=== PATIENT | male | born 1995 | race Caucasian/White ===

== ENCOUNTER 2022-11-06 00:43 | Emergency (ER) | payer OTHER, SELFPAY ==
--- NOTE | ~2022-11-06 | CT_ITS ---
EXAMINATION: CT FACIAL BONES WITHOUT CONTRAST CLINICAL INFORMATION: Right jaw swelling. Concern for osteomyelitis. COMPARISON: None available. TECHNIQUE: Multidetector CT imaging of the facial bones was performed without the use of intravenous contrast. Coronal and sagittal reformats created on an independent workstation were reviewed. This CT examination was performed using dose optimization techniques as appropriate, variously including the following: *Automated exposure control *Adjustment of mA and/or kV according to patient size (this includes techniques or standardized protocols for targeted exams where dose is matched to indication/reason for exam; i.e. extremities or head) *Use of iterative reconstruction technique DLP: 339 mGy-cm FINDINGS: Periapical lucencies involving the right mandibular second and third molars. These do not the root through the lateral mandibular cortex, however do extend along the lateral sockets. The right third mandibular molar is impacted with associated caries of the posterior aspect right ventricular second molar. No significant periapical/odontogenic disease elsewhere. There is no cortical destruction or periosteal reaction of the mandible to suggest osteomyelitis. Marked soft tissue edema throughout the right buccal fat and along the lateral right mandibular body. No drainable collection. There are reactive but nonpathologically enlarged right submandibular and cervical chain lymph nodes. The deep spaces of the neck are symmetric. No deep space infection. No retropharyngeal fluid. Imaged thyroid gland unremarkable. Orbits and globes are normal. Imaged brain parenchyma unremarkable. No facial bone fractures. Paranasal sinuses and mastoid air cells are clear. Imaged cervical spine intact. CT/CT facial bones wo IV con IMPRESSION: * Periapical lucencies involving the right mandibular second and third molars. No evidence of osteomyelitis. * Marked soft tissue edema throughout the right buccal fat and along the lateral aspect of the right mandibular body. No drainable collection. * Reactive but nonpathologically enlarged right submandibular and cervical chain lymph nodes. * No deep space infection.
[2022-11-06 01:09] VITALS: BP 119/73; PULSE 97; RESP 18; TEMP 37.1; O2SAT 95; BMI 21.2
--- NOTE | 2022-11-06 04:25 | ED.DENTAL ---
HPI - Dental/Oral General Chief complaint: Dental/Oral Stated complaint: Infection on rgt side of face and feet? 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 Related Data Previous Rx's Medication Instructions Recorded amoxicillin 875 mg-potassium 1 tab PO BID 7 days #14 tabs 11/06/22 clavulanate 125 mg tablet Allergies Allergy/AdvReac Type Severity Reaction Status Date / Time tree nut [TREE NUT] Allergy Unknown ANAPHYLAXIS Verified 11/06/22 01:11 Review of Systems Review of Systems: Pertinent positives and negatives as stated in HPI [facility] Past Medical History Source: nursing notes reviewed Social History Social History Advance Directives: No Advance Directives Information Provided: Yes Physical Exam Vital Signs: Vital Signs: Last Vital Signs Temp 99.3 F 11/06/22 05:15 Pulse 85 11/06/22 05:15 Resp 16 11/06/22 05:15 BP 105/68 11/06/22 05:15 Pulse Ox 98 11/06/22 05:15 O2 Del Method Room Air 11/06/22 05:15 BMI result Body Mass Index 21.2 VITAL SIGNS: Reviewed. GENERAL: Well developed, well nourished, in no acute distress. HEAD: Normocephalic/atraumatic EYES: PERRLA, EOMI EARS: Ext canals without abnormality, TMs non-bulging and non-erythematous NOSE: Nares patent bilateral OROPHARYNX: Patient with extensive induration of the right cheek extending down along the right lower jaw, there is active drainage occurring with noted fluctuance along the gums/tooth interface NECK: Supple, no adenopathy LUNGS: Normal breath sounds. No adventitious sounds or accessory muscle use. SpO2<95> CARDIOVASCULAR: Regular rate and rhythm without noted murmurs ABDOMEN: Soft, non-tender, non-distended with bowel sounds. MUSCULOSKELETAL: No tenderness, deformities, or effusions noted on gross inspection. EXTREMITIES: No cyanosis, clubbing or edema. SKIN: Inspection of the skin reveals no rashes, obvious track signs from IVDA use NEUROLOGIC: Alert and oriented x 3. Strength and sensation to light touch were grossly intact x 4. Medications Administered Generic Name Dose Route Start Last Admin Trade Name Freq PRN Reason Stop Dose Admin Sodium Chloride 1,000 mls @ 999 mls/hr 11/06/22 06:30 11/06/22 06:34 Ns IV 11/06/22 07:30 999 mls/hr .Q1H1M ODESSA Administration Discontinued Medications Generic Name Dose Route Start Last Admin Trade Name Freq PRN Reason Stop Dose Admin Ceftriaxone Sodium 1 gm/ 50 mls @ 100 mls/hr 11/06/22 05:52 11/06/22 06:08 Sodium Chloride IV 11/06/22 06:21 100 mls/hr ONCE ONE Administration Medical Decision Making Medical Decision Making [facility] Narrative: 0425: I suspect infection and a.m. somewhat concerned about underlying bone involvement as pus is actively draining at this time. I reviewed all investigations and there is no evidence of abscess that is drainable, in addition, no obvious indication of osteomyelitis, patient received IV fluids and antibiotics will be discharged on remaining course of antibiotics. Differential Diagnosis Please see the discussion above Admission/Observation Consideration of admission/observation: Escalation of care including admission/observation considered I did briefly consider admission for IV antibiotics. Lab Data Please see the discussion above 11/06/22 05:47 11/06/22 05:47 Labs: Lab Results 11/06/22 11/06/22 11/06/22 Range/Units 05:15 05:47 05:47 WBC 7.9 (4.8-10.8) X10*3/uL RBC 4.61 (4.60-5.80) X10*6/uL Hgb 13.2 L (14.0-18.0) g/dl Hct 40.1 L (42.0-52.0) % MCV 87.0 (80.0-98.0) fL MCH 28.6 (27.0-33.0) pg MCHC 32.9 (31.0-36.0) g/dl RDW 14.0 (11.0-16.0) % Plt Count 250 (160-400) X10*3/uL MPV 9.1 L (9.4-12.4) fL Immature Gran % (Auto) 0.3 (0.0-0.4) % Neut % (Auto) 70.7 (45-73) % Lymph % (Auto) 19.1 L (20-40) % [place] % (Auto) 9.3 (2-11) % Eos % (Auto) 0.3 (0-4) % Baso % (Auto) 0.3 (0-2) % Lymph # (Auto) 1.5 (1.2-4.9) X10*3/uL [place] # (Auto) 0.7 (0.1-1.2) X10*3/uL Eos # (Auto) 0.0 (0.0-0.4) X10*3/uL Baso # (Auto) 0.0 (0.0-0.2) X10*3/uL Abs Immat Gran (auto) 0.02 (0.00-0.03) X10*3/uL Absolute Neuts (auto) 5.6 (2.0-8.3) x10*3/uL Absolute Nucleated RBC 0.000 (0.0-0.012) X10*3/uL Nucleated RBC % (auto) 0.0 (0.0-0.2) /100WBC Sodium 140 (135-145) mmol/L Potassium 3.9 (3.3-5.1) mmol/L Chloride 102 (96-108) mmol/L Carbon Dioxide 28 (22-29) mmol/L Anion Gap 14 (12-20) BUN 18 H (9-16) mg/dL Creatinine 0.93 (0.5-1.4) mg/dL Estim Creat Clear Calc 90.2 Estimated GFR > 60 Random Glucose 76 (60-115) mg/dL Calcium 9.0 (8.4-10.2) mg/dL Total Bilirubin 0.9 (0.0-1.0) mg/dL AST 23 (5-37) U/L ALT 14 (0-40) U/L Alkaline Phosphatase 59 (39-117) U/L Total Protein 6.4 L (6.5-8.0) g/dL Albumin 4.0 (3.5-5.0) g/dL COVID-19 (JOSELO) Negative (Negative) COVID-19 Clin Com See Note Radiology Impression Radiologist Impression: My interpretation is in agreement with radiology's impression of the imaging studies. Discharge Plan Discharge Clinical Impression: Dental caries, Toothache, Dental abscess, Fracture of tooth Patient Disposition: Home, Self-Care Instructions: Dental Abscess (ED), Toothache (ED) Additional Instructions: Return to the ER for any worsening symptoms, complete the entire course of antibiotics as prescribed, use [id number] Tylenol/ibuprofen as needed for pain control. Prescriptions: New amoxicillin-pot clavulanate 875-125 mg tablet 1 tab PO BID 7 Days Qty: 14 0RF Referrals: Rody Aguirre DO [Primary Care Provider] -
[2022-11-06 05:15] VITALS: BP 105/68; PULSE 85; RESP 16; TEMP 37.4; O2SAT 98
--- NOTE | 2022-11-06 05:26 | PC.NURSE ---
MD Urrutia aware of RN's failed IV sticks x2 and pt's oral temp of 99.3. Another RN to attempt IV access before attempting US guided.
[2022-11-06 05:39] LABS: COVID-19 Test Negative (Negative); IDNOW Serial# BCCEAD1C
[2022-11-06 05:51] LABS: Basophils Percent Auto 0.3 % (0-2); Eosinophils Percent Auto 0.3 % (0-4); Hematocrit 40.1 % (42.0-52.0); Hemoglobin 13.2 g/dl (14.0-18.0); Imm Gran Abs Auto 0.02 X10*3/uL (0.00-0.03); Imm Gran Pct Auto 0.3 % (0.0-0.4); Lymphocytes Absolute Auto 1.5 X10*3/uL (1.2-4.9); Lymphocytes Percent Auto 19.1 % (20-40); MANUAL DIFF FLAG NO; Mean Corpuscular HGB Conc 32.9 g/dl (31.0-36.0); Mean Corpuscular Hemoglobin 28.6 pg (27.0-33.0); Mean Platelet Volume 9.1 fL (9.4-12.4); Monocytes Absolute Auto 0.7 X10*3/uL (0.1-1.2); Monocytes Percent Auto 9.3 % (2-11); Neutrophils Absolute Auto 5.6 x10*3/uL (2.0-8.3); Neutrophils Percent Auto 70.7 % (45-73); Platelet Count 250 X10*3/uL (160-400); Red Blood Count 4.61 X10*6/uL (4.60-5.80); White Blood Count 7.9 X10*3/uL (4.8-10.8)
[2022-11-06] MEDS: cefTRIAXone sodium 1 GM in 0.9 % Sodium Chloride 50 ML IV (06:08)
[2022-11-06 06:13] LABS: Alanine Aminotransferase 14 U/L (0-40); Alkaline Phosphatase 59 U/L (39-117); Anion Gap 14 (12-20); Aspartate Amino Transferase 23 U/L (5-37); Bilirubin Total 0.9 mg/dL (0.0-1.0); Blood Urea Nitrogen 18 mg/dL (9-16); Carbon Dioxide 28 mmol/L (22-29); Chloride 102 mmol/L (96-108); Creatinine Clr Calc Pharmacy 90.2; Estimated Glomerular Filt Rate > 60; Glucose Random 76 mg/dL (60-115); Potassium 3.9 mmol/L (3.3-5.1); Sodium 140 mmol/L (135-145); Total Protein 6.4 g/dL (6.5-8.0)
[2022-11-06] MEDS: 0.9 % Sodium Chloride 1,000 ML 999 ML IV (06:34)
--- NOTE | 2022-11-06 06:52 | PC.NURSE ---
ivf put on a pressure bag per md jauregui request. pt continues to rest without distress and/or issues noted. Pt relocated to ED bed 12 due to staffing
[2022-11-06 06:54] VITALS: BP 108/65; PULSE 76; RESP 16; O2SAT 99
== END 2022-11-06 07:56 | disposition home or self-care (01) ==
PROVIDERS: Emergency Provider Student in an Organized Health Care Education/Training Program; PCP Student in an Organized Health Care Education/Training Program
DX: K04.7 Periapical abscess without sinus (principal); K08.539 Fractured dental restorative material, unspecified; K08.89 Other specified disorders of teeth and supporting structures; K02.9 Dental caries, unspecified; Z20.822 Contact with and (suspected) exposure to COVID-19; F19.10 Other psychoactive substance abuse, uncomplicated
CPT/HCPCS: 36415; 70486; 80053; 85025; 87635; 96361; 96365; 99284; J0696

== ENCOUNTER 2023-01-29 04:57 | Inpatient (IN) | payer OTHER, SELFPAY ==
[2023-01-29] VITALS (17 sets, daily range): BP systolic 83–115; BP diastolic 40–83; PULSE 86–111; RESP 16–29; TEMP 36.3–36.9; O2SAT 90–100; BMI 27.5; BMI 26.4
--- NOTE | 2023-01-29 06:37 | ED.GENADULT ---
HPI - General Adult General Chief complaint: General Medical Stated complaint: right side body pain, infection? Time Seen by Provider: 01/29/23 06:34 Source: patient, RN notes reviewed and old records reviewed Mode of arrival: ambulatory History of Present Illness HPI narrative: 27-year-old male with a past history of IVDA presenting to the ED complaining headache, diffuse joint pain, myalgias, subjective fever, abdominal pain, nausea, chest discomfort with deep breathing, and rash x1 week. Admits symptoms progressively worsening, reports myalgias/joint pain prohibiting from performing daily activities. Also states feels like he cannot take a deep breath. Last used heroin about 4 hours ago, also admits to cocaine use. Denies recent fall/injury, vomiting/diarrhea, vision change/loss. Headache not maximal in onset. Has been taking naproxen and Tylenol without relief Onset (ago): week(s) Related Data Home Medications Medication Instructions Recorded Confirmed mirtazapine 15 mg tablet 15 mg PO BEDTIME 01/29/23 01/29/23 Allergies Allergy/AdvReac Type Severity Reaction Status Date / Time tree nut [TREE NUT] Allergy Unknown ANAPHYLAXIS Verified 11/06/22 01:11 Review of Systems Review of Systems: Constitutional: +Subj Fever, + Chills, No Night Sweats, + Fatigue, + Malaise ENT/Mouth:No Ear Pain, No Nasal Congestion, No Sinus Pain, No Hoarseness, No sore throat, No Rhinorrhea, No Swallowing Difficulty Eyes: No Eye Pain, No Swelling, No Redness, No Foreign Body, No Discharge, No Vision Changes Cardiovascular: + Chest Pain, + SOB, No Dyspnea on Exertion, No Orthopnea, No Edema, No Palpitations Respiratory: No Cough, No Sputum, No Wheezing, No Smoke Exposure, No Dyspnea Gastrointestinal: + Nausea, No Vomiting, No Diarrhea, No Constipation, + Abdominal pain Genitourinary: No Dysuria, No Urinary Frequency, No Hematuria, No Urinary Incontinence/retention, No Flank Pain Musculoskeletal: + joint pain, + Myalgias, + Joint Swelling Skin: No Skin Lesions, + rash Neuro: + Weakness, No Numbness, No Paresthesias, No Loss of Consciousness, No Dizziness, + Headache Psych: No Anxiety/Panic, No Depression, No SI/HI/AH/VH, + Social Issues Yes all other systems are reviewed and are negative Constitutional: Constitutional: Reports as per [facility] Past Medical History Attestation statement: The following information was validated with the patient. Source: old records reviewed Social History Social History Smoked in Last 30 Days: Yes Use of substances other than those prescribed or required for medical reasons: Yes Substance Use Type: IV Drugs Substance Use Frequency: Chronic Longstanding Last Used Substance: Just Prior to Admission Advance Directives: No Advance Directives Information Provided: Yes Physical Exam ED Vital Signs: Vital Signs - 24 hr 01/29/23 04:58 01/29/23 06:32 01/29/23 08:56 Temperature 97.8 F 98.2 F Pulse Rate 111 H 93 88 Respiratory Rate 18 16 17 Blood Pressure 93/43 L 83/45 L 85/40 L Pulse Oximetry 100 95 95 Oxygen Delivery Method Room Air Room Air Room Air 01/29/23 09:30 01/29/23 11:08 01/29/23 11:30 Temperature 97.3 F Pulse Rate 92 86 Respiratory Rate 18 16 Blood Pressure 89/50 L 91/46 L Pulse Oximetry 92 97 Oxygen Delivery Method Room Air Room Air 01/29/23 12:30 01/29/23 13:18 Temperature 98.0 F Pulse Rate 93 Respiratory Rate 29 H Blood Pressure 92/83 99/42 L Pulse Oximetry 92 Oxygen Delivery Method Room Air BMI result Body Mass Index 27.5 Const Other: Appears under the influence General: cooperative, no acute distress and alert Orientation/consciousness: patient oriented x3 Limitations: no limitations HENMT Head: Yes normal to inspection and Yes atraumatic Ears: hearing grossly normal bilaterally General nose exam: Normal external nose present Face and sinus: Yes normal facial exam Throat: Yes posterior oropharynx normal Eyes General: appearance normal, both eyes and all related structures Pupils: Equal, round and reactive pupils present and Pinpoint pupils bilaterally EOM: EOMs intact bilaterally Neck Neck: Yes normal visual inspection, Yes no meningeal signs and No anterior neck swelling Resp Effort & Inspection: normal respiratory effort and no respiratory distress Auscultation: clear to auscultation bilaterally, no crackles, no rales, no rhonchi and no wheezes Cardio Rate: regular rate Heart sounds: S1 normal heart sound present and S2 normal heart sound present GI Inspection: Yes normal to inspection Palpation (GI): Soft to palpation, Tenderness to palpation present (GI) in the RLQ; with no rebound tenderness, no guarding and not rigid General: Yes no CVA tenderness Back/Spine/Pelvis Other: No midline cervical/thoracic/lumbar spinous tenderness/step-off or deformity Back: no CVA tenderness Skin Other: Please refer to images above, faint petechiae to bilateral feet/ankles. No splinter hemorrhages or [place]ay lesions Wounds: no wounds Neuro General: patient oriented x3, tone normal, moves all extremities, no meningeal signs, no focal motor deficits and CN's II-XI intact bilaterally Cranial nerves: Yes CN's II-XII intact bilaterally, Yes Equal, round and reactive pupils present and Yes Bilaterally intact EOM present Motor exam (neuro): 5/5 motor strength present throughout Extrem Other: Right elbow pain noted bursitis with slight erythema, no warmth, nontender Course Course Course Narrative: -810--no leukocytosis. 17% bands noted on differential. H&H with decrease from October > patient denies melena/brbpr or hematuria. Occult stool obtained Patient persistently hypotensive, will give total 3L IVF -MEHDI with a BUN of 53, creatinine of 1.76, lactic acidosis of 2.3. CRP elevated to 31 -D-dimer elevated to 2980 > patient already obtained CT AP with IV contrast, will obtain V/Q scan XR chest 2V IMPRESSION: Multifocal regions of disease which may be related to multifocal pneumonitis. 1000--CT abdomen pelvis w IV con IMPRESSION: 1.? Appendix not clearly visualized. However, no inflammatory changes in the right lower quadrant. 2.? Numerous patchy and nodular opacities noted throughout the partially visualized right and left lung. Possible cavitation of one of the small left basilar nodular opacities. The appearance is nonspecific. This most likely reflect an infectious or inflammatory process. The overall appearance raises the question of septic emboli neoplasm cannot be excluded but is thought to be much less likely. ? Fleischner guidelines were followed. > findings suspicious for endocarditis. Patient will need admission for further workup. Empirically covered with Vancomycin and Zosyn. 1027--patient currently in nuclear Medicine, will continue to monitor BP. If remains hypotensive w/ initiate peripheral pressors -1115--patient has now received 2.5L IVF > persistently hypotensive 89/50, will consult planning feeder, and likely initiate pressors > Dr. Arora recommended 2 bottles of IV albumin, hold off on pressors in the meantime, if remains hypotensive will be admitted to the ICU -patient's blood pressure improving, most recently 99/42. Accepted to hospitalist service -1450--patient was pending admission to hospitalist service, however, on recheck became hypotensive again 86/44. Re-consulted planning feeder, Dr. Arora, patient accepted to ICU Medications Administered Discontinued Medications Generic Name Dose Route Start Last Admin Trade Name Marciano PRN Reason Stop Dose Admin Acetaminophen 650 mg 01/29/23 12:36 01/29/23 13:18 Acetaminophen 325 Mg Tablet PO 01/29/23 12:37 650 mg ONCE ONE Administration Sodium Chloride 1,000 mls @ 999 mls/hr 01/29/23 07:00 01/29/23 08:26 Ns IV 01/29/23 08:00 Infused .Q1H1M ODESSA Infusion Piperacillin Sod/Tazobactam 50 mls @ 100 mls/hr 01/29/23 07:09 01/29/23 08:26 Sod 3.375 gm/ Sodium Chloride IV 01/29/23 07:38 Infused ONCE ONE Infusion Sodium Chloride 1,000 mls @ 999 mls/hr 01/29/23 08:00 01/29/23 09:31 Ns IV 01/29/23 09:00 Infused .Q1H1M ODESSA Infusion Vancomycin HCl 1,000 mg/ 535 mls @ 267.5 mls/hr 01/29/23 08:16 01/29/23 11:08 Vancomycin HCl 750 mg/ Sodium IV 01/29/23 10:15 Infused Chloride ONCE ONE Infusion Sodium Chloride 1,000 mls @ 999 mls/hr 01/29/23 09:00 01/29/23 10:44 Ns IV 01/29/23 10:00 Infused .Q1H1M ODESSA Infusion Albumin Human 100 mls @ 100 mls/hr 01/29/23 11:30 01/29/23 13:18 Kedbumin 25 % IV 01/29/23 13:29 Infused Q1H [facility] Infusion Iohexol 65 ml 01/29/23 08:31 01/29/23 08:32 Iohexol 350 Mg/Ml 100 Ml Infus..Btl IV 01/29/23 08:32 65 ml ONCE ONE Administration Ketorolac Tromethamine 15 mg 01/29/23 12:36 01/29/23 13:18 Ketorolac Tromethamine 15 Mg/Ml Vial IVPUSH 01/29/23 12:37 15 mg ONCE ONE Administration Medical Decision Making Medical Decision Making [facility] Narrative: 27-year-old male with a past history of IVDA presenting to the ED complaining headache, diffuse joint pain, myalgias, subjective fever, abdominal pain, nausea, chest discomfort with deep breathing, and rash x1 week. On exam initially tachycardic, hypotensive, afebrile, appears under the influence, alert/easily arousable, physical exam as above, no focal neuro deficits, abdomen soft and RLQ tenderness, diffuse myalgias, faint petechiae to bilateral lower extremities. Lungs CTA. Concern for viral syndrome vs rhabdo vs metabolic abnormality/infectious etiology vs intra-abdominal pathology including appendicitis/diverticulitis vs ? Pneumonia/DVT. Concern for endocarditis . Lower suspicion for epidural abscess/cauda equina Plan: EKG, labs, UA, drug screen, CXR, CT AP, lactic/blood cultures, empiric IV antibiotics Please refer to course for remaining clinical decision making, interpretation of labs/imaging results, and discussions with consultants and/or family members. Differential Diagnosis Differential Diagnoses: The differential diagnosis associated with the presentation includes As above Admission/Observation Consideration of admission/observation: Escalation of care including admission/observation considered Consult Healthcare Provider Management of the patient was discussed with: Machine Tool Electrician (Tube Worker, Dr. Arora) Lab Data [facility] Lab Attestation statement: I reviewed the patient's lab results. 01/29/23 07:22 01/29/23 07:22 Labs: Lab Results 01/29/23 01/29/23 01/29/23 Range/Units 07:22 07:22 07:22 WBC 9.8 (4.8-10.8) X10*3/uL RBC 3.77 L (4.60-5.80) X10*6/uL Hgb 10.4 L D (14.0-18.0) g/dl Hct 30.6 L D (42.0-52.0) % MCV 81.2 (80.0-98.0) fL MCH 27.6 (27.0-33.0) pg MCHC 34.0 (31.0-36.0) g/dl RDW 14.6 (11.0-16.0) % Plt Count 65 L D (160-400) X10*3/uL MPV 12.8 H (9.4-12.4) fL Immature Gran % (Auto) Cancelled Neut % (Auto) Cancelled Lymph % (Auto) Cancelled Hart % (Auto) Cancelled Eos % (Auto) Cancelled Baso % (Auto) Cancelled Lymph # (Auto) Cancelled Hart # (Auto) Cancelled Eos # (Auto) Cancelled Baso # (Auto) Cancelled Abs Immat Gran (auto) Cancelled Absolute Neuts (auto) Cancelled Absolute Nucleated RBC 0.000 (0.0-0.012) X10*3/uL Nucleated RBC % (auto) 0.0 (0.0-0.2) /100WBC Neutrophils % (Manual) 76 H (45-73) % Band Neutrophils % 17 H (3-5) % Lymphocytes % (Manual) 5 L (20-40) % Monocytes % (Manual) 2 (2-11) % Abs Neuts (Manual) 9.1 H (2.0-8.3) X10*3/uL Lymphocytes # (Manual) 0.5 L (1.2-4.9) X10*3/uL Monocytes # (Manual) 0.2 (0.1-1.2) X10*3/uL Toxic Vacuolation PRESENT Dohle Bodies PRESENT Platelet Estimate DECREASED (NORMAL) Plt Morphology Comment NORMAL RBC Morphology NOTED Hypochromasia 1+ (5-14) /OIF Acanthocytes (Spur) 2+ (3-5) /OIF ESR 28 H (0-15) MM/HR PT (10.0-13.1) SEC INR (0.9-1.1) APTT (26.0-36.4) SEC D-Dimer High Sensitivty NG/ML Sodium 132 L (135-145) mmol/L Potassium 4.2 (3.3-5.1) mmol/L Chloride 95 L (96-108) mmol/L Carbon Dioxide 27 (22-29) mmol/L Anion Gap 14 (12-20) BUN 53 H (9-16) mg/dL Creatinine 1.76 H (0.5-1.4) mg/dL Estim Creat Clear Calc 56.5 Estimated GFR 46 Random Glucose 119 H (60-115) mg/dL Lactic Acid (0.5-2.0) mmol/L Lactic Acid F/U @ 2Hr (0.5-2.0) mmol/L Calcium 8.6 (8.4-10.2) mg/dL Magnesium 2.5 (1.6-2.6) mg/dL Total Bilirubin 0.8 (0.0-1.0) mg/dL Direct Bilirubin 0.4 (0.0-0.5) mg/dL AST 44 H (5-37) U/L ALT 23 (0-40) U/L Alkaline Phosphatase 193 H (39-117) U/L Total Creatine Kinase 17 L (38-174) U/L Troponin I High Sens (<3.5-35.0) ng/L C-Reactive Protein 31.87 H (< or = 0.50) mg/dL B-Natriuretic Peptide (<100) pg/mL Total Protein 5.6 L (6.5-8.0) g/dL Albumin 2.3 L (3.5-5.0) g/dL Lipase 6 L (8-78) U/L Urine Color Urine Appearance Urine pH (5.0-9.0) Ur Specific Dunlap (1.005-1.025) Urine Protein (Neg-Trace) mg/dL Urine Glucose (UA) (Negative) mg/dL Urine Ketones (Negative) mg/dL Urine Blood (Negative) Urine Nitrite (Negative) Ur Leukocyte Esterase (Negative) Urine RBC (0-2) /HPF Urine WBC (0-5) /HPF Ur Squamous Epith Cells (0-2) /HPF Urine Bacteria (None Seen) Hyaline Casts (0-2) /LPF Stool Occult Blood (NEGATIVE) Salicylates (15-30) mg/dL Urine Opiates Screen (Not Detect) Urine Fentanyl Screen (Not Detect) Acetaminophen (<30) mcg/mL Ur Barbiturates Screen (Not Detect) Ur Phencyclidine Scrn (Not Detect) Ur Amphetamines Screen (Not Detect) U Benzodiazepines Scrn (Not Detect) Urine Cocaine Screen (Not Detect) U Marijuana (THC) Screen (Not Detect) COVID-19 (JOSELO) (Negative) COVID-19 Clin Com 01/29/23 01/29/23 01/29/23 Range/Units 07:22 07:22 07:22 WBC (4.8-10.8) X10*3/uL RBC (4.60-5.80) X10*6/uL Hgb (14.0-18.0) g/dl Hct (42.0-52.0) % MCV (80.0-98.0) fL MCH (27.0-33.0) pg MCHC (31.0-36.0) g/dl RDW (11.0-16.0) % Plt Count (160-400) X10*3/uL MPV (9.4-12.4) fL Immature Gran % (Auto) Neut % (Auto) Lymph % (Auto) Hart % (Auto) Eos % (Auto) Baso % (Auto) Lymph # (Auto) Hart # (Auto) Eos # (Auto) Baso # (Auto) Abs Immat Gran (auto) Absolute Neuts (auto) Absolute Nucleated RBC (0.0-0.012) X10*3/uL Nucleated RBC % (auto) (0.0-0.2) /100WBC Neutrophils % (Manual) (45-73) % Band Neutrophils % (3-5) % Lymphocytes % (Manual) (20-40) % Monocytes % (Manual) (2-11) % Abs Neuts (Manual) (2.0-8.3) X10*3/uL Lymphocytes # (Manual) (1.2-4.9) X10*3/uL Monocytes # (Manual) (0.1-1.2) X10*3/uL Toxic Vacuolation Dohle Bodies Platelet Estimate (NORMAL) Plt Morphology Comment RBC Morphology Hypochromasia /OIF Acanthocytes (Spur) /OIF ESR (0-15) MM/HR PT 14.7 H (10.0-13.1) SEC INR 1.3 H (0.9-1.1) APTT 27.5 (26.0-36.4) SEC D-Dimer High Sensitivty 2980 NG/ML Sodium (135-145) mmol/L Potassium (3.3-5.1) mmol/L Chloride (96-108) mmol/L Carbon Dioxide (22-29) mmol/L Anion Gap (12-20) BUN (9-16) mg/dL Creatinine (0.5-1.4) mg/dL Estim Creat Clear Calc Estimated GFR Random Glucose (60-115) mg/dL Lactic Acid 2.3 H* (0.5-2.0) mmol/L Lactic Acid F/U @ 2Hr (0.5-2.0) mmol/L Calcium (8.4-10.2) mg/dL Magnesium (1.6-2.6) mg/dL Total Bilirubin (0.0-1.0) mg/dL Direct Bilirubin (0.0-0.5) mg/dL AST (5-37) U/L ALT (0-40) U/L Alkaline Phosphatase (39-117) U/L Total Creatine Kinase (38-174) U/L Troponin I High Sens (<3.5-35.0) ng/L C-Reactive Protein (< or = 0.50) mg/dL B-Natriuretic Peptide (<100) pg/mL Total Protein (6.5-8.0) g/dL Albumin (3.5-5.0) g/dL Lipase (8-78) U/L Urine Color Urine Appearance Urine pH (5.0-9.0) Ur Specific Dunlap (1.005-1.025) Urine Protein (Neg-Trace) mg/dL Urine Glucose (UA) (Negative) mg/dL Urine Ketones (Negative) mg/dL Urine Blood (Negative) Urine Nitrite (Negative) Ur Leukocyte Esterase (Negative) Urine RBC (0-2) /HPF Urine WBC (0-5) /HPF Ur Squamous Epith Cells (0-2) /HPF Urine Bacteria (None Seen) Hyaline Casts (0-2) /LPF Stool Occult Blood (NEGATIVE) Salicylates < 5.0 L (15-30) mg/dL Urine Opiates Screen (Not Detect) Urine Fentanyl Screen (Not Detect) Acetaminophen < 17 (<30) mcg/mL Ur Barbiturates Screen (Not Detect) Ur Phencyclidine Scrn (Not Detect) Ur Amphetamines Screen (Not Detect) U Benzodiazepines Scrn (Not Detect) Urine Cocaine Screen (Not Detect) U Marijuana (THC) Screen (Not Detect) COVID-19 (JOSELO) (Negative) COVID-19 Clin Com 07/01/23 07/01/23 07/01/23 Range/Units 07:22 07:22 07:22 WBC (4.8-10.8) X10*3/uL RBC (4.60-5.80) X10*6/uL Hgb (14.0-18.0) g/dl Hct (42.0-52.0) % MCV (80.0-98.0) fL MCH (27.0-33.0) pg MCHC (31.0-36.0) g/dl RDW (11.0-16.0) % Plt Count (160-400) X10*3/uL MPV (9.4-12.4) fL Immature Gran % (Auto) Neut % (Auto) Lymph % (Auto) Hart % (Auto) Eos % (Auto) Baso % (Auto) Lymph # (Auto) Hart # (Auto) Eos # (Auto) Baso # (Auto) Abs Immat Gran (auto) Absolute Neuts (auto) Absolute Nucleated RBC (0.0-0.012) X10*3/uL Nucleated RBC % (auto) (0.0-0.2) /100WBC Neutrophils % (Manual) (45-73) % Band Neutrophils % (3-5) % Lymphocytes % (Manual) (20-40) % Monocytes % (Manual) (2-11) % Abs Neuts (Manual) (2.0-8.3) X10*3/uL Lymphocytes # (Manual) (1.2-4.9) X10*3/uL Monocytes # (Manual) (0.1-1.2) X10*3/uL Toxic Vacuolation Dohle Bodies Platelet Estimate (NORMAL) Plt Morphology Comment RBC Morphology Hypochromasia /OIF Acanthocytes (Spur) /OIF ESR (0-15) MM/HR PT (10.0-13.1) SEC INR (0.9-1.1) APTT (26.0-36.4) SEC D-Dimer High Sensitivty NG/ML Sodium (135-145) mmol/L Potassium (3.3-5.1) mmol/L Chloride (96-108) mmol/L Carbon Dioxide (22-29) mmol/L Anion Gap (12-20) BUN (9-16) mg/dL Creatinine (0.5-1.4) mg/dL Estim Creat Clear Calc Estimated GFR Random Glucose (60-115) mg/dL Lactic Acid (0.5-2.0) mmol/L Lactic Acid F/U @ 2Hr (0.5-2.0) mmol/L Calcium (8.4-10.2) mg/dL Magnesium (1.6-2.6) mg/dL Total Bilirubin (0.0-1.0) mg/dL Direct Bilirubin (0.0-0.5) mg/dL AST (5-37) U/L ALT (0-40) U/L Alkaline Phosphatase (39-117) U/L Total Creatine Kinase (38-174) U/L Troponin I High Sens < 2.7 (<3.5-35.0) ng/L C-Reactive Protein (< or = 0.50) mg/dL B-Natriuretic Peptide 68 (<100) pg/mL Total Protein (6.5-8.0) g/dL Albumin (3.5-5.0) g/dL Lipase (8-78) U/L Urine Color Urine Appearance Urine pH (5.0-9.0) Ur Specific Dunlap (1.005-1.025) Urine Protein (Neg-Trace) mg/dL Urine Glucose (UA) (Negative) mg/dL Urine Ketones (Negative) mg/dL Urine Blood (Negative) Urine Nitrite (Negative) Ur Leukocyte Esterase (Negative) Urine RBC (0-2) /HPF Urine WBC (0-5) /HPF Ur Squamous Epith Cells (0-2) /HPF Urine Bacteria (None Seen) Hyaline Casts (0-2) /LPF Stool Occult Blood (NEGATIVE) Salicylates (15-30) mg/dL Urine Opiates Screen (Not Detect) Urine Fentanyl Screen (Not Detect) Acetaminophen (<30) mcg/mL Ur Barbiturates Screen (Not Detect) Ur Phencyclidine Scrn (Not Detect) Ur Amphetamines Screen (Not Detect) U Benzodiazepines Scrn (Not Detect) Urine Cocaine Screen (Not Detect) U Marijuana (THC) Screen (Not Detect) COVID-19 (JOSELO) Negative (Negative) COVID-19 Clin Com See Note 01/29/23 01/29/23 01/29/23 Range/Units 08:29 08:41 08:41 WBC (4.8-10.8) X10*3/uL RBC (4.60-5.80) X10*6/uL Hgb (14.0-18.0) g/dl Hct (42.0-52.0) % MCV (80.0-98.0) fL MCH (27.0-33.0) pg MCHC (31.0-36.0) g/dl RDW (11.0-16.0) % Plt Count (160-400) X10*3/uL MPV (9.4-12.4) fL Immature Gran % (Auto) Neut % (Auto) Lymph % (Auto) Hart % (Auto) Eos % (Auto) Baso % (Auto) Lymph # (Auto) Hart # (Auto) Eos # (Auto) Baso # (Auto) Abs Immat Gran (auto) Absolute Neuts (auto) Absolute Nucleated RBC (0.0-0.012) X10*3/uL Nucleated RBC % (auto) (0.0-0.2) /100WBC Neutrophils % (Manual) (45-73) % Band Neutrophils % (3-5) % Lymphocytes % (Manual) (20-40) % Monocytes % (Manual) (2-11) % Abs Neuts (Manual) (2.0-8.3) X10*3/uL Lymphocytes # (Manual) (1.2-4.9) X10*3/uL Monocytes # (Manual) (0.1-1.2) X10*3/uL Toxic Vacuolation Dohle Bodies Platelet Estimate (NORMAL) Plt Morphology Comment RBC Morphology Hypochromasia /OIF Acanthocytes (Spur) /OIF ESR (0-15) MM/HR PT (10.0-13.1) SEC INR (0.9-1.1) APTT (26.0-36.4) SEC D-Dimer High Sensitivty NG/ML Sodium (135-145) mmol/L Potassium (3.3-5.1) mmol/L Chloride (96-108) mmol/L Carbon Dioxide (22-29) mmol/L Anion Gap (12-20) BUN (9-16) mg/dL Creatinine (0.5-1.4) mg/dL Estim Creat Clear Calc Estimated GFR Random Glucose (60-115) mg/dL Lactic Acid (0.5-2.0) mmol/L Lactic Acid F/U @ 2Hr (0.5-2.0) mmol/L Calcium (8.4-10.2) mg/dL Magnesium (1.6-2.6) mg/dL Total Bilirubin (0.0-1.0) mg/dL Direct Bilirubin (0.0-0.5) mg/dL AST (5-37) U/L ALT (0-40) U/L Alkaline Phosphatase (39-117) U/L Total Creatine Kinase (38-174) U/L Troponin I High Sens (<3.5-35.0) ng/L C-Reactive Protein (< or = 0.50) mg/dL B-Natriuretic Peptide (<100) pg/mL Total Protein (6.5-8.0) g/dL Albumin (3.5-5.0) g/dL Lipase (8-78) U/L Urine Color Yellow Urine Appearance Cloudy Urine pH 5.5 (5.0-9.0) Ur Specific Dunlap 1.015 (1.005-1.025) Urine Protein 30 (1+) H (Neg-Trace) mg/dL Urine Glucose (UA) Negative (Negative) mg/dL Urine Ketones Negative (Negative) mg/dL Urine Blood Negative (Negative) Urine Nitrite Negative (Negative) Ur Leukocyte Esterase Small (1+) H (Negative) Urine RBC 0-2 (0-2) /HPF Urine WBC 11-20 H (0-5) /HPF Ur Squamous Epith Cells 6-10 (0-2) /HPF Urine Bacteria None Seen (None Seen) Hyaline Casts 6-10 (0-2) /LPF Stool Occult Blood NEGATIVE (NEGATIVE) Salicylates (15-30) mg/dL Urine Opiates Screen POSITIVE H (Not Detect) Urine Fentanyl Screen POSITIVE H (Not Detect) Acetaminophen (<30) mcg/mL Ur Barbiturates Screen Not Detected (Not Detect) Ur Phencyclidine Scrn Not Detected (Not Detect) Ur Amphetamines Screen Not Detected (Not Detect) U Benzodiazepines Scrn Not Detected (Not Detect) Urine Cocaine Screen POSITIVE H (Not Detect) U Marijuana (THC) Screen Not Detected (Not Detect) COVID-19 (JOSELO) (Negative) COVID-19 Clin Com 01/29/23 Range/Units 09:53 WBC (4.8-10.8) X10*3/uL RBC (4.60-5.80) X10*6/uL Hgb (14.0-18.0) g/dl Hct (42.0-52.0) % MCV (80.0-98.0) fL MCH (27.0-33.0) pg MCHC (31.0-36.0) g/dl RDW (11.0-16.0) % Plt Count (160-400) X10*3/uL MPV (9.4-12.4) fL Immature Gran % (Auto) Neut % (Auto) Lymph % (Auto) Hart % (Auto) Eos % (Auto) Baso % (Auto) Lymph # (Auto) Hart # (Auto) Eos # (Auto) Baso # (Auto) Abs Immat Gran (auto) Absolute Neuts (auto) Absolute Nucleated RBC (0.0-0.012) X10*3/uL Nucleated RBC % (auto) (0.0-0.2) /100WBC Neutrophils % (Manual) (45-73) % Band Neutrophils % (3-5) % Lymphocytes % (Manual) (20-40) % Monocytes % (Manual) (2-11) % Abs Neuts (Manual) (2.0-8.3) X10*3/uL Lymphocytes # (Manual) (1.2-4.9) X10*3/uL Monocytes # (Manual) (0.1-1.2) X10*3/uL Toxic Vacuolation Dohle Bodies Platelet Estimate (NORMAL) Plt Morphology Comment RBC Morphology Hypochromasia /OIF Acanthocytes (Spur) /OIF ESR (0-15) MM/HR PT (10.0-13.1) SEC INR (0.9-1.1) APTT (26.0-36.4) SEC D-Dimer High Sensitivty NG/ML Sodium (135-145) mmol/L Potassium (3.3-5.1) mmol/L Chloride (96-108) mmol/L Carbon Dioxide (22-29) mmol/L Anion Gap (12-20) BUN (9-16) mg/dL Creatinine (0.5-1.4) mg/dL Estim Creat Clear Calc Estimated GFR Random Glucose (60-115) mg/dL Lactic Acid (0.5-2.0) mmol/L Lactic Acid F/U @ 2Hr 2.2 H* (0.5-2.0) mmol/L Calcium (8.4-10.2) mg/dL Magnesium (1.6-2.6) mg/dL Total Bilirubin (0.0-1.0) mg/dL Direct Bilirubin (0.0-0.5) mg/dL AST (5-37) U/L ALT (0-40) U/L Alkaline Phosphatase (39-117) U/L Total Creatine Kinase (38-174) U/L Troponin I High Sens (<3.5-35.0) ng/L C-Reactive Protein (< or = 0.50) mg/dL B-Natriuretic Peptide (<100) pg/mL Total Protein (6.5-8.0) g/dL Albumin (3.5-5.0) g/dL Lipase (8-78) U/L Urine Color Urine Appearance Urine pH (5.0-9.0) Ur Specific [place] (1.005-1.025) Urine Protein (Neg-Trace) mg/dL Urine Glucose (UA) (Negative) mg/dL Urine Ketones (Negative) mg/dL Urine Blood (Negative) Urine Nitrite (Negative) Ur Leukocyte Esterase (Negative) Urine RBC (0-2) /HPF Urine WBC (0-5) /HPF Ur Squamous Epith Cells (0-2) /HPF Urine Bacteria (None Seen) Hyaline Casts (0-2) /LPF Stool Occult Blood (NEGATIVE) Salicylates (15-30) mg/dL Urine Opiates Screen (Not Detect) Urine Fentanyl Screen (Not Detect) Acetaminophen (<30) mcg/mL Ur Barbiturates Screen (Not Detect) Ur Phencyclidine Scrn (Not Detect) Ur Amphetamines Screen (Not Detect) U Benzodiazepines Scrn (Not Detect) Urine Cocaine Screen (Not Detect) U Marijuana (THC) Screen (Not Detect) COVID-19 (JOSELO) (Negative) COVID-19 Clin Com Radiology Impression Discussion of test interpretation with radiology: I have reviewed the radiologist's reading. Independent Historian Clinical information obtained from an independent historian. History obtained from or confirmed by: Friend External Record Review External record reviewed: Inpatient record, Office record, Outpatient record, Prior outpatient labs, Prior outpatient radiology, Primary care record and Outside ED record Tests considered The following testing was considered but not selected: As above Prescription Management I considered prescription management with: Pain Medication and Antibiotic Social Determinants Patient?s care significantly limited by Social Determinants of Health including: Alcoholism and drug addiction in family, Problems related to primary support group and Other Social Determinant of Health Critical Care Time Critical Care Time Critical Care Time: Yes Total Critical Care Time: 60 Attestation: I have personally provided critical care time exclusive of time spent on separately billable procedures. Time includes review of lab data, radiology results, discussion with consultants, and monitoring for potential decompensation. Intervention performed as documented. Discharge Plan Discharge Clinical Impression: Acute septic pulmonary embolus, MEHDI (acute kidney injury), Acidosis, lactic Patient Disposition: Admitted As Inpatient
--- NOTE | 2023-01-29 07:00 | PC.NURSE ---
this rn made melissa vogel aware of low bp abdias to bedside. abdias and discharge specialist made aware by this rn that pt reports last use of heroin x2hrs ago. this rn spoke with melissa vogel regarding securing belongings and changing pt over. per melissa pt to be changed over. this rn contacted security for assistance with change booth attendant, rn to rn report given to oncoming nurse. oncoming nurse to bedside. pt placed on youth nutritional monitor. pt friend at bedside
[2023-01-29] MEDS: 0.9 % Sodium Chloride 1,000 ML 999 ML IV ×3 (07:20→09:31)
--- NOTE | 2023-01-29 07:26 | PC.NURSE ---
resumed care of pt, IV/labs obtained, changed over with security and belongings taken to [facility]. Pt is currently a/ox4. Reports using IV heroin prior to admission, reporting 10-15 bag a day usage, w/ decrease in going to methadone clinic d/t transportation. Pt does not desire rehab at this time, just got out of a [address] [facility] recently. Multiple areas of bruising and needle tracks noted all over body, rash noted on feet. Pt reporting its making it hard for him to ambulate. will await further orders at this time
[2023-01-29] MEDS: Piperacillin Sodium/Tazobactam 3.375 GM in 0.9 % Sodium Chloride 50 ML IV (07:38)
[2023-01-29] MEDS: iohexoL 350 MG/ML 100 ML INFUS..BTL 65 ML IV (08:32)
[2023-01-29] MEDS: vancomycin HCL 1,000 MG, vancomycin HCL 750 MG in 0.9 % Sodium Chloride 500 ML 267.5 MG IV (08:52)
--- NOTE | 2023-01-29 09:40 | PC.NURSE ---
Provider made aware of BP, trending mid 80's/40's, 3L NS ordered and running, second IV obtained. Nuc med to come take pt shortly for scan. BP set q 15 miinutes, Pt educated to not remove cuff off arm
--- NOTE | 2023-01-29 10:26 | PC.NURSE ---
Pt currently off floor at [facility]
--- NOTE | 2023-01-29 12:20 | PHA.PROG ---
Admission Date/Time: Indication: OTHER? POSSIBLE ENDOCARDITIS PER NOTE Weight in k.575 kg Adjusted body weight in K.55 Strawberry body weight in Kg: Obesity Dosing Indication % IBW: Serum Creatinine - Last 168 Hours 01/29/23 07:22 Creatinine 1.76 H Estimated CrCl and GFR - Last 168 Hours 01/29/23 07:22 Estim Creat Clear Calc 56.5 Estimated GFR 46 Vancomycin Loading Dose: 1750 MG Current Vancomycin Dosing Regimen: 1250 Q24H Vancomycin Monitoring using AUC goal of 400 - 600 range with trough as surrogate marker: AUC 459, TROUGH 13.2 Date and Time for next Vancomycin Level to be drawn: RANDOM 01/31 @0700 Pharmacist Comments on Vancomycin Plan: -IF RENAL FUNCTION IMPROVES, CHANGE TO Q12H TOMORROW Vancomycin dosing will take advantage of [employer] as a clinical decision support tool that uses Bayesian modeling to calculate individual patient's pharmacokinetic parameters and forecast the patient's drug concentration time course with the target goal AUC 24 range of 400 - 600 mg/L/hr.
--- NOTE | 2023-01-29 13:46 | PHA.MEDREC ---
Pharmacy Consult ? Medication Reconciliation Pharmacy has completed the medication reconciliation.
--- NOTE | 2023-01-29 15:13 | MHC.RECOVRN ---
This typewriter assembly and parts inspector met with patient, patient lying in bed, eyes closed. Pt reports diffuse bodyaches, N/D. Pt reports opiate use [employer], early this morning. Pt states last dose MTD at least 4 days ago, 40mg MTD. Pt interested in MTD dose for withdrawal s/s. This typewriter assembly and parts inspector confirmed last dose 40mg 01/23/23, reviewed results with Provider, Provider agreeable to 20mg MTD to start with PRN dose to be ordered for later tonite.
--- NOTE | 2023-01-29 15:21 | PM.CCHP ---
History of Present Illness Date of Service: 01/29/23 Chief Complaint: Malaise 27-year-old gentleman admitted on 01/29/2023 with initial complaints of malaise and fever. On ER evaluation hypertensive with concern for sepsis with suboptimal response to initial IV fluid resuscitation requiring colloidal support. Also is polysubstance abuse/withdrawal. Admitted to intensive care unit and started broad-spectrum antibiotics. Review of Systems Constitutional: Constitutional: Denies daytime sleepiness, Denies excessive sweating, Reports fatigue, Reports fever(s), Denies lethargy, Reports malaise, Denies night sweats, Denies snoring and Denies weight loss Eyes: Eyes: Denies blurry vision and Denies itchy eyes ENT: Denies nasal congestion, Denies post nasal drip, Denies sinus pain, Denies sinus pressure and Denies other ( Thrush) Cardiovascular: Cardiovascular: Denies chest pain, Denies pedal edema, Denies dyspnea, Denies orthopnea and Denies paroxysmal nocturnal dyspnea Respiratory: Respiratory: Denies cough, Denies hemoptysis, Denies excessive phlegm production, Denies dyspnea, Denies snoring and Denies wheezing Gastrointestinal: Gastrointestinal: Denies abdominal pain and Denies heartburn Musculoskeletal: Musculoskeletal: Reports myalgias, Reports arthralgias and Denies joint swelling Integumentary/Breasts: Skin/Breast: Reports rash Neurologic: Denies memory loss and Denies seizure-like activity Psychiatric: Psychiatric: Denies abnormal sleep pattern, Denies anxiety and Denies memory loss Endocrine: Endocrine: Denies excessive sweating, Reports fatigue and Denies heat intolerance Hematologic/Lymphatic: Hematologic/Lymphatic: Denies easy bruising Allergic/Immunologic: Allergic/Immunologic: Denies itchy eyes, Denies seasonal rhinorrhea and Denies wheezing [facility] Social History Social History Household Members: Friend(s) Housing: Apartment Do you presently have visiting nurse or other home services: No Patient Tobacco Use Status: Current everyday Tobacco user Tobacco use type: Cigarette Cigarette Packs Per Day: 1 Cigarettes Per Day: 20.0 Smoked in Last 30 Days: Yes e-Cigarette/Vaping Use: Currently Using Patient Interested in Nicotine Replacement: Yes Patient Given Instructions on How to Stop Smoking: Yes Date Education Initiated: 01/29/23 Second Hand Smoke Exposure: Yes Use of substances other than those prescribed or required for medical reasons: Yes Substance Use Type: Crack/Cocaine, IV Drugs and Opiates Substance Use Frequency: Daily Last Used Substance: Just Prior to Admission Currently Displaying Signs/Symptoms of Drug Intoxication Withdrawal: No Any prior treatment program specific to substance use: Yes Have you been hit, kicked, punched, or otherwise hurt by someone within the past year? If so, by whom?: No Do you feel safe in your current relationship?: No Current Relationship Is there a partner from a previous relationship who is making you feel unsafe now?: No Are you made to feel afraid or neglected: No Spiritual Healthcare Practices: unable to respond Advance Directives: No Advance Directives Information Provided: Yes Advance Directives on File: No Recently lost weight without trying: Unsure Nutrition Risks: Dental problems and Difficulty chewing Poor oral hygiene: Yes Meds Allergies Allergy/AdvReac Type Severity Reaction Status Date / Time tree nut [TREE NUT] Allergy Unknown ANAPHYLAXIS Verified 11/06/22 01:11 Active Medications: Current Medications Heparin Sodium (Porcine) (Heparin Sodium,Porcine 5,000 Unit/Ml Vial) 5,000 unit SUBCUT Q8H [facility] Vancomycin HCl 1,250 mg/ (Sodium Chloride) 250 mls @ 166.667 mls/hr IV Q24H [facility] Lactated Ringer's (Lr) 1,000 mls @ 999 mls/hr IV .Q1H1M [facility] Stop: 01/29/23 16:00 Albumin Human (Kedbumin 25 %) 100 mls @ 100 mls/hr IV ONCE ONE Stop: 01/29/23 16:07 Albumin Human (Kedbumin 25 %) 100 mls @ 100 mls/hr IV Q1H [facility] Stop: 01/29/23 17:29 Piperacillin Sod/Tazobactam (Sod 3.375 gm/ Sodium Chloride) 50 mls @ 100 mls/hr IV Q6H [facility] Pharmacy Consult (Consult Rx Vancomycin Dosing) 1 each MISCELLANE DAILY PRN PRN Reason: Consult order Home Medications Medication Instructions Recorded Confirmed Last Taken Type mirtazapine 15 mg tablet 15 mg PO BEDTIME 01/29/23 01/29/23 Unknown History Physical Exam Vital Signs: Vital Signs: Last Vital Signs Temp 98.0 F 01/29/23 12:30 Pulse 93 01/29/23 12:30 Resp 29 H 01/29/23 12:30 BP 99/42 L 01/29/23 13:18 Pulse Ox 92 01/29/23 12:30 O2 Del Method Room Air 01/29/23 12:30 BMI result Body Mass Index 27.5 Const: General: no acute distress and alert Nutritional Appearance: not obese Orientation/consciousness: Other orientation findings ( oriented) HEENT: Head: Yes atraumatic Eyes: General: appearance normal, both eyes and all related structures Sclerae: sclerae normal EOM: EOMs intact bilaterally Neck: Neck: Yes supple Lymphatic: no lymphadenopathy noted Resp: Effort & Inspection: normal respiratory effort and no use of accessory muscles Auscultation: clear to auscultation bilaterally Cardio: Rate: regular rate Rhythm: regular rhythm Heart sounds: no gallops, no murmurs and no rubs Skin: General skin exam: other ( warm) Extrem: General: No clubbing, No cyanosis and No edema Results Labs 01/29/23 07:22 01/29/23 07:22 Labs: Laboratory Results - last 24 hr 01/29/23 01/29/23 01/29/23 07:22 07:22 07:22 MCV 81.2 MCH 27.6 MCHC 34.0 RDW 14.6 Plt Count 65 L D MPV 12.8 H Immature Gran % (Auto) Cancelled Neut % (Auto) Cancelled Lymph % (Auto) Cancelled Amador % (Auto) Cancelled Eos % (Auto) Cancelled Baso % (Auto) Cancelled Lymph # (Auto) Cancelled Amador # (Auto) Cancelled Eos # (Auto) Cancelled Baso # (Auto) Cancelled Abs Immat Gran (auto) Cancelled Absolute Neuts (auto) Cancelled Absolute Nucleated RBC 0.000 Nucleated RBC % (auto) 0.0 Neutrophils % (Manual) 76 H Band Neutrophils % 17 H Lymphocytes % (Manual) 5 L Monocytes % (Manual) 2 Abs Neuts (Manual) 9.1 H Lymphocytes # (Manual) 0.5 L Monocytes # (Manual) 0.2 Toxic Vacuolation PRESENT Dohle Bodies PRESENT Platelet Estimate DECREASED Plt Morphology Comment NORMAL RBC Morphology NOTED Hypochromasia 1+ (5-14) Acanthocytes (Spur) 2+ (3-5) ESR 28 H PT INR APTT D-Dimer High Sensitivty Anion Gap 14 Estim Creat Clear Calc 56.5 Estimated GFR 46 Random Glucose 119 H Lactic Acid Lactic Acid F/U @ 2Hr Calcium 8.6 Magnesium 2.5 Total Bilirubin 0.8 Direct Bilirubin 0.4 AST 44 H ALT 23 Alkaline Phosphatase 193 H Total Creatine Kinase 17 L Troponin I High Sens C-Reactive Protein 31.87 H B-Natriuretic Peptide Total Protein 5.6 L Albumin 2.3 L Lipase 6 L Urine Color Urine Appearance Urine pH Ur Specific [place]ue Urine Protein Urine Glucose (UA) Urine Ketones Urine Blood Urine Nitrite Ur Leukocyte Esterase Urine RBC Urine WBC Ur Squamous Epith Cells Urine Bacteria Hyaline Casts Stool Occult Blood Salicylates Urine Opiates Screen Urine Fentanyl Screen Acetaminophen Ur Barbiturates Screen Ur Phencyclidine Scrn Ur Amphetamines Screen U Benzodiazepines Scrn Urine Cocaine Screen U Marijuana (THC) Screen COVID-19 (JOSELO) COVID-19 Clin Com 01/29/23 01/29/23 01/29/23 07:22 07:22 07:22 MCV MCH MCHC RDW Plt Count MPV Immature Gran % (Auto) Neut % (Auto) Lymph % (Auto) Amador % (Auto) Eos % (Auto) Baso % (Auto) Lymph # (Auto) Amador # (Auto) Eos # (Auto) Baso # (Auto) Abs Immat Gran (auto) Absolute Neuts (auto) Absolute Nucleated RBC Nucleated RBC % (auto) Neutrophils % (Manual) Band Neutrophils % Lymphocytes % (Manual) Monocytes % (Manual) Abs Neuts (Manual) Lymphocytes # (Manual) Monocytes # (Manual) Toxic Vacuolation Dohle Bodies Platelet Estimate Plt Morphology Comment RBC Morphology Hypochromasia Acanthocytes (Spur) ESR PT 14.7 H INR 1.3 H APTT 27.5 D-Dimer High Sensitivty 2980 Anion Gap Estim Creat Clear Calc Estimated GFR Random Glucose Lactic Acid 2.3 H* Lactic Acid F/U @ 2Hr Calcium Magnesium Total Bilirubin Direct Bilirubin AST ALT Alkaline Phosphatase Total Creatine Kinase Troponin I High Sens C-Reactive Protein B-Natriuretic Peptide Total Protein Albumin Lipase Urine Color Urine Appearance Urine pH Ur Specific [place] Urine Protein Urine Glucose (UA) Urine Ketones Urine Blood Urine Nitrite Ur Leukocyte Esterase Urine RBC Urine WBC Ur Squamous Epith Cells Urine Bacteria Hyaline Casts Stool Occult Blood Salicylates < 5.0 L Urine Opiates Screen Urine Fentanyl Screen Acetaminophen < 17 Ur Barbiturates Screen Ur Phencyclidine Scrn Ur Amphetamines Screen U Benzodiazepines Scrn Urine Cocaine Screen U Marijuana (THC) Screen COVID-19 (JOSELO) COVID-19 Clin Com 01/29/23 01/29/23 01/29/23 07:22 07:22 07:22 MCV MCH MCHC RDW Plt Count MPV Immature Gran % (Auto) Neut % (Auto) Lymph % (Auto) Amador % (Auto) Eos % (Auto) Baso % (Auto) Lymph # (Auto) Amador # (Auto) Eos # (Auto) Baso # (Auto) Abs Immat Gran (auto) Absolute Neuts (auto) Absolute Nucleated RBC Nucleated RBC % (auto) Neutrophils % (Manual) Band Neutrophils % Lymphocytes % (Manual) Monocytes % (Manual) Abs Neuts (Manual) Lymphocytes # (Manual) Monocytes # (Manual) Toxic Vacuolation Dohle Bodies Platelet Estimate Plt Morphology Comment RBC Morphology Hypochromasia Acanthocytes (Spur) ESR PT INR APTT D-Dimer High Sensitivty Anion Gap Estim Creat Clear Calc Estimated GFR Random Glucose Lactic Acid Lactic Acid F/U @ 2Hr Calcium Magnesium Total Bilirubin Direct Bilirubin AST ALT Alkaline Phosphatase Total Creatine Kinase Troponin I High Sens < 2.7 C-Reactive Protein B-Natriuretic Peptide 68 Total Protein Albumin Lipase Urine Color Urine Appearance Urine pH Ur Specific [place] Urine Protein Urine Glucose (UA) Urine Ketones Urine Blood Urine Nitrite Ur Leukocyte Esterase Urine RBC Urine WBC Ur Squamous Epith Cells Urine Bacteria Hyaline Casts Stool Occult Blood Salicylates Urine Opiates Screen Urine Fentanyl Screen Acetaminophen Ur Barbiturates Screen Ur Phencyclidine Scrn Ur Amphetamines Screen U Benzodiazepines Scrn Urine Cocaine Screen U Marijuana (THC) Screen COVID-19 (JOSELO) Negative COVID-19 Clin Com See Note 01/29/23 01/29/23 01/29/23 08:29 08:41 08:41 MCV MCH MCHC RDW Plt Count MPV Immature Gran % (Auto) Neut % (Auto) Lymph % (Auto) Amador % (Auto) Eos % (Auto) Baso % (Auto) Lymph # (Auto) Amador # (Auto) Eos # (Auto) Baso # (Auto) Abs Immat Gran (auto) Absolute Neuts (auto) Absolute Nucleated RBC Nucleated RBC % (auto) Neutrophils % (Manual) Band Neutrophils % Lymphocytes % (Manual) Monocytes % (Manual) Abs Neuts (Manual) Lymphocytes # (Manual) Monocytes # (Manual) Toxic Vacuolation Dohle Bodies Platelet Estimate Plt Morphology Comment RBC Morphology Hypochromasia Acanthocytes (Spur) ESR PT INR APTT D-Dimer High Sensitivty Anion Gap Estim Creat Clear Calc Estimated GFR Random Glucose Lactic Acid Lactic Acid F/U @ 2Hr Calcium Magnesium Total Bilirubin Direct Bilirubin AST ALT Alkaline Phosphatase Total Creatine Kinase Troponin I High Sens C-Reactive Protein B-Natriuretic Peptide Total Protein Albumin Lipase Urine Color Yellow Urine Appearance Cloudy Urine pH 5.5 Ur Specific Donahue 1.015 Urine Protein 30 (1+) H Urine Glucose (UA) Negative Urine Ketones Negative Urine Blood Negative Urine Nitrite Negative Ur Leukocyte Esterase Small (1+) H Urine RBC 0-2 Urine WBC 11-20 H Ur Squamous Epith Cells 6-10 Urine Bacteria None Seen Hyaline Casts 6-10 Stool Occult Blood NEGATIVE Salicylates Urine Opiates Screen POSITIVE H Urine Fentanyl Screen POSITIVE H Acetaminophen Ur Barbiturates Screen Not Detected Ur Phencyclidine Scrn Not Detected Ur Amphetamines Screen Not Detected U Benzodiazepines Scrn Not Detected Urine Cocaine Screen POSITIVE H U Marijuana (THC) Screen Not Detected COVID-19 (JOSELO) COVID-19 Clin Com 01/29/23 09:53 MCV MCH MCHC RDW Plt Count MPV Immature Gran % (Auto) Neut % (Auto) Lymph % (Auto) Amador % (Auto) Eos % (Auto) Baso % (Auto) Lymph # (Auto) Amador # (Auto) Eos # (Auto) Baso # (Auto) Abs Immat Gran (auto) Absolute Neuts (auto) Absolute Nucleated RBC Nucleated RBC % (auto) Neutrophils % (Manual) Band Neutrophils % Lymphocytes % (Manual) Monocytes % (Manual) Abs Neuts (Manual) Lymphocytes # (Manual) Monocytes # (Manual) Toxic Vacuolation Dohle Bodies Platelet Estimate Plt Morphology Comment RBC Morphology Hypochromasia Acanthocytes (Spur) ESR PT INR APTT D-Dimer High Sensitivty Anion Gap Estim Creat Clear Calc Estimated GFR Random Glucose Lactic Acid Lactic Acid F/U @ 2Hr 2.2 H* Calcium Magnesium Total Bilirubin Direct Bilirubin AST ALT Alkaline Phosphatase Total Creatine Kinase Troponin I High Sens C-Reactive Protein B-Natriuretic Peptide Total Protein Albumin Lipase Urine Color Urine Appearance Urine pH Ur Specific [place] Urine Protein Urine Glucose (UA) Urine Ketones Urine Blood Urine Nitrite Ur Leukocyte Esterase Urine RBC Urine WBC Ur Squamous Epith Cells Urine Bacteria Hyaline Casts Stool Occult Blood Salicylates Urine Opiates Screen Urine Fentanyl Screen Acetaminophen Ur Barbiturates Screen Ur Phencyclidine Scrn Ur Amphetamines Screen U Benzodiazepines Scrn Urine Cocaine Screen U Marijuana (THC) Screen COVID-19 (JOSELO) COVID-19 Clin Com Imaging Radiologist's Impressions: Impressions Chest X-Ray 01/29/23 07:47 IMPRESSION: Multifocal regions of disease which may be related to multifocal pneumonitis. Abdomen/Pelvis CT 01/29/23 08:33 IMPRESSION: 1. Appendix not clearly visualized. However, no inflammatory changes in the right lower quadrant. 2. Numerous patchy and nodular opacities noted throughout the partially visualized right and left lung. Possible cavitation of one of the small left basilar nodular opacities. The appearance is nonspecific. This most likely reflect an infectious or inflammatory process. The overall appearance raises the question of septic emboli neoplasm cannot be excluded but is thought to be much less likely. Fleischner guidelines were followed. Pulmonary Perfusion Imaging 01/29/23 11:00 IMPRESSION: Matched perfusion and chest x-ray findings. Findings are indeterminate. However there are peripheral filling defects in both superior segment lower lobe. Findings are suspicious for PE. Assessment and Plan (1) Staphylococcus aureus bacteremia: Status: Acute (2) Sepsis: Status: Acute (3) Polysubstance abuse: Status: Acute (4) MEHDI (acute kidney injury): Status: Acute Plan Assessment: 27-year-old gentleman admitted with sepsis likely secondary to bacteremia with possible endocarditis further complicated by polysubstance abuse and acute renal failure. Plan: Neuro: Polysubstance abuse and withdrawal. Cardiac: Possible endocarditis. 2D echo is ordered. Pulmonary: possible septic emboli. Will obtain CT chest angiogram when renal function improves. Renal: Acute renal failure secondary to sepsis. Non oliguric. Continue to monitor renal indices and urine output. Endo: No acute issues. GI: No acute issues. ID: Sepsis, Gram-positive bacteremia, possible endocarditis. Cultures are pending. Continue broad-spectrum antibiotics. Heme/Onc: No acute issues. Psych: No acute issues. Miscellaneous: No acute issues. Prophylaxis: Heparin Diet: nothing by mouth Critical care time spent: 60 minutes Time Spent With Patient Time: Total time managing care of this patient today ____ minutes.
--- NOTE | 2023-01-29 15:29 | PM.IMHP ---
History of Present Illness Date of Service: 01/29/23 Attending physician on admission: Kimberly Ortiz Chief Complaint: body aches, fevers, sob 27 year old male with history of IVDA, polysubstance abuse, depression, and hx hepatitis C treated 4 years ago per patient presets to the ED for evaluation of 8 days of worsening body pain and subjective fevers. He states pain started with swelling in the right ankle and ascended. Now also present throughout the right side. Causes difficulty with weight bearing/ambulation. He is also reporting pleuritic left sided chest pain with shortness of breath that started about 3 days ago. His last IV heroin use was about 12 hours ago. States he follows with [facility] and is supposed to be on 40mg methadone daily, previously 80mg. On arrival, pt afebrile, developed hypotension. Has received 3L IVF and albumin x2. Patient remained hypotensive to 86/44. [facility] Social History Smoked in Last 30 Days: Yes Use of substances other than those prescribed or required for medical reasons: Yes Substance Use Type: IV Drugs Substance Use Frequency: Chronic Longstanding Last Used Substance: Just Prior to Admission Advance Directives: No Advance Directives Information Provided: Yes Meds Allergies Allergy/AdvReac Type Severity Reaction Status Date / Time tree nut [TREE NUT] Allergy Unknown ANAPHYLAXIS Verified 11/06/22 01:11 Active Medications: Current Medications Heparin Sodium (Porcine) (Heparin Sodium,Porcine 5,000 Unit/Ml Vial) 5,000 unit SUBCUT Q8H [facility] Vancomycin HCl 1,250 mg/ (Sodium Chloride) 250 mls @ 166.667 mls/hr IV Q24H [facility] Lactated Ringer's (Lr) 1,000 mls @ 999 mls/hr IV .Q1H1M [facility] Stop: 01/29/23 16:00 Albumin Human (Kedbumin 25 %) 100 mls @ 100 mls/hr IV ONCE ONE Stop: 01/29/23 16:07 Albumin Human (Kedbumin 25 %) 100 mls @ 100 mls/hr IV Q1H [facility] Stop: 01/29/23 17:29 Piperacillin Sod/Tazobactam (Sod 3.375 gm/ Sodium Chloride) 50 mls @ 100 mls/hr IV Q6H [facility] Pharmacy Consult (Consult Rx Vancomycin Dosing) 1 each MISCELLANE DAILY PRN PRN Reason: Consult order Home Medications Medication Instructions Recorded Confirmed Last Taken Type mirtazapine 15 mg tablet 15 mg PO BEDTIME 01/29/23 01/29/23 Unknown History Physical Exam Vital Signs and Narrative: Vital Signs: Last Vital Signs Temp 98.0 F 01/29/23 12:30 Pulse 93 01/29/23 12:30 Resp 29 H 01/29/23 12:30 BP 99/42 L 01/29/23 13:18 Pulse Ox 92 01/29/23 12:30 O2 Del Method Room Air 01/29/23 12:30 BMI result Body Mass Index 27.5 Results Labs 01/29/23 07:22 01/29/23 07:22 Labs: Laboratory Results - last 24 hr 01/29/23 01/29/23 01/29/23 07:22 07:22 07:22 MCV 81.2 MCH 27.6 MCHC 34.0 RDW 14.6 Plt Count 65 L D MPV 12.8 H Immature Gran % (Auto) Cancelled Neut % (Auto) Cancelled Lymph % (Auto) Cancelled [place] % (Auto) Cancelled Eos % (Auto) Cancelled Baso % (Auto) Cancelled Lymph # (Auto) Cancelled [place] # (Auto) Cancelled Eos # (Auto) Cancelled Baso # (Auto) Cancelled Abs Immat Gran (auto) Cancelled Absolute Neuts (auto) Cancelled Absolute Nucleated RBC 0.000 Nucleated RBC % (auto) 0.0 Neutrophils % (Manual) 76 H Band Neutrophils % 17 H Lymphocytes % (Manual) 5 L Monocytes % (Manual) 2 Abs Neuts (Manual) 9.1 H Lymphocytes # (Manual) 0.5 L Monocytes # (Manual) 0.2 Toxic Vacuolation PRESENT Dohle Bodies PRESENT Platelet Estimate DECREASED Plt Morphology Comment NORMAL RBC Morphology NOTED Hypochromasia 1+ (5-14) Acanthocytes (Spur) 2+ (3-5) ESR 28 H PT INR APTT D-Dimer High Sensitivty Anion Gap 14 Estim Creat Clear Calc 56.5 Estimated GFR 46 Random Glucose 119 H Lactic Acid Lactic Acid F/U @ 2Hr Calcium 8.6 Magnesium 2.5 Total Bilirubin 0.8 Direct Bilirubin 0.4 AST 44 H ALT 23 Alkaline Phosphatase 193 H Total Creatine Kinase 17 L Troponin I High Sens C-Reactive Protein 31.87 H B-Natriuretic Peptide Total Protein 5.6 L Albumin 2.3 L Lipase 6 L Urine Color Urine Appearance Urine pH Ur Specific [place] Urine Protein Urine Glucose (UA) Urine Ketones Urine Blood Urine Nitrite Ur Leukocyte Esterase Urine RBC Urine WBC Ur Squamous Epith Cells Urine Bacteria Hyaline Casts Stool Occult Blood Salicylates Urine Opiates Screen Urine Fentanyl Screen Acetaminophen Ur Barbiturates Screen Ur Phencyclidine Scrn Ur Amphetamines Screen U Benzodiazepines Scrn Urine Cocaine Screen U Marijuana (THC) Screen COVID-19 (JOSELO) COVID-19 Clin Com 01/29/23 01/29/23 01/29/23 07:22 07:22 07:22 MCV MCH MCHC RDW Plt Count MPV Immature Gran % (Auto) Neut % (Auto) Lymph % (Auto) [place] % (Auto) Eos % (Auto) Baso % (Auto) Lymph # (Auto) [place] # (Auto) Eos # (Auto) Baso # (Auto) Abs Immat Gran (auto) Absolute Neuts (auto) Absolute Nucleated RBC Nucleated RBC % (auto) Neutrophils % (Manual) Band Neutrophils % Lymphocytes % (Manual) Monocytes % (Manual) Abs Neuts (Manual) Lymphocytes # (Manual) Monocytes # (Manual) Toxic Vacuolation Dohle Bodies Platelet Estimate Plt Morphology Comment RBC Morphology Hypochromasia Acanthocytes (Spur) ESR PT 14.7 H INR 1.3 H APTT 27.5 D-Dimer High Sensitivty 2980 Anion Gap Estim Creat Clear Calc Estimated GFR Random Glucose Lactic Acid 2.3 H* Lactic Acid F/U @ 2Hr Calcium Magnesium Total Bilirubin Direct Bilirubin AST ALT Alkaline Phosphatase Total Creatine Kinase Troponin I High Sens C-Reactive Protein B-Natriuretic Peptide Total Protein Albumin Lipase Urine Color Urine Appearance Urine pH Ur Specific [place] Urine Protein Urine Glucose (UA) Urine Ketones Urine Blood Urine Nitrite Ur Leukocyte Esterase Urine RBC Urine WBC Ur Squamous Epith Cells Urine Bacteria Hyaline Casts Stool Occult Blood Salicylates < 5.0 L Urine Opiates Screen Urine Fentanyl Screen Acetaminophen < 17 Ur Barbiturates Screen Ur Phencyclidine Scrn Ur Amphetamines Screen U Benzodiazepines Scrn Urine Cocaine Screen U Marijuana (THC) Screen COVID-19 (JOSELO) COVID-19 Clin Com 01/29/23 01/29/23 01/29/23 07:22 07:22 07:22 MCV MCH MCHC RDW Plt Count MPV Immature Gran % (Auto) Neut % (Auto) Lymph % (Auto) [place] % (Auto) Eos % (Auto) Baso % (Auto) Lymph # (Auto) [place] # (Auto) Eos # (Auto) Baso # (Auto) Abs Immat Gran (auto) Absolute Neuts (auto) Absolute Nucleated RBC Nucleated RBC % (auto) Neutrophils % (Manual) Band Neutrophils % Lymphocytes % (Manual) Monocytes % (Manual) Abs Neuts (Manual) Lymphocytes # (Manual) Monocytes # (Manual) Toxic Vacuolation Dohle Bodies Platelet Estimate Plt Morphology Comment RBC Morphology Hypochromasia Acanthocytes (Spur) ESR PT INR APTT D-Dimer High Sensitivty Anion Gap Estim Creat Clear Calc Estimated GFR Random Glucose Lactic Acid Lactic Acid F/U @ 2Hr Calcium Magnesium Total Bilirubin Direct Bilirubin AST ALT Alkaline Phosphatase Total Creatine Kinase Troponin I High Sens < 2.7 C-Reactive Protein B-Natriuretic Peptide 68 Total Protein Albumin Lipase Urine Color Urine Appearance Urine pH Ur Specific [place] Urine Protein Urine Glucose (UA) Urine Ketones Urine Blood Urine Nitrite Ur Leukocyte Esterase Urine RBC Urine WBC Ur Squamous Epith Cells Urine Bacteria Hyaline Casts Stool Occult Blood Salicylates Urine Opiates Screen Urine Fentanyl Screen Acetaminophen Ur Barbiturates Screen Ur Phencyclidine Scrn Ur Amphetamines Screen U Benzodiazepines Scrn Urine Cocaine Screen U Marijuana (THC) Screen COVID-19 (JOSELO) Negative COVID-19 Clin Com See Note 01/29/23 01/29/23 01/29/23 08:29 08:41 08:41 MCV MCH MCHC RDW Plt Count MPV Immature Gran % (Auto) Neut % (Auto) Lymph % (Auto) [place] % (Auto) Eos % (Auto) Baso % (Auto) Lymph # (Auto) [place] # (Auto) Eos # (Auto) Baso # (Auto) Abs Immat Gran (auto) Absolute Neuts (auto) Absolute Nucleated RBC Nucleated RBC % (auto) Neutrophils % (Manual) Band Neutrophils % Lymphocytes % (Manual) Monocytes % (Manual) Abs Neuts (Manual) Lymphocytes # (Manual) Monocytes # (Manual) Toxic Vacuolation Dohle Bodies Platelet Estimate Plt Morphology Comment RBC Morphology Hypochromasia Acanthocytes (Spur) ESR PT INR APTT D-Dimer High Sensitivty Anion Gap Estim Creat Clear Calc Estimated GFR Random Glucose Lactic Acid Lactic Acid F/U @ 2Hr Calcium Magnesium Total Bilirubin Direct Bilirubin AST ALT Alkaline Phosphatase Total Creatine Kinase Troponin I High Sens C-Reactive Protein B-Natriuretic Peptide Total Protein Albumin Lipase Urine Color Yellow Urine Appearance Cloudy Urine pH 5.5 Ur Specific [place] 1.015 Urine Protein 30 (1+) H Urine Glucose (UA) Negative Urine Ketones Negative Urine Blood Negative Urine Nitrite Negative Ur Leukocyte Esterase Small (1+) H Urine RBC 0-2 Urine WBC 11-20 H Ur Squamous Epith Cells 6-10 Urine Bacteria None Seen Hyaline Casts 6-10 Stool Occult Blood NEGATIVE Salicylates Urine Opiates Screen POSITIVE H Urine Fentanyl Screen POSITIVE H Acetaminophen Ur Barbiturates Screen Not Detected Ur Phencyclidine Scrn Not Detected Ur Amphetamines Screen Not Detected U Benzodiazepines Scrn Not Detected Urine Cocaine Screen POSITIVE H U Marijuana (THC) Screen Not Detected COVID-19 (JOSELO) COVID-19 [employer] Com 01/29/23 09:53 MCV MCH MCHC RDW Plt Count MPV Immature Gran % (Auto) Neut % (Auto) Lymph % (Auto) [place] % (Auto) Eos % (Auto) Baso % (Auto) Lymph # (Auto) [place] # (Auto) Eos # (Auto) Baso # (Auto) Abs Immat Gran (auto) Absolute Neuts (auto) Absolute Nucleated RBC Nucleated RBC % (auto) Neutrophils % (Manual) Band Neutrophils % Lymphocytes % (Manual) Monocytes % (Manual) Abs Neuts (Manual) Lymphocytes # (Manual) Monocytes # (Manual) Toxic Vacuolation Dohle Bodies Platelet Estimate Plt Morphology Comment RBC Morphology Hypochromasia Acanthocytes (Spur) ESR PT INR APTT D-Dimer High Sensitivty Anion Gap Estim Creat Clear Calc Estimated GFR Random Glucose Lactic Acid Lactic Acid F/U @ 2Hr 2.2 H* Calcium Magnesium Total Bilirubin Direct Bilirubin AST ALT Alkaline Phosphatase Total Creatine Kinase Troponin I High Sens C-Reactive Protein B-Natriuretic Peptide Total Protein Albumin Lipase Urine Color Urine Appearance Urine pH Ur Specific [place] Urine Protein Urine Glucose (UA) Urine Ketones Urine Blood Urine Nitrite Ur Leukocyte Esterase Urine RBC Urine WBC Ur Squamous Epith Cells Urine Bacteria Hyaline Casts Stool Occult Blood Salicylates Urine Opiates Screen Urine Fentanyl Screen Acetaminophen Ur Barbiturates Screen Ur Phencyclidine Scrn Ur Amphetamines Screen U Benzodiazepines Scrn Urine Cocaine Screen U Marijuana (THC) Screen COVID-19 (JOSELO) COVID-19 Clin Com Imaging Radiologist's Impressions: Impressions Chest X-Ray 01/29/23 07:47 IMPRESSION: Multifocal regions of disease which may be related to multifocal pneumonitis. Abdomen/Pelvis CT 01/29/23 08:33 IMPRESSION: 1. Appendix not clearly visualized. However, no inflammatory changes in the right lower quadrant. 2. Numerous patchy and nodular opacities noted throughout the partially visualized right and left lung. Possible cavitation of one of the small left basilar nodular opacities. The appearance is nonspecific. This most likely reflect an infectious or inflammatory process. The overall appearance raises the question of septic emboli neoplasm cannot be excluded but is thought to be much less likely. Fleischner guidelines were followed. Pulmonary Perfusion Imaging 01/29/23 11:00 IMPRESSION: Matched perfusion and chest x-ray findings. Findings are indeterminate. However there are peripheral filling defects in both superior segment lower lobe. Findings are suspicious for PE. Assessment and Plan Time Spent With Patient Time: Total time managing care of this patient today ____ minutes. Quality VTE VTE Risk Level:: Medical - moderate - high VTE Device Contraindication: N/A - Device Ordered VTE Drug Contraindication: N/A - Med Ordered
[2023-01-29] MEDS: Albumin Human 25 % 100 ML IV ×3 (15:40→18:11)
[2023-01-29] MEDS: Lactated Ringers 1,000 ML 999 ML IV (15:48)
[2023-01-29] MEDS: Morphine Sulfate 2 MG/ML CARTRIDGE IVPUSH (16:11)
--- NOTE | 2023-01-29 17:10 | PC.NURSE ---
Around 1500 hospitalist came to admit patient, BP was back in sys range of 80's, romario range of 30's. ICU attending notified, pt changed to CU admission. ICU ordered LR bolus, with another 2 bottles of albumin, bolus hung, and first bottle hung. Pt continues to ask for pain medication, methadone and morphine ordered, Morphine given, methadone held until BP more stable, ICU nurse in agreement to hold until pt in ICU. Pt given education on why we were holding off, pt not fully in agreement but understands. Bed available in ICU, RN/yonatan transferred pt to unit. Pt able to verbalize needs at this time.
[2023-01-29] MEDS: Heparin Sodium,Porcine 5,000 UNIT/ML VIAL 5000 UNIT SUBCUT ×2 (17:22→21:06)
[2023-01-30] VITALS (27 sets, daily range): BP systolic 89–116; BP diastolic 44–75; PULSE 77–108; RESP 21–51; TEMP 36.7–38.8; O2SAT 91–98; BMI 26.4; BMI 21.8
--- NOTE | 2023-01-30 02:31 | PC.NURSE ---
Addendum entered by Baldev Garcia RN 01/30/23 06:49: Pt continues to be restless, moaning, and requiring frequent redirection. CASCADE OPERATOR aware- orders for Precedex gtt were placed. Precedex gtt started at 0627 per protocol Addendum entered by Ayana Hernandez RN 01/30/23 04:02: Pt incessantly moaning, restless, inconsolable, ?withdrawing. CASCADE OPERATOR [place] aware- orders for Ativan 2 mg IVP and Benadryl 50 mg IVP, given with good effect, resting quietly at this time. Original Note: Pt admitted to ICU on previous shift at approx 1730. Upon initial assessment at 1900- pt A&Ox4, needing frequent reassurance, tearful at times but cooperative. Weakly HICKEY, c/o generalized edema, pain and stiff extremities. Methadone and lidocaine patch ordered and given per SEP. C/o panic attack , given Ativan 1 mg IVP x2 with some effect. Afebrile. NSR/ST on tele, HR 90-100s. SBP > 90, MAP > 65. Oxygen titrated to 3L NC to maintain SpO2 > 92%, c/o difficulty breathing but noted to be hyperventilating. C/o nausea but no emesis. Condom cath in place, UOP as charted. No BM. Skin overall intact- petechiae to BLE, small blister to buttock, numerous scars noted. Repositioned in bed as tolerated. Pt aware of plan of care. Call duke in reach, bed locked in lowest position.
[2023-01-30 05:16] LABS: Hematocrit 31.4 % (42.0-52.0); Hemoglobin 10.6 g/dl (14.0-18.0); Mean Corpuscular HGB Conc 33.8 g/dl (31.0-36.0); Mean Corpuscular Hemoglobin 27.5 pg (27.0-33.0); Mean Corpuscular Volume 81.6 fL (80.0-98.0); Mean Platelet Volume 12.9 fL (9.4-12.4); Platelet Count 52 X10*3/uL (160-400); Red Blood Count 3.85 X10*6/uL (4.60-5.80); White Blood Count 12.2 X10*3/uL (4.8-10.8)
[2023-01-30 05:39] LABS: Alanine Aminotransferase 23 U/L (0-40); Alkaline Phosphatase 173 U/L (39-117); Anion Gap 15 (12-20); Aspartate Amino Transferase 37 U/L (5-37); Bilirubin Total 1.7 mg/dL (0.0-1.0); Blood Urea Nitrogen 26 mg/dL (9-16); Calcium 9.1 mg/dL (8.4-10.2); Carbon Dioxide 26 mmol/L (22-29); Chloride 105 mmol/L (96-108); Estimated Glomerular Filt Rate > 60; Glucose Random 91 mg/dL (60-115); Magnesium 2.2 mg/dL (1.6-2.6); Phosphorus 3.1 mg/dL (2.7-4.5); Potassium 3.9 mmol/L (3.3-5.1); Sodium 142 mmol/L (135-145); Total Protein 5.6 g/dL (6.5-8.0)
[2023-01-30 05:43] LABS: Venous Blood Gas Refer to POC result
[2023-01-30 05:50] LABS: Band Neutrophils Percent 10 % (3-5); Dohle Bodies PRESENT; Lymphocytes Absolute Manual 0.6 X10*3/uL (1.2-4.9); Lymphocytes Percent Manual 5 % (20-40); Monocytes Absolute Manual 0.7 X10*3/uL (0.1-1.2); Monocytes Percent Manual 6 % (2-11); Neutrophils Absolute Manual 10.9 X10*3/uL (2.0-8.3); Neutrophils Percent Manual 79 % (45-73); Platelet Estimate DECREASED (NORMAL); Platelet Morphology Comment NORMAL; RBC Morphology NOTED
[2023-01-30 05:51] LABS: Burr Cells 3+ (>5) /OIF; Smudge Cells PRESENT; Toxic Vacuolation PRESENT
--- NOTE | 2023-01-30 07:02 | HE.PHANOTE ---
RE JOSHUAO SERUM CREATININE IMPROVING. CHANGED FROM 1250MG Q24H TO 1000 Q12H KRYSTLE
[2023-01-30] MEDS: Heparin Sodium,Porcine 5,000 UNIT/ML VIAL 5000 UNIT SUBCUT ×2 (07:55→15:50)
--- NOTE | 2023-01-30 09:01 | PM.CCPN ---
Subjective Subjective Date of Service: 01/30/23 Interval History: 27-year-old gentleman admitted on 01/29/2023 with initial complaints of malaise and fever. On ER evaluation hypertensive with concern for sepsis with suboptimal response to initial IV fluid resuscitation requiring colloidal support. Also is polysubstance abuse/withdrawal. Admitted to intensive care unit and started broad-spectrum antibiotics. overnight with worsening withdrawal symptoms requiring initiation of Precedex drip. Critical Care Time (minutes): 45 Physical Exam Vital Signs: Vital Signs: Last Vital Signs Temp 98.5 F 01/30/23 08:00 Pulse 79 01/30/23 08:00 Resp 33 H 01/30/23 08:00 BP 89/44 L 01/30/23 08:00 Pulse Ox 94 01/30/23 08:00 O2 Del Method Nasal Cannula 01/30/23 08:00 O2 Flow Rate 3 01/30/23 08:00 BMI result Body Mass Index 26.4 Const: General: no acute distress and lethargic ( Arousable and answers appropriately) Orientation/consciousness: lethargic ( Arousable and answers appropriately) Eyes: Sclerae: sclerae normal EOM: EOMs intact bilaterally Neck: Neck: Yes no lymphadenopathy, Yes trachea midline and Yes supple Resp: Effort & Inspection: normal respiratory effort and no respiratory distress Auscultation: clear to auscultation bilaterally Cardio: Rate: regular rate Rhythm: regular rhythm Heart sounds: no gallops, no murmurs and no rubs GI: Palpation (GI): Soft to palpation and Other GI palpation findings present ( Nontender) Auscultation: normal bowel sounds Extrem: General: Yes no pedal edema, No clubbing and No cyanosis Objective Data Labs 01/30/23 05:09 01/30/23 05:09 Labs: Laboratory Results - last 24 hr 01/29/23 01/29/23 01/29/23 08:29 08:41 08:41 WBC RBC Hgb Hct MCV MCH MCHC RDW Plt Count MPV Immature Gran % (Auto) Neut % (Auto) Lymph % (Auto) [place] % (Auto) Eos % (Auto) Baso % (Auto) Lymph # (Auto) [place] # (Auto) Eos # (Auto) Baso # (Auto) Abs Immat Gran (auto) Absolute Neuts (auto) Absolute Nucleated RBC Nucleated RBC % (auto) Neutrophils % (Manual) Band Neutrophils % Lymphocytes % (Manual) Monocytes % (Manual) Eosinophils % (Manual) Abs Neuts (Manual) Lymphocytes # (Manual) Monocytes # (Manual) Eosinophils # (Manual) Smudge Cells Toxic Vacuolation Dohle Bodies Platelet Estimate Large Platelets Plt Morphology Comment RBC Morphology Laura Cells VBG pH VBG pCO2 VBG pO2 VBG HCO3 VBG O2 Saturation VBG Base Excess Sodium Potassium Chloride Carbon Dioxide Anion Gap BUN Creatinine Estim Creat Clear Calc Estimated GFR Random Glucose Lactic Acid F/U @ 2Hr Lactic Acid F/U @ 4Hr Calcium Phosphorus Magnesium Total Bilirubin AST ALT Alkaline Phosphatase Total Protein Albumin Urine Color Yellow Urine Appearance Cloudy Urine pH 5.5 Ur Specific [place] 1.015 Urine Protein 30 (1+) H Urine Glucose (UA) Negative Urine Ketones Negative Urine Blood Negative Urine Nitrite Negative Ur Leukocyte Esterase Small (1+) H Urine RBC 0-2 Urine WBC 11-20 H Ur Squamous Epith Cells 6-10 Urine Bacteria None Seen Hyaline Casts 6-10 Stool Occult Blood NEGATIVE Urine Opiates Screen POSITIVE H Urine Fentanyl Screen POSITIVE H Ur Barbiturates Screen Not Detected Ur Phencyclidine Scrn Not Detected Ur Amphetamines Screen Not Detected U Benzodiazepines Scrn Not Detected Urine Cocaine Screen POSITIVE H U Marijuana (THC) Screen Not Detected 01/29/23 01/29/23 01/29/23 09:53 16:16 16:16 WBC 11.3 H RBC 3.34 L Hgb 9.3 L Hct 27.3 L MCV 81.7 MCH 27.8 MCHC 34.1 RDW 14.6 Plt Count 44 L D MPV 12.3 Immature Gran % (Auto) Cancelled Neut % (Auto) Cancelled Lymph % (Auto) Cancelled [place] % (Auto) Cancelled Eos % (Auto) Cancelled Baso % (Auto) Cancelled Lymph # (Auto) Cancelled [place] # (Auto) Cancelled Eos # (Auto) Cancelled Baso # (Auto) Cancelled Abs Immat Gran (auto) Cancelled Absolute Neuts (auto) Cancelled Absolute Nucleated RBC 0.000 Nucleated RBC % (auto) 0.0 Neutrophils % (Manual) 90 H Band Neutrophils % 3 Lymphocytes % (Manual) 2 L Monocytes % (Manual) 4 Eosinophils % (Manual) 1 Abs Neuts (Manual) 10.5 H Lymphocytes # (Manual) 0.2 L Monocytes # (Manual) 0.5 Eosinophils # (Manual) 0.1 Smudge Cells Toxic Vacuolation PRESENT Dohle Bodies Platelet Estimate DECREASED Large Platelets PRESENT Plt Morphology Comment NOTED RBC Morphology NOTED Laura Cells 3+ (>5) VBG pH VBG pCO2 VBG pO2 VBG HCO3 VBG O2 Saturation VBG Base Excess Sodium Potassium Chloride Carbon Dioxide Anion Gap BUN Creatinine Estim Creat Clear Calc Estimated GFR Random Glucose Lactic Acid F/U @ 2Hr 2.2 H* Lactic Acid F/U @ 4Hr 2.1 H* Calcium Phosphorus Magnesium Total Bilirubin AST ALT Alkaline Phosphatase Total Protein Albumin Urine Color Urine Appearance Urine pH Ur Specific [place] Urine Protein Urine Glucose (UA) Urine Ketones Urine Blood Urine Nitrite Ur Leukocyte Esterase Urine RBC Urine WBC Ur Squamous Epith Cells Urine Bacteria Hyaline Casts Stool Occult Blood Urine Opiates Screen Urine Fentanyl Screen Ur Barbiturates Screen Ur Phencyclidine Scrn Ur Amphetamines Screen U Benzodiazepines Scrn Urine Cocaine Screen U Marijuana (THC) Screen 01/29/23 01/30/23 01/30/23 16:16 05:06 05:09 WBC RBC Hgb Hct MCV MCH MCHC RDW Plt Count MPV Immature Gran % (Auto) Neut % (Auto) Lymph % (Auto) [place] % (Auto) Eos % (Auto) Baso % (Auto) Lymph # (Auto) [place] # (Auto) Eos # (Auto) Baso # (Auto) Abs Immat Gran (auto) Absolute Neuts (auto) Absolute Nucleated RBC Nucleated RBC % (auto) Neutrophils % (Manual) Band Neutrophils % Lymphocytes % (Manual) Monocytes % (Manual) Eosinophils % (Manual) Abs Neuts (Manual) Lymphocytes # (Manual) Monocytes # (Manual) Eosinophils # (Manual) Smudge Cells Toxic Vacuolation Dohle Bodies Platelet Estimate Large Platelets Plt Morphology Comment RBC Morphology Laura Cells VBG pH 7.47 H VBG pCO2 41 VBG pO2 37 VBG HCO3 30 H VBG O2 Saturation 62.0 VBG Base Excess 5.9 Sodium 138 142 Potassium 3.8 3.9 Chloride 106 105 Carbon Dioxide 22 26 Anion Gap 14 15 BUN 38 H 26 H Creatinine 1.13 0.96 Estim Creat Clear Calc 88.0 95.0 Estimated GFR > 60 > 60 Random Glucose 88 91 Lactic Acid F/U @ 2Hr Lactic Acid F/U @ 4Hr Calcium 8.3 L 9.1 D Phosphorus 3.8 3.1 Magnesium 2.3 2.2 Total Bilirubin 1.7 H AST 37 ALT 23 Alkaline Phosphatase 173 H Total Protein 5.6 L Albumin 3.0 L Urine Color Urine Appearance Urine pH Ur Specific [place] Urine Protein Urine Glucose (UA) Urine Ketones Urine Blood Urine Nitrite Ur Leukocyte Esterase Urine RBC Urine WBC Ur Squamous Epith Cells Urine Bacteria Hyaline Casts Stool Occult Blood Urine Opiates Screen Urine Fentanyl Screen Ur Barbiturates Screen Ur Phencyclidine Scrn Ur Amphetamines Screen U Benzodiazepines Scrn Urine Cocaine Screen U Marijuana (THC) Screen 01/30/23 05:09 WBC 12.2 H RBC 3.85 L Hgb 10.6 L Hct 31.4 L MCV 81.6 MCH 27.5 MCHC 33.8 RDW 15.0 Plt Count 52 L MPV 12.9 H Immature Gran % (Auto) Cancelled Neut % (Auto) Cancelled Lymph % (Auto) Cancelled [place] % (Auto) Cancelled Eos % (Auto) Cancelled Baso % (Auto) Cancelled Lymph # (Auto) Cancelled [place] # (Auto) Cancelled Eos # (Auto) Cancelled Baso # (Auto) Cancelled Abs Immat Gran (auto) Cancelled Absolute Neuts (auto) Cancelled Absolute Nucleated RBC 0.000 Nucleated RBC % (auto) 0.0 Neutrophils % (Manual) 79 H Band Neutrophils % 10 H Lymphocytes % (Manual) 5 L Monocytes % (Manual) 6 Eosinophils % (Manual) Abs Neuts (Manual) 10.9 H Lymphocytes # (Manual) 0.6 L Monocytes # (Manual) 0.7 Eosinophils # (Manual) Smudge Cells PRESENT Toxic Vacuolation PRESENT Dohle Bodies PRESENT Platelet Estimate DECREASED Large Platelets Plt Morphology Comment NORMAL RBC Morphology NOTED Laura Cells 3+ (>5) VBG pH VBG pCO2 VBG pO2 VBG HCO3 VBG O2 Saturation VBG Base Excess Sodium Potassium Chloride Carbon Dioxide Anion Gap BUN Creatinine Estim Creat Clear Calc Estimated GFR Random Glucose Lactic Acid F/U @ 2Hr Lactic Acid F/U @ 4Hr Calcium Phosphorus Magnesium Total Bilirubin AST ALT Alkaline Phosphatase Total Protein Albumin Urine Color Urine Appearance Urine pH Ur Specific [place] Urine Protein Urine Glucose (UA) Urine Ketones Urine Blood Urine Nitrite Ur Leukocyte Esterase Urine RBC Urine WBC Ur Squamous Epith Cells Urine Bacteria Hyaline Casts Stool Occult Blood Urine Opiates Screen Urine Fentanyl Screen Ur Barbiturates Screen Ur Phencyclidine Scrn Ur Amphetamines Screen U Benzodiazepines Scrn Urine Cocaine Screen U Marijuana (THC) Screen Microbiology Microbiology Results: Microbiology 01/29/23 07:32 Blood - Venous Blood Culture - Preliminary Staphylococcus aureus 01/29/23 07:22 Blood - Venous Blood Culture - Preliminary Staphylococcus aureus Progress Note: A&P Assessment and plan (1) Polysubstance abuse: Status: Acute (2) Sepsis: Status: Acute (3) Staphylococcus aureus bacteremia: Status: Acute (4) Toxic encephalopathy: Status: Acute Plan Assessment: 27-year-old gentleman admitted with sepsis likely secondary to bacteremia with possible endocarditis further complicated by polysubstance abuse and acute renal failure. Plan: Neuro: Polysubstance abuse and withdrawal requiring Precedex drip. Continue to titrate off as tolerated. Cardiac: Possible endocarditis. 2D echo is ordered. Pulmonary: possible septic emboli. CT angio chest today. Renal: Acute renal failure secondary to sepsis, improving. Non oliguric. Continue to monitor renal indices and urine output. Endo: No acute issues. GI: No acute issues. ID: Sepsis, Staphylococcal bacteremia, possible endocarditis. Cultures are pending. Continue broad-spectrum antibiotics. Heme/Onc: No acute issues. Psych: No acute issues. Miscellaneous: No acute issues. Prophylaxis: Heparin Diet: nothing by mouth Critical care time spent: 45 minutes Quality Stroke Does the patient have a stroke diagnosis?: No VTE Prior VTE?: No VTE Risk Level:: Medical - moderate - high VTE Device Contraindication: N/A - Device Ordered VTE Drug Contraindication: N/A - Med Ordered
[2023-01-30] MEDS: Heparin Sodium,Porcine/1/2NS 25,000 UNIT/250 ML IV.SOLN 8.08 UNIT IVCONT (19:31)
--- NOTE | 2023-01-30 20:50 | PC.NURSE ---
Assumed care at 1900. Started on heparin drip pending 1800 PTT lab results per advise of the provider.
[2023-01-31] VITALS (39 sets, daily range): BP systolic 93–143; BP diastolic 32–95; PULSE 77–130; RESP 13–50; TEMP 37.6–39.6; O2SAT 89–99; BMI 24.1
[2023-01-31 02:26] LABS: PTT Heparin Drip 33.6 SEC (53-77.9)
[2023-01-31] MEDS: Heparin Sodium,Porcine 5,000 UNIT/ML VIAL 4600 UNIT IVPUSH (02:38)
[2023-01-31] MEDS: Acetaminophen 1,000 MG/100 ML PIGGYBACK 400 MG IV (03:46)
--- NOTE | 2023-01-31 04:35 | PC.NURSE ---
CARE ASSUMED 23:15...REMAINS ON PRECIDEX DRIP 1.3 MCG/KG/HR...DROWSY...WEAKLY HICKEY BUT NOT TO COMMAND...MOANS INTERMITTANTLY...NO VERBAL RESPONSES BUT OPENS MOUTH TO COMMAND FOR ORAL COMMAND...REMAINS TACHYPNEIC AND FEBRILE...RR 42-46..O2 5 L/M VIA MASK...SAO2 94-96%...ICU STEWARD/STEWARDESS BANQUET AWARE...TYLENOL 1000MG IV X1 PER STEWARD/STEWARDESS BANQUET FOR TEMP 102.4-102.6 W/O EFFECT...HEPARIN DRIP 14 UNITS/KG/HR AT HS...PTT-HD= 33.6...BOLUSED HEPARIN 4600 units/80 UNITS/KG AND DRIP INCREASED TO 18 UNITS/KG/HR...FOR PTT-HD 08:30...NSR NO ECTOPY...REPEAT BLOOD CULTURES GPC IN CLUSTERS..STEWARD/STEWARDESS BANQUET AWARE..CURRENTLY ZOSYN AND VANCOMYCIN PER SEP..REMAINS MULTIPLE LINES OF TRACK [place] TO FEET AND ARMS...ARITA YELLOW URINE..PER SHIFT REPORT ARITA PREVIOUSLY INSERTED FOR URINARY RETENTION OF 800ml...
[2023-01-31 05:05] LABS: Venous Blood Gas Refer to POC result
[2023-01-31 05:14] LABS: Hematocrit 27.9 % (42.0-52.0); Hemoglobin 9.3 g/dl (14.0-18.0); Mean Corpuscular HGB Conc 33.3 g/dl (31.0-36.0); Mean Corpuscular Hemoglobin 27.8 pg (27.0-33.0); Mean Corpuscular Volume 83.5 fL (80.0-98.0); Mean Platelet Volume 11.9 fL (9.4-12.4); Red Blood Count 3.34 X10*6/uL (4.60-5.80); Red Cell Distribution Width 15.4 % (11.0-16.0); White Blood Count 19.7 X10*3/uL (4.8-10.8)
[2023-01-31 05:19] LABS: Platelet Count 69 X10*3/uL (160-400)
[2023-01-31 05:24] LABS: INTERNATIONAL NORM RATIO 1.5 (0.9-1.1); Prothrombin Time 17.6 SEC (10.0-13.1)
[2023-01-31 05:35] LABS: Albumin Level 2.6 g/dL (3.5-5.0); Anion Gap 16 (12-20); Blood Urea Nitrogen 35 mg/dL (9-16); Calcium 8.7 mg/dL (8.4-10.2); Carbon Dioxide 24 mmol/L (22-29); Chloride 109 mmol/L (96-108); Creatinine Clr Calc Pharmacy 86.9; Estimated Glomerular Filt Rate > 60; Glucose Random 90 mg/dL (60-115); Magnesium 2.3 mg/dL (1.6-2.6); Phosphorus 3.2 mg/dL (2.7-4.5); Potassium 4.1 mmol/L (3.3-5.1); Sodium 145 mmol/L (135-145)
[2023-01-31 06:01] LABS: Band Neutrophils Percent 5 % (3-5); Lymphocytes Percent Manual 5 % (20-40); Monocytes Percent Manual 5 % (2-11); Neutrophils Absolute Manual 17.7 X10*3/uL (2.0-8.3); Neutrophils Percent Manual 85 % (45-73)
[2023-01-31 06:03] LABS: RBC Morphology NOTED
[2023-01-31 06:04] LABS: Dohle Bodies PRESENT; Platelet Estimate DECREASED (NORMAL); Platelet Morphology Comment NORMAL; Target Cells 1+ (5-14) /OIF; Toxic Vacuolation PRESENT
[2023-01-31 06:05] LABS: Burr Cells 3+ (>5) /OIF; Toxic Granulation PRESENT
[2023-01-31 07:50] LABS: Vancomycin Random 14.3 mcg/mL (15-20)
--- NOTE | 2023-01-31 07:54 | HE.PHANOTE ---
Vancomycin Dosing Level 14.3 today. Continue current regimen. Next level 02/01 @ 1476. Ke McwilliamsD
--- NOTE | 2023-01-31 09:46 | PM.CCPN ---
Subjective Subjective Date of Service: 01/31/23 Interval History: 27-year-old gentleman admitted on 01/29/2023 with initial complaints of malaise and fever Secondary to staphylococcal bacteremia. On ER evaluation hypotensive with concern for sepsis with suboptimal response to initial IV fluid resuscitation requiring colloidal support. Also with polysubstance abuse/withdrawal. Admitted to intensive care unit and started broad-spectrum antibiotics. Repeat blood cultures positive for Gram-positive cocci. Febrile overnight. Critical Care Time (minutes): 45 Physical Exam Vital Signs: Vital Signs: Last Vital Signs Temp 101.1 F H 01/31/23 09:00 Pulse 77 01/31/23 09:06 Resp 45 H 01/31/23 09:06 BP 111/61 01/31/23 09:06 Pulse Ox 94 01/31/23 09:06 O2 Del Method Oxymask 01/31/23 09:00 O2 Flow Rate 5 01/31/23 09:00 BMI result Body Mass Index 24.1 Const: General: no acute distress and lethargic ( [place]) Orientation/consciousness: lethargic ( Arousable) Eyes: Sclerae: sclerae normal EOM: EOMs intact bilaterally Neck: Neck: Yes no lymphadenopathy, Yes trachea midline and Yes supple Resp: Effort & Inspection: normal respiratory effort and tachypneic Auscultation: crackles ( bilateral) Cardio: Rate: regular rate Rhythm: regular rhythm Heart sounds: no gallops, no murmurs and no rubs GI: Palpation (GI): Soft to palpation and Other GI palpation findings present ( Nontender) Auscultation: normal bowel sounds Extrem: General: No clubbing, No cyanosis and Yes edema ( 1+ bilateral) Objective Data Labs 01/31/23 04:57 01/31/23 04:57 Labs: Laboratory Results - last 24 hr 01/30/23 01/30/23 01/30/23 15:01 18:31 19:45 WBC RBC Hgb Hct MCV MCH MCHC RDW Plt Count MPV Immature Gran % (Auto) Neut % (Auto) Lymph % (Auto) [place] % (Auto) Eos % (Auto) Baso % (Auto) Lymph # (Auto) [place] # (Auto) Eos # (Auto) Baso # (Auto) Abs Immat Gran (auto) Absolute Neuts (auto) Absolute Nucleated RBC Nucleated RBC % (auto) Neutrophils % (Manual) Band Neutrophils % Lymphocytes % (Manual) Monocytes % (Manual) Abs Neuts (Manual) Lymphocytes # (Manual) Monocytes # (Manual) Toxic Granulation Toxic Vacuolation Dohle Bodies Platelet Estimate Plt Morphology Comment RBC Morphology Target Cells [place] Cells PT Cancelled INR Cancelled aPTT Heparin Protocol Cancelled O2 Saturation 95.0 ABG pH at Pt Temp 7.50 H ABG pCO2 at Pt Temp 40 ABG pO2 at Pt Temp 76 L ABG HCO3 31 H ABG Base Excess (Actual) 7.6 VBG pH VBG pCO2 VBG pO2 VBG HCO3 VBG O2 Saturation VBG Base Excess Sodium Potassium Chloride Carbon Dioxide Anion Gap BUN Creatinine Estim Creat Clear Calc Estimated GFR Random Glucose Calcium Phosphorus Magnesium Albumin Random Vancomycin 01/30/23 01/31/23 01/31/23 19:45 01:53 04:54 WBC RBC Hgb Hct MCV MCH MCHC RDW Plt Count MPV Immature Gran % (Auto) Neut % (Auto) Lymph % (Auto) [place] % (Auto) Eos % (Auto) Baso % (Auto) Lymph # (Auto) [place] # (Auto) Eos # (Auto) Baso # (Auto) Abs Immat Gran (auto) Absolute Neuts (auto) Absolute Nucleated RBC Nucleated RBC % (auto) Neutrophils % (Manual) Band Neutrophils % Lymphocytes % (Manual) Monocytes % (Manual) Abs Neuts (Manual) Lymphocytes # (Manual) Monocytes # (Manual) Toxic Granulation Toxic Vacuolation Dohle Bodies Platelet Estimate Plt Morphology Comment RBC Morphology Target Cells [place] Cells PT 17.5 H INR 1.5 H aPTT Heparin Protocol 30.1 L 33.6 L O2 Saturation ABG pH at Pt Temp ABG pCO2 at Pt Temp ABG pO2 at Pt Temp ABG HCO3 ABG Base Excess (Actual) VBG pH 7.53 H VBG pCO2 33 VBG pO2 82 VBG HCO3 28 H VBG O2 Saturation 97.0 VBG Base Excess 5.8 Sodium Potassium Chloride Carbon Dioxide Anion Gap BUN Creatinine Estim Creat Clear Calc Estimated GFR Random Glucose Calcium Phosphorus Magnesium Albumin Random Vancomycin 01/31/23 01/31/23 01/31/23 04:57 04:57 04:57 WBC 19.7 H RBC 3.34 L Hgb 9.3 L Hct 27.9 L MCV 83.5 MCH 27.8 MCHC 33.3 RDW 15.4 Plt Count 69 L D MPV 11.9 Immature Gran % (Auto) Cancelled Neut % (Auto) Cancelled Lymph % (Auto) Cancelled [place] % (Auto) Cancelled Eos % (Auto) Cancelled Baso % (Auto) Cancelled Lymph # (Auto) Cancelled [place] # (Auto) Cancelled Eos # (Auto) Cancelled Baso # (Auto) Cancelled Abs Immat Gran (auto) Cancelled Absolute Neuts (auto) Cancelled Absolute Nucleated RBC 0.000 Nucleated RBC % (auto) 0.0 Neutrophils % (Manual) 85 H Band Neutrophils % 5 Lymphocytes % (Manual) 5 L Monocytes % (Manual) 5 Abs Neuts (Manual) 17.7 H Lymphocytes # (Manual) 1.0 L Monocytes # (Manual) 1.0 Toxic Granulation PRESENT Toxic Vacuolation PRESENT Dohle Bodies PRESENT Platelet Estimate DECREASED Plt Morphology Comment NORMAL RBC Morphology NOTED Target Cells 1+ (5-14) Laura Cells 3+ (>5) PT 17.6 H INR 1.5 H aPTT Heparin Protocol O2 Saturation ABG pH at Pt Temp ABG pCO2 at Pt Temp ABG pO2 at Pt Temp ABG HCO3 ABG Base Excess (Actual) VBG pH VBG pCO2 VBG pO2 VBG HCO3 VBG O2 Saturation VBG Base Excess Sodium 145 Potassium 4.1 Chloride 109 H Carbon Dioxide 24 Anion Gap 16 BUN 35 H Creatinine 1.05 Estim Creat Clear Calc 86.9 Estimated GFR > 60 Random Glucose 90 Calcium 8.7 Phosphorus 3.2 Magnesium 2.3 Albumin 2.6 L Random Vancomycin 01/31/23 01/31/23 07:09 08:32 WBC RBC Hgb Hct MCV MCH MCHC RDW Plt Count MPV Immature Gran % (Auto) Neut % (Auto) Lymph % (Auto) [place] % (Auto) Eos % (Auto) Baso % (Auto) Lymph # (Auto) [place] # (Auto) Eos # (Auto) Baso # (Auto) Abs Immat Gran (auto) Absolute Neuts (auto) Absolute Nucleated RBC Nucleated RBC % (auto) Neutrophils % (Manual) Band Neutrophils % Lymphocytes % (Manual) Monocytes % (Manual) Abs Neuts (Manual) Lymphocytes # (Manual) Monocytes # (Manual) Toxic Granulation Toxic Vacuolation Dohle Bodies Platelet Estimate Plt Morphology Comment RBC Morphology Target Cells [place] Cells PT INR aPTT Heparin Protocol 38.0 L O2 Saturation ABG pH at Pt Temp ABG pCO2 at Pt Temp ABG pO2 at Pt Temp ABG HCO3 ABG Base Excess (Actual) VBG pH VBG pCO2 VBG pO2 VBG HCO3 VBG O2 Saturation VBG Base Excess Sodium Potassium Chloride Carbon Dioxide Anion Gap BUN Creatinine Estim Creat Clear Calc Estimated GFR Random Glucose Calcium Phosphorus Magnesium Albumin Random Vancomycin 14.3 L Microbiology Microbiology Results: Microbiology 01/30/23 10:48 Blood - Venous Blood Culture - Preliminary Prelim: GPC Gram Stain only 01/30/23 10:47 Blood - Venous Blood Culture - Preliminary Prelim: GPC Gram Stain only 01/29/23 07:32 Blood - Venous Blood Culture - Preliminary Staphylococcus aureus 01/29/23 Unknown Urine clean catch - Urine wright top Urine Culture - Final No growth. 01/29/23 07:22 Blood - Venous Blood Culture - Preliminary Staphylococcus aureus Progress Note: A&P Assessment and plan (1) Staphylococcus aureus bacteremia: Status: Acute (2) Toxic encephalopathy: Status: Acute (3) Polysubstance abuse: Status: Acute (4) Pneumonia: Status: Acute (5) Acute respiratory failure with hypoxia: Status: Acute Plan Assessment: 27-year-old gentleman admitted with sepsis likely secondary to bacteremia with possible endocarditis further complicated by polysubstance abuse and acute renal failure. Plan: Neuro: Polysubstance abuse and withdrawal, now titrated off Precedex drip. Cardiac: Possible endocarditis. 2D echo is pending. Pulmonary: Subsegmental embolus not requiring anticoagulation. Possible septic emboli. Staphylococcal pneumonia resulting in acute hypoxic respiratory failure. Continue to titrate off supplemental oxygen as tolerated. Renal: Acute renal failure secondary to sepsis, improving. Non oliguric. Continue to monitor renal indices and urine output. Endo: No acute issues. GI: No acute issues. ID: Sepsis, Staphylococcal bacteremia, possible endocarditis. Cultures are pending. Continue broad-spectrum antibiotics. Heme/Onc: No acute issues. Psych: No acute issues. Miscellaneous: No acute issues. Prophylaxis: Heparin Diet: nothing by mouth Critical care time spent: 45 minutes Quality Stroke Does the patient have a stroke diagnosis?: No VTE Prior VTE?: No VTE Risk Level:: Medical - moderate - high VTE Device Contraindication: N/A - Device Ordered VTE Drug Contraindication: N/A - Med Ordered
--- NOTE | 2023-01-31 11:14 | PM.CNCAR ---
History of Present Illness History of Present Illness Date of Service: 01/31/23 Requesting physician: Valentín Arora Chief complaint: TV endocarditis Narrative: 27-year-old gentleman who we have been asked to see for tricuspid valve endocarditis. He presented with malaise and fever and was noticed to have staphylococcal bacteremia. He was given IV fluids in the emergency department but did not have a good response to IV fluids and was transferred to ICU. Here he received albumin but has not been started on any pressors currently. He has background of polysubstance abuse and is currently quite sleepy and agitated and no history is possible from the patient. He is growing g positive cocci on his repeat blood cultures. His echocardiogram is showing vegetation on the tricuspid valve which is measuring between 2.6-3 cm x 1.8 cm. This is a large vegetation. He does not have any clear destruction of the tricuspid valve but there is moderate tricuspid valve regurgitation. His right ventricular function is normal. Aortic valve appears mildly thickened in short axis view but overall there is no obvious vegetation on the valve over on the mitral valve. He had just chest CTA which showed a short segment subsegmental clot in the left lower lobe as well as multiple septic emboli and pneumonia. He is on broad-spectrum antibiotics. [facility] Social History Social History Household Members: Friend(s) Housing: Apartment Do you presently have visiting nurse or other home services: No Patient Tobacco Use Status: Current everyday Tobacco user Tobacco use type: Cigarette Cigarette Packs Per Day: 1 Cigarettes Per Day: 20.0 Smoked in Last 30 Days: Yes e-Cigarette/Vaping Use: Currently Using Patient Interested in Nicotine Replacement: Yes Patient Given Instructions on How to Stop Smoking: Yes Date Education Initiated: 01/29/23 Second Hand Smoke Exposure: Yes Use of substances other than those prescribed or required for medical reasons: Yes Substance Use Type: Crack/Cocaine, IV Drugs and Opiates Substance Use Frequency: Daily Last Used Substance: Just Prior to Admission Currently Displaying Signs/Symptoms of Drug Intoxication Withdrawal: No Any prior treatment program specific to substance use: Yes Have you been hit, kicked, punched, or otherwise hurt by someone within the past year? If so, by whom?: No Do you feel safe in your current relationship?: No Current Relationship Is there a partner from a previous relationship who is making you feel unsafe now?: No Are you made to feel afraid or neglected: No Spiritual Healthcare Practices: unable to respond Advance Directives: No Advance Directives Information Provided: Yes Advance Directives on File: No Recently lost weight without trying: Unsure Nutrition Risks: Dental problems and Difficulty chewing Poor oral hygiene: Yes Meds Allergies Allergy/AdvReac Type Severity Reaction Status Date / Time tree nut [TREE NUT] Allergy Unknown ANAPHYLAXIS Verified 11/06/22 01:11 Active Medications: Current Medications Heparin Sodium (Porcine) (Heparin Sodium,Porcine 5,000 Unit/Ml Vial) 5,000 unit SUBCUT Q8H ODESSA Piperacillin Sod/Tazobactam (Sod 3.375 gm/ Sodium Chloride) 50 mls @ 100 mls/hr IV Q6H [facility] Last Infusion: 01/31/23 09:44 Dose: Infused Dexmedetomidine HCl (Precedex) 400 mcg in 100 mls @ 0 mls/hr IVCONT .Q0M [facility]; Protocol Last Titration: 01/31/23 09:06 Dose: 0 mcg/kg/hr, 0 mls/hr Vancomycin HCl 1,000 mg/ (Sodium Chloride) 270 mls @ 270 mls/hr IV Q12H [facility] [place] Last Infusion: 01/31/23 10:08 Dose: Infused Albumin Human (Kedbumin 25 %) 100 mls @ 100 mls/hr IV Q6H [facility] [place] Stop: 02/01/23 03:14 Last Infusion: 01/31/23 09:57 Dose: Infused Pharmacy Consult (Consult Rx Vancomycin Dosing) 1 each MISCELLANE DAILY PRN PRN Reason: Consult order Home Medications Medication Instructions Recorded Confirmed Last Taken Type mirtazapine 15 mg tablet 15 mg PO BEDTIME 01/29/23 01/29/23 Unknown History Physical Exam Vital Signs: Vital Signs: Last Vital Signs Temp 100.4 F 01/31/23 10:00 Pulse 79 01/31/23 10:00 Resp 45 H 01/31/23 10:00 BP 106/51 L 01/31/23 10:00 Pulse Ox 93 01/31/23 10:00 O2 Del Method Oxymask 01/31/23 10:00 O2 Flow Rate 5 01/31/23 10:00 BMI result Body Mass Index 24.1 GENERAL APPEARANCE: Tachypnea, encephalopathic. SKIN: Track frazier. HEART: no murmurs, regular rate and rhythm. Tachycardic. LUNGS: clear to auscultation anteriorly. There is a friction rub on the right base ABDOMEN: soft, nontender. EXTREMITIES: Mild edema ankles. PERIPHERAL PULSES: equal. NEUROLOGIC: Encephalopathic. Agitated. Objective Labs and Meds 01/31/23 04:57 01/31/23 04:57 Lab results: Laboratory Results - last 24 hr 01/30/23 01/30/23 01/30/23 15:01 18:31 19:45 WBC RBC Hgb Hct MCV MCH MCHC RDW Plt Count MPV Immature Gran % (Auto) Neut % (Auto) Lymph % (Auto) [place] % (Auto) Eos % (Auto) Baso % (Auto) Lymph # (Auto) [place] # (Auto) Eos # (Auto) Baso # (Auto) Abs Immat Gran (auto) Absolute Neuts (auto) Absolute Nucleated RBC Nucleated RBC % (auto) Neutrophils % (Manual) Band Neutrophils % Lymphocytes % (Manual) Monocytes % (Manual) Abs Neuts (Manual) Lymphocytes # (Manual) Monocytes # (Manual) Toxic Granulation Toxic Vacuolation Dohle Bodies Platelet Estimate Plt Morphology Comment RBC Morphology Target Cells [place] Cells PT Cancelled INR Cancelled aPTT Heparin Protocol Cancelled O2 Saturation 95.0 ABG pH at Pt Temp 7.50 H ABG pCO2 at Pt Temp 40 ABG pO2 at Pt Temp 76 L ABG HCO3 31 H ABG Base Excess (Actual) 7.6 VBG pH VBG pCO2 VBG pO2 VBG HCO3 VBG O2 Saturation VBG Base Excess Sodium Potassium Chloride Carbon Dioxide Anion Gap BUN Creatinine Estim Creat Clear Calc Estimated GFR Random Glucose Calcium Phosphorus Magnesium Albumin Random Vancomycin 01/30/23 01/31/23 01/31/23 19:45 01:53 04:54 WBC RBC Hgb Hct MCV MCH MCHC RDW Plt Count MPV Immature Gran % (Auto) Neut % (Auto) Lymph % (Auto) [place] % (Auto) Eos % (Auto) Baso % (Auto) Lymph # (Auto) [place] # (Auto) Eos # (Auto) Baso # (Auto) Abs Immat Gran (auto) Absolute Neuts (auto) Absolute Nucleated RBC Nucleated RBC % (auto) Neutrophils % (Manual) Band Neutrophils % Lymphocytes % (Manual) Monocytes % (Manual) Abs Neuts (Manual) Lymphocytes # (Manual) Monocytes # (Manual) Toxic Granulation Toxic Vacuolation Dohle Bodies Platelet Estimate Plt Morphology Comment RBC Morphology Target Cells [place] Cells PT 17.5 H INR 1.5 H aPTT Heparin Protocol 30.1 L 33.6 L O2 Saturation ABG pH at Pt Temp ABG pCO2 at Pt Temp ABG pO2 at Pt Temp ABG HCO3 ABG Base Excess (Actual) VBG pH 7.53 H VBG pCO2 33 VBG pO2 82 VBG HCO3 28 H VBG O2 Saturation 97.0 VBG Base Excess 5.8 Sodium Potassium Chloride Carbon Dioxide Anion Gap BUN Creatinine Estim Creat Clear Calc Estimated GFR Random Glucose Calcium Phosphorus Magnesium Albumin Random Vancomycin 01/31/23 01/31/23 01/31/23 04:57 04:57 04:57 WBC 19.7 H RBC 3.34 L Hgb 9.3 L Hct 27.9 L MCV 83.5 MCH 27.8 MCHC 33.3 RDW 15.4 Plt Count 69 L D MPV 11.9 Immature Gran % (Auto) Cancelled Neut % (Auto) Cancelled Lymph % (Auto) Cancelled [place] % (Auto) Cancelled Eos % (Auto) Cancelled Baso % (Auto) Cancelled Lymph # (Auto) Cancelled [place] # (Auto) Cancelled Eos # (Auto) Cancelled Baso # (Auto) Cancelled Abs Immat Gran (auto) Cancelled Absolute Neuts (auto) Cancelled Absolute Nucleated RBC 0.000 Nucleated RBC % (auto) 0.0 Neutrophils % (Manual) 85 H Band Neutrophils % 5 Lymphocytes % (Manual) 5 L Monocytes % (Manual) 5 Abs Neuts (Manual) 17.7 H Lymphocytes # (Manual) 1.0 L Monocytes # (Manual) 1.0 Toxic Granulation PRESENT Toxic Vacuolation PRESENT Dohle Bodies PRESENT Platelet Estimate DECREASED Plt Morphology Comment NORMAL RBC Morphology NOTED Target Cells 1+ (5-14) Laura Cells 3+ (>5) PT 17.6 H INR 1.5 H aPTT Heparin Protocol O2 Saturation ABG pH at Pt Temp ABG pCO2 at Pt Temp ABG pO2 at Pt Temp ABG HCO3 ABG Base Excess (Actual) VBG pH VBG pCO2 VBG pO2 VBG HCO3 VBG O2 Saturation VBG Base Excess Sodium 145 Potassium 4.1 Chloride 109 H Carbon Dioxide 24 Anion Gap 16 BUN 35 H Creatinine 1.05 Estim Creat Clear Calc 86.9 Estimated GFR > 60 Random Glucose 90 Calcium 8.7 Phosphorus 3.2 Magnesium 2.3 Albumin 2.6 L Random Vancomycin 01/31/23 01/31/23 07:09 08:32 WBC RBC Hgb Hct MCV MCH MCHC RDW Plt Count MPV Immature Gran % (Auto) Neut % (Auto) Lymph % (Auto) [place] % (Auto) Eos % (Auto) Baso % (Auto) Lymph # (Auto) [place] # (Auto) Eos # (Auto) Baso # (Auto) Abs Immat Gran (auto) Absolute Neuts (auto) Absolute Nucleated RBC Nucleated RBC % (auto) Neutrophils % (Manual) Band Neutrophils % Lymphocytes % (Manual) Monocytes % (Manual) Abs Neuts (Manual) Lymphocytes # (Manual) Monocytes # (Manual) Toxic Granulation Toxic Vacuolation Dohle Bodies Platelet Estimate Plt Morphology Comment RBC Morphology Target Cells [place] Cells PT INR aPTT Heparin Protocol 38.0 L O2 Saturation ABG pH at Pt Temp ABG pCO2 at Pt Temp ABG pO2 at Pt Temp ABG HCO3 ABG Base Excess (Actual) VBG pH VBG pCO2 VBG pO2 VBG HCO3 VBG O2 Saturation VBG Base Excess Sodium Potassium Chloride Carbon Dioxide Anion Gap BUN Creatinine Estim Creat Clear Calc Estimated GFR Random Glucose Calcium Phosphorus Magnesium Albumin Random Vancomycin 14.3 L Imaging Radiologist's impression: Impressions Chest CTA 01/30/23 10:38 IMPRESSION: 1. A short segment subsegmental clot is newly identified in the left lower lobe. No large central or segmental pulmonary emboli. Technically limited exam. Recommend bilateral leg ultrasound. 2. Multiple ill-defined progressive pulmonary nodules, at least one with cavitation. Leading differential considerations include necrotizing vasculitis such as Taqueria's granulomatosis or septic emboli. Recommend immediate vasculitis workup. Recommend blood cultures and echocardiography. Lymphoma/leukemia is an additional consideration. This severe rapidly progressive diffuse lung disease is almost certainly the cause of the patient's symptoms and elevated d-dimer. 3. Pulmonary arterial hypertension. Evidence of increased right heart pressures. Recommend echocardiography. 4. New bilateral multifocal consolidation primarily seen posteriorly. New bilateral right greater than left effusions. Aspiration pneumonia or hemorrhage are considerations. 5. Hepatosplenomegaly. VTE: positive Assessment and Plan (1) Acute respiratory failure with hypoxia: Status: Acute (2) Pneumonia: Status: Acute (3) Polysubstance abuse: Status: Acute (4) Endocarditis: Status: Acute Plan 27-year-old male presenting fever, malaise and hypotension requiring IV fluids and albumin in the intensive care unit. Workup has revealed multiple pulmonary septic emboli and he is growing Staphylococcus in his blood. He is encephalopathic currently due to polysubstance abuse. Other possibility can be emboli to his brain due to left side involvement. On his transfer sick ago there is no obvious aortic valve or mitral valve involvement other than the fact that the aortic valve appears mildly thickened in short axis view. He has a large vegetation on the tricuspid valve moderate tricuspid regurgitation. Right now is quite sick and septic to perform transesophageal echocardiogram. There is no obvious surgical emergency as the valve does not appear to be destroyed on transthoracic echo and biventricular function appears to be normal too. I think he should be supported and has improved we should do a transesophageal echocardiogram to further assess the left-sided valves. Continue broad-spectrum antibiotics in the meantime. We will follow along with you. Thank you for allowing me to participate in the care of your patient. Please feel free to contact me if you have any questions. Time Spent With Patient Time: Total time managing care of this patient today ____ minutes. Procedures Date of Service Date of Service: 01/31/23
[2023-01-31] MEDS: ondansetron HCL 4 MG/2 ML VIAL IVPUSH ×2 (12:34→19:58)
--- NOTE | 2023-01-31 13:13 | MHC.CM.PN ---
Met with pt to review d/c planning needs: interview limited by pt's tachypnea: pt resides alone, has no services or DME, active IVDU: states he follows w/Dr. Aguirre - declined HCP, requested no visitors or information to be given to anyone: D/C planning ongoing: pt may require IV ATB for bacteremia: d/t active IVDU, he will need placement as he will not be eligible for home administration/VNA. No infectious disease consult ordered or PICC line placement at this time. CM to follow for finalization of d/c planning.
[2023-02-01] VITALS (43 sets, daily range): BP systolic 84–137; BP diastolic 44–72; PULSE 73–130; RESP 16–50; TEMP 35.2–38.8; O2SAT 22–99; BMI 25.5
--- NOTE | 2023-02-01 03:12 | PC.NURSE ---
ASSUMED CARE OF PT AT 1900 AT WHICH TIME PT WAS AGITATED AND VERY RESTLESS IN THE BED. TEMP WAS 103.1CORE. PT RECEIVED TORODOL 30 MG IV FOR C/O GENERALIZED PAIN. PRECEDEX DRIP INFUSING AT 1.4 MCG AND UPPED TO 1.5MCG. PT ALSO RECEIVED ZOFRAN FOR NAUSEA. NO VOMITTING. TYLENOL 975 MG GIVEN PO. PT TURNED AND REPOS. SMEARING STOOL. PREVIOUS LOOSE STOOL PER DAY SHIFT RN. BP STABLE. MONITOR NSR, 80'S -106, NO ECTOPY. PT RELAXED AFTER THESE INTERVENTIONS AND FELL ASLEEP. HEART RTE WENT DOWN TO 60'S AND SBP 90'S. PRECEDEX WAS DECREASED TO 0.6 MCG BUT PT IS AWAKE NOW AND YELLOW HELP ME OVER AND OVER. HE IS VERY AGITATED AND RESTLESS. IV IN LEFT UPPER ARM LEAKING AND ATTEMPTED NEW IV UNSUCCESSFUL. NSG TINNING MACHINE SET UP OPERATOR TRYING NEW IV AT PRESENT. SOO SONG AT BEDSIDE AND ORDERED ANOTHER DOSE OF TORODOL BUT LESSER DOSE OF 15 MG IV GIVEN. O2 SATS DOWN TO 80'S ON NC AND OXYMASK APPLIED AT 6L. SATS IMPROVED.
[2023-02-01] MEDS: propofoL 1,000 MG/100 ML VIAL 19.14 MG IVCONT ×5 (04:25→20:00)
--- NOTE | 2023-02-01 05:04 | W.PM.CCHP ---
Procedures Date of Service Date of Service: 02/01/23 Intubation Intubation Comments: Patient who was admitted with endocarditis and sepsis all in the setting of IV drug abuse, being treated with vancomycin and Zosyn, showing signs of opioid withdrawal with a COWS score? of 17, was initially managed with Tylenol and Toradol for fever of 103 and pain control which worked great for about 8 hours but about 04:00amd today , the patient developed significant wheezing, became very anxious, DESPITE PRECEDEX GTT; his work of breathing worsened and it was eminent that he was getting tired.? Patient was using accessory muscles, had out tubal wheezing, respiratory rate was in the 50s and his O2 sat was in the mid 80s intermittently. Given the concern of a sudden crash, I considered the best option for this patient was to intubate him, I discussed this in detail with him, he appeared to be understanding why I had to do these and was in? agreement although I am not 100% sure that he was fully capable of making coherent decisions, therefore did I perform these under emergent medical necessity. Consent for Procedure: Emergent-no informed consent obtained Time out performed: Yes Sedative: propofol Mg given: 100 Paralytic: rocuronium Mg given: 50 Laryngoscope: fiber optic video scope ET tube size: 7.5 ET tube uncuffed: No Tube secured depth (cm): 25 Tube secured location: lips Tube placement confirmation: visualized tube passing through cords, equal breath sounds bilaterally, no breath sounds over epigastrium and confirmation by capnometry Patient tolerated procedure: well and no complications Intubation complications: none and other
--- NOTE | 2023-02-01 05:04 | W.PM.CCHP ---
Procedures Date of Service Date of Service: 02/01/23 Central Line Placement Left IJ: Consent for Procedure: Emergent-no informed consent obtained Time out performed: Yes Sterile Technique Used: Yes Patient placed on monitor/pulse ox: Yes MD prep: mask, gown and gloves Central line prep: Chlorhexidine scrub (x2) Ultrasound used for placement: Yes Central line lumen inserted: triple (16 cm) Post procedure: sutured in place, good blood return, all ports aspirated, flushed, capped and sterile dressing applied Post procedure x-ray: tip of catheter in good position and no pneumothorax seen Patient tolerated procedure: well Complications: none
[2023-02-01] MEDS: propofoL 200 MG/20 ML VIAL 100 MG IVPUSH (05:40)
--- NOTE | 2023-02-01 06:57 | PC.NURSE ---
PT BECAME INCREASINGLY RESTLESS AND AGITATED. O2 SATS DROPPED TO MID 80'S AND PT WITH AUDIBLE WHEEZE. PT ON OXYMASK AT 6L AND INCREASED TO 10L. PROVIDER AT BEDSIDE AND DECISION MADE TO INTUBATE. PT WAS PREMEDICATED WITH PROPOFOL 100 MG IVP AND ROCURONIUM 50 MG IVP. #7.0 ETT INSERTED AND VENT SETTINGS OF AC 18/TV 350/PEEP 5/FIO2 100%. TLC INSERTED LIJ WITHOUT COMPLICATION. OGT INSERTED. PCXR DONE AND READ BY NOHEMI VANN. LEVOPHED WAS STARTED BUT LATER STOPPED BP IMPROVED. U/O 25-40 ML/HR. LR DRIP STARTED AT 150 ML/HR.
--- NOTE | 2023-02-01 10:08 | PM.CCPN ---
Subjective Subjective Date of Service: 02/01/23 Interval History: 27-year-old gentleman admitted on 01/29/2023 with initial complaints of malaise and fever Secondary to staphylococcal bacteremia. On ER evaluation hypotensive with concern for sepsis with suboptimal response to initial IV fluid resuscitation requiring colloidal support. Also with polysubstance abuse/withdrawal. Admitted to intensive care unit and started broad-spectrum antibiotics. Further hospital course significant for staphylococcal endocarditis with large tricuspid vegetation, septic pulmonary emboli, staphylococcal pneumonia with cavitation, acute hypoxic respiratory failure requiring intubation on 02/01/2023. Overnight events as above Critical Care Time (minutes): 60 Physical Exam Vital Signs: Vital Signs: Last Vital Signs Temp 99.5 F 02/01/23 10:00 Pulse 94 02/01/23 10:00 Resp 28 H 02/01/23 10:00 BP 110/60 02/01/23 10:00 Pulse Ox 91 L 02/01/23 10:00 O2 Del Method Mechanical Ventil ation 02/01/23 10:00 O2 Flow Rate 6 02/01/23 04:00 FiO2 70 02/01/23 10:00 BMI result Body Mass Index 25.5 Const: General: no acute distress and other ( sedated on the vent) Eyes: Sclerae: sclerae normal EOM: EOMs intact bilaterally Neck: Neck: Yes no lymphadenopathy, Yes trachea midline and Yes supple Resp: Auscultation: crackles ( diffuse bilateral) Cardio: Rate: regular rate Rhythm: regular rhythm Heart sounds: no gallops, no murmurs and no rubs GI: Palpation (GI): Soft to palpation and Other GI palpation findings present ( Nontender) Auscultation: normal bowel sounds Extrem: General: No clubbing, No cyanosis and Yes edema ( 1+ bilateral) Objective Data Labs 02/01/23 05:15 02/01/23 05:15 Labs: Laboratory Results - last 24 hr 02/01/23 02/01/23 02/01/23 05:15 05:15 05:15 WBC 19.7 H RBC 2.80 L Hgb 7.7 L Hct 23.2 L MCV 82.9 MCH 27.5 MCHC 33.2 RDW 15.7 Plt Count 51 L D MPV 10.9 Immature Gran % (Auto) 3.2 H Neut % (Auto) 76.5 H Lymph % (Auto) 13.9 L [place] % (Auto) 5.9 Eos % (Auto) 0.2 Baso % (Auto) 0.3 Lymph # (Auto) 2.7 [place] # (Auto) 1.2 Eos # (Auto) 0.0 Baso # (Auto) 0.1 Abs Immat Gran (auto) 0.63 H Absolute Neuts (auto) 15.1 H Absolute Nucleated RBC 0.000 Nucleated RBC % (auto) 0.0 VBG pH 7.32 VBG pCO2 52 VBG pO2 90 VBG HCO3 27 H VBG O2 Saturation 96.0 VBG Base Excess 1.4 Sodium 142 Potassium 3.7 Chloride 107 Carbon Dioxide 23 Anion Gap 16 BUN 39 H Creatinine 1.18 Estim Creat Clear Calc 77.3 Estimated GFR > 60 Random Glucose 134 H Calcium 8.6 Phosphorus 4.6 H Magnesium 2.2 Total Bilirubin 2.8 H AST 21 ALT 14 Alkaline Phosphatase 157 H Total Protein 6.1 L Albumin 3.5 Microbiology Microbiology Results: Microbiology 01/30/23 10:47 Blood - Venous Blood Culture - Preliminary Staphylococcus aureus 01/30/23 10:48 Blood - Venous Blood Culture - Preliminary Staphylococcus aureus 01/29/23 07:32 Blood - Venous Blood Culture - Final Staphylococcus aureus 01/29/23 07:22 Blood - Venous Blood Culture - Final Staphylococcus aureus 01/29/23 Unknown Urine clean catch - Urine wright top Urine Culture - Final No growth. Progress Note: A&P Assessment and plan (1) Endocarditis: Status: Acute (2) Acute respiratory failure with hypoxia: Status: Acute (3) Staphylococcal pneumonia: Status: Acute (4) Staphylococcus aureus bacteremia: Status: Acute (5) Acute septic pulmonary embolus: Status: Acute (6) Polysubstance abuse: Status: Acute (7) Tricuspid valve vegetation: Status: Acute Plan Assessment: 27-year-old gentleman admitted with sepsis likely secondary to bacteremia with possible endocarditis further complicated by polysubstance abuse and acute renal failure. Plan: Neuro: Polysubstance abuse and withdrawal with toxic encephalopathy. Cardiac: septic shock, continue to titrate of pressor support as tolerated. Endocarditis with tricuspid vegetation and septic emboli. Cardiology service care appreciated. Pulmonary: Subsegmental embolus not requiring anticoagulation. Staphylococcal pneumonia with cavitation resulting in acute hypoxic respiratory failure now requiring ventilatory support. Continue to titrate off as tolerated. Renal: Acute renal failure secondary to sepsis, improving. Non oliguric. Continue to monitor renal indices and urine output. Endo: No acute issues. GI: No acute issues. ID: Sepsis, Staphylococcal bacteremia, endocarditis. Cultures are pending. Continue broad-spectrum antibiotics. Heme/Onc: No acute issues. Psych: No acute issues. Miscellaneous: No acute issues. Prophylaxis: Heparin, omeprazole Diet: Tube feeds Critical care time spent: 60 minutes Quality Stroke Does the patient have a stroke diagnosis?: No VTE Prior VTE?: No VTE Risk Level:: Medical - moderate - high VTE Device Contraindication: N/A - Device Ordered VTE Drug Contraindication: N/A - Med Ordered
--- NOTE | 2023-02-01 17:10 | PC.NURSE ---
Addendum entered by Gloria Hernandez RN 02/01/23 17:25: Tube feeds placed on hold Original Note: Assumed care at 0700. Patient intubated and sedated. Head CT ordered and completed - see report. Fio2 down to 50% and patient maintaining sats >88% per MD order. 1500 - Fio2 requirements slowly increasing, dyssynchronous w/ vent, belly breathing - Nimbex PRN ordered and administered with good effect but only lasting 45min-1hr. Fentanyl PRN administered w/ no effect. MD notified. RT at bedside to lavage x2 - suctioned thick cream secretions w/ no noticeable plug. Peep increased from 5 to 8 by RT per MD TO order. Patient continues to remain typnic, hypoxic and dyssynchronous. Nimbex PRN administered with good effect. Placed on 100% Fio2 by RT sating >92%. TO Dr Arora CXR completed - see report. TO Dr Arora Nimbex gtt increased to 4mcg/kg/min. Plan for bedside bronch.
--- NOTE | 2023-02-01 17:47 | PC.RT ---
RT called to bedside, pt noted desaturating into high 80's, rr > 35. RT noted scattered rhonchi, pt lavaged for mod thick pink sec. MD aware, RN in contact. Fio2 increased to 100%, Peep to 8 cmh2o and cxr ordered.
--- NOTE | 2023-02-01 19:48 | HE.PHANOTE ---
Vancomycin Dosing Addendum Vancomycin trough 15.1. Continue with current regimen and monitoring renal function. Predicted AUC 533
[2023-02-02] VITALS (41 sets, daily range): BP systolic 101–126; BP diastolic 47–71; PULSE 73–108; RESP 11–31; TEMP 34–39.5; O2SAT 88–96; BMI 25.7
[2023-02-02] MEDS: propofoL 1,000 MG/100 ML VIAL 19.14 MG IVCONT ×6 (00:19→22:49)
--- NOTE | 2023-02-02 05:46 | PC.NURSE ---
CARE ASSUMED 23;15...REMAINS TUBED/VENTED---VCV VENT SUPPORT...OVER BREATHING VENT ON AC22 AT RR 26-28....NO GAG/COUGH REFLEXEX BUT WEAKLY MOVING TOES AND PARTIALLY OPENING EYES (NO TRACKING)...PROPOFOL 50 MCG/KG/MIN/FENTANYL 125 MCG/HR/NIMBEX DRIP 4 MCG/KG/MIN INFUSING.....PRN NIMBEX BOLUS GIVEN WITH RR CONTROLLED ON AC SETTINGS....BP STABLE...SINUS TACH HR 102-108..NO ECTOPY...(+) MURMUR...(+) JVD...PREVIOUS ECHO SHOWED LARGE TRICUSPID VEGETATION AND MODERATE TRICUSPID REGURGITATION...T-MAX 100.0 OVERNIGHT
--- NOTE | 2023-02-02 09:09 | PM.CCPN ---
Subjective Subjective Date of Service: 02/02/23 Interval History: 27-year-old gentleman admitted on 01/29/2023 with initial complaints of malaise and fever Secondary to staphylococcal bacteremia. On ER evaluation hypotensive with concern for sepsis with suboptimal response to initial IV fluid resuscitation requiring colloidal support. Also with polysubstance abuse/withdrawal. Admitted to intensive care unit and started broad-spectrum antibiotics. Further hospital course significant for MRSA endocarditis with large tricuspid vegetation, septic pulmonary emboli, MRSA pneumonia with cavitation, acute hypoxic respiratory failure requiring intubation on 02/01/2023. No events overnight. Critical Care Time (minutes): 45 Physical Exam Vital Signs: Vital Signs: Last Vital Signs Temp 99.1 F 02/02/23 08:00 Pulse 76 02/02/23 08:00 Resp 22 H 02/02/23 08:00 BP 101/52 L 02/02/23 08:00 Pulse Ox 95 02/02/23 08:00 O2 Del Method Mechanical Ventil ation 02/02/23 08:00 O2 Flow Rate 70 02/01/23 20:00 FiO2 50 02/02/23 08:05 BMI result Body Mass Index 25.7 Const: General: no acute distress and other (Sedated on the vent) Eyes: Sclerae: sclerae normal EOM: EOMs intact bilaterally Neck: Neck: Yes no lymphadenopathy, Yes trachea midline and Yes supple Resp: Auscultation: crackles (Diffuse bilateral) Cardio: Rate: regular rate Rhythm: regular rhythm Heart sounds: no gallops, no murmurs and no rubs GI: Palpation (GI): Soft to palpation and Other GI palpation findings present ( Nontender) Auscultation: normal bowel sounds Extrem: General: No clubbing, No cyanosis and Yes edema (1+ bilateral) Objective Data Labs 02/02/23 05:05 02/02/23 05:05 Labs: Laboratory Results - last 24 hr 02/01/23 02/02/23 02/02/23 19:08 05:03 05:05 WBC 20.5 H RBC 2.62 L Hgb 7.2 L Hct 21.7 L MCV 82.8 MCH 27.5 MCHC 33.2 RDW 16.0 Plt Count 59 L MPV 11.5 Immature Gran % (Auto) 3.1 H Neut % (Auto) 89.8 H Lymph % (Auto) 3.5 L [place] % (Auto) 3.5 Eos % (Auto) 0.0 Baso % (Auto) 0.1 Lymph # (Auto) 0.7 L [place] # (Auto) 0.7 Eos # (Auto) 0.0 Baso # (Auto) 0.0 Abs Immat Gran (auto) 0.63 H Absolute Neuts (auto) 18.4 H Absolute Nucleated RBC 0.000 Nucleated RBC % (auto) 0.0 VBG pH 7.45 H VBG pCO2 40 VBG pO2 65 VBG HCO3 28 H VBG O2 Saturation 91.0 VBG Base Excess 4.6 Sodium Potassium Chloride Carbon Dioxide Anion Gap BUN Creatinine Estim Creat Clear Calc Estimated GFR Random Glucose Calcium Phosphorus Magnesium Total Bilirubin AST ALT Alkaline Phosphatase Total Protein Albumin Random Vancomycin 15.1 02/02/23 05:05 WBC RBC Hgb Hct MCV MCH MCHC RDW Plt Count MPV Immature Gran % (Auto) Neut % (Auto) Lymph % (Auto) [place] % (Auto) Eos % (Auto) Baso % (Auto) Lymph # (Auto) [place] # (Auto) Eos # (Auto) Baso # (Auto) Abs Immat Gran (auto) Absolute Neuts (auto) Absolute Nucleated RBC Nucleated RBC % (auto) VBG pH VBG pCO2 VBG pO2 VBG HCO3 VBG O2 Saturation VBG Base Excess Sodium 148 H Potassium 4.0 Chloride 112 H Carbon Dioxide 26 Anion Gap 14 BUN 47 H Creatinine 1.17 Estim Creat Clear Calc 78.0 Estimated GFR > 60 Random Glucose 129 H Calcium 8.7 Phosphorus 5.2 H Magnesium 2.7 H Total Bilirubin 1.5 H AST 26 ALT 15 Alkaline Phosphatase 129 H Total Protein 6.2 L Albumin 3.4 L Random Vancomycin Microbiology Microbiology Results: Microbiology 01/30/23 10:47 Blood - Venous Blood Culture - Final Methicillin Res Staph Aureus 01/30/23 10:48 Blood - Venous Blood Culture - Final Methicillin Res Staph Aureus 01/29/23 07:32 Blood - Venous Blood Culture - Final Staphylococcus aureus 01/29/23 07:22 Blood - Venous Blood Culture - Final Staphylococcus aureus 01/29/23 Unknown Urine clean catch - Urine wright top Urine Culture - Final No growth. Progress Note: A&P Assessment and plan (1) MRSA bacteremia: Status: Acute (2) MRSA pneumonia: Status: Acute (3) Tricuspid valve vegetation: Status: Acute (4) Endocarditis: Status: Acute (5) Acute respiratory failure with hypoxia: Status: Acute (6) Toxic encephalopathy: Status: Acute (7) Polysubstance abuse: Status: Acute (8) Sepsis: Status: Acute (9) Acute septic pulmonary embolus: Status: Acute Plan Assessment: 27-year-old gentleman admitted with sepsis likely secondary to bacteremia with possible endocarditis further complicated by polysubstance abuse and acute renal failure. Plan: Neuro: Polysubstance abuse and withdrawal with toxic encephalopathy. Cardiac: Septic shock, resolved, titrated off pressors. MRSA endocarditis with tricuspid vegetation and septic emboli. Cardiology service care appreciated. Planned for ABBIE. Pulmonary: Subsegmental embolus not requiring anticoagulation. MRSA pneumonia with cavitation resulting in acute hypoxic respiratory failure now requiring ventilatory support. Continue to titrate off as tolerated. Renal: Acute renal failure secondary to sepsis, improving. Non oliguric. Continue to monitor renal indices and urine output. Endo: No acute issues. GI: No acute issues. ID: Sepsis, MRSA bacteremia, endocarditis. Continue vancomycin. Heme/Onc: Thrombocytopenia secondary to sepsis. Psych: No acute issues. Miscellaneous: No acute issues. Prophylaxis: Heparin, omeprazole Diet: Tube feeds Critical care time spent: 45 minutes Quality Stroke Does the patient have a stroke diagnosis?: No VTE Prior VTE?: No VTE Risk Level:: Medical - moderate - high VTE Device Contraindication: N/A - Device Ordered VTE Drug Contraindication: N/A - Med Ordered
--- NOTE | 2023-02-02 09:30 | PM.PNCARD ---
Subjective Subjective Date of Service: 02/02/23 Interval history: Patient remains intubated. Chart reviewed. Review of Systems Review of Systems Cannot be obtained at this time. Physical Exam Vital Signs: Last Vital Signs Temp 99.3 F 02/02/23 09:00 Pulse 77 02/02/23 09:09 Resp 22 H 02/02/23 09:00 BP 103/54 L 02/02/23 09:09 Pulse Ox 95 02/02/23 09:00 O2 Del Method Mechanical Ventilation 02/02/23 09:00 O2 Flow Rate 70 02/01/23 20:00 FiO2 50 02/02/23 09:00 BMI result Body Mass Index 25.7 Const Other: Intubated General: comfortable and no acute distress Orientation/consciousness: No patient oriented x3 HEENT Other: Unremarkable Head: Yes normal to inspection Neck Neck: Yes normal visual inspection Chest Chest palpation & inspection: normal inspection of the chest Resp Auscultation: clear to auscultation bilaterally Cardio Palpation: normal PMI Heart sounds: S1 normal heart sound present, S2 normal heart sound present, no gallops, Murmur heart sound present systolic I/ and at the right sternal border and no rubs GI Palpation (GI): Soft to palpation Back/Spine/Pelvis Other: unremarkable Skin General skin exam: no rashes or lesions noted Neuro General: No patient oriented x3 Extrem General: Yes normal to inspection Psych Mental Status: mental status grossly abnormal Objective Labs and Meds 02/02/23 05:05 02/02/23 05:05 Lab results: Laboratory Results - last 24 hr 02/01/23 02/02/23 02/02/23 19:08 05:03 05:05 WBC 20.5 H RBC 2.62 L Hgb 7.2 L Hct 21.7 L MCV 82.8 MCH 27.5 MCHC 33.2 RDW 16.0 Plt Count 59 L MPV 11.5 Immature Gran % (Auto) 3.1 H Neut % (Auto) 89.8 H Lymph % (Auto) 3.5 L [place] % (Auto) 3.5 Eos % (Auto) 0.0 Baso % (Auto) 0.1 Lymph # (Auto) 0.7 L [place] # (Auto) 0.7 Eos # (Auto) 0.0 Baso # (Auto) 0.0 Abs Immat Gran (auto) 0.63 H Absolute Neuts (auto) 18.4 H Absolute Nucleated RBC 0.000 Nucleated RBC % (auto) 0.0 VBG pH 7.45 H VBG pCO2 40 VBG pO2 65 VBG HCO3 28 H VBG O2 Saturation 91.0 VBG Base Excess 4.6 Sodium Potassium Chloride Carbon Dioxide Anion Gap BUN Creatinine Estim Creat Clear Calc Estimated GFR Random Glucose Calcium Phosphorus Magnesium Total Bilirubin AST ALT Alkaline Phosphatase Total Protein Albumin Random Vancomycin 15.1 02/02/23 05:05 WBC RBC Hgb Hct MCV MCH MCHC RDW Plt Count MPV Immature Gran % (Auto) Neut % (Auto) Lymph % (Auto) [place] % (Auto) Eos % (Auto) Baso % (Auto) Lymph # (Auto) [place] # (Auto) Eos # (Auto) Baso # (Auto) Abs Immat Gran (auto) Absolute Neuts (auto) Absolute Nucleated RBC Nucleated RBC % (auto) VBG pH VBG pCO2 VBG pO2 VBG HCO3 VBG O2 Saturation VBG Base Excess Sodium 148 H Potassium 4.0 Chloride 112 H Carbon Dioxide 26 Anion Gap 14 BUN 47 H Creatinine 1.17 Estim Creat Clear Calc 78.0 Estimated GFR > 60 Random Glucose 129 H Calcium 8.7 Phosphorus 5.2 H Magnesium 2.7 H Total Bilirubin 1.5 H AST 26 ALT 15 Alkaline Phosphatase 129 H Total Protein 6.2 L Albumin 3.4 L Random Vancomycin Imaging Radiologist's impression: Impressions Head CT 02/01/23 11:57 IMPRESSION: No acute intracranial hemorrhage or territorial infarction. No acute findings. Chest X-Ray 02/01/23 17:26 IMPRESSION: 1. Endotracheal tube 4 cm above the edilberto. 2. Left IJ catheter tip at caval atrial junction. 3. Nasogastric tube in stomach. 4. Persistent extensive bilateral airspace opacities. Progress Note: A&P Assessment and plan (1) MRSA bacteremia: Status: Acute (2) Endocarditis: Status: Acute (3) Polysubstance abuse: Status: Acute Plan In the recent transthoracic echocardiogram, suspicion of tricuspid valve endocarditis which goes along with his history. Erick is reasonable to assess further but it seems there is an issue with consent. Patient himself is not concerned able as he is intubated. Per documentation, he did not wish anyone else to be contacted. For current RN/Dr. Arora, apparently he specifically did not want his father contacted. Hence if he have to do the ERICK, it may have to be done on an urgent/medically necessary basis. Will also check with the chief librarian work with blind. Otherwise, only concern is diminished platelet count which can increase the bleeding risk. Currently, he seems to be overall stable on ventilator. Appropriate management the same. Antibiotics. Will follow up with you. Time Spent With Patient Time: Total time managing care of this patient today ____ minutes. Progress Note: Quality Stroke Does the patient have a stroke diagnosis?: No Procedures Date of Service Date of Service: 02/02/23
--- NOTE | 2023-02-02 09:54 | MHC.CM.PN ---
Patient remains in ICU. Intubated/vented 02/01. Previous conversation between patient and CM, patient stated he did not want any information provided to anyone. T/W spoke with Alem of Risk Management. Due to change in patient's condition and not being able to make his own decisions, MD will need to document such and reach out to next of kin for consents. Dr Arora aware. Continue to monitor for d/c needs.
--- NOTE | 2023-02-02 11:24 | MHC.CLN ---
PT IS INTUBATED AND SEDATED PT IS CURRENTLY NPO DISCUSSED AT ROUNDS WITH MD IF TF NEEDED; RECOMMEND PROMOTE ATE MAX GOAL RATE 65ML/HR WITH 240ML FWF Q 8 HRS TO PROVIDE 1560KCLAS (5KCALS TOTAL WITH SEDATION, 30KCALS/KG), 97.5G PROTEIN (1.4G/KG), 2028ML TOTAL WATER FROM FORMULA AND FLUSH (30ML/KG) MONITOR TOLERANCE, RESIDUALS AND LYTES SEE FULL CLINICAL NUTRITION ASSESSMENT
--- NOTE | 2023-02-02 14:32 | PC.NURSE ---
Addendum entered by Gloria Hernandez RN 02/02/23 17:16: Patient continuing to break through sedation - maxed rate per protocol on Propofol & Fentanyl gtt. Propofol 50mg IVP PRN q15min ordered and administered per EMAR but only lasting 20-25mins. MD notified. MAP maintaining <65 - restarted on Levophed gtt per EMAR. Precedex gtt ordered and started per EMAR. Patient continued to wake up, throw legs in air, dyssynchronous w/ vent, O2 sat down to 86% - MD notified - Versed 4mg IVP ordered and administered with good effect. Okay to continue on Precedex gtt per MD. Temp up to 101.3 - MD notified, no new orders at this time. Current vitals: tEMP 101.3, HR 81, RR 23, 115/63 map 77, 91% on 30% Fio2. Original Note: Assumed care at 0700. Patient intubated and sedated on Propofol, Fentanyl & Nimbex gtt. Absent cough, gag and pain response, flaccid; synchronous w/ vent; TOF 4/4 @ 3mA - MD aware. Bedside ABBIE completed - see report. Nimbex paused at 1120 - pt started stacking breaths, bucking vent, RR low 30's - MD notified and Nimbex 20mg IVP administered and gtt restarted at 1130. This RN at bedside at 1405 - Pt calm and synchronous w/ vent but moving head back and forth. Patient shaking head to yes and no questions - MD at bedside and Nimbex gtt paused. Continued on Propofol and Fentanyl gtts. Patients eyes open, reaching for ETT - Fent gtt titrated per EMAR and Dilaudid 1mg IVP ordered and administered w/ no effect. MD at bedside and Propofol 50mcg IVP administered by MD w/ good effect.
[2023-02-03] VITALS (40 sets, daily range): BP systolic 92–134; BP diastolic 36–79; PULSE 56–113; RESP 19–30; TEMP 34–39.7; O2SAT 91–97; BMI 25.3
[2023-02-03] MEDS: propofoL 1,000 MG/100 ML VIAL 19.14 MG IVCONT ×3 (01:30→09:21)
--- NOTE | 2023-02-03 03:21 | PC.NURSE ---
Addendum entered by Lion Antunez RN 02/03/23 05:41: TEMP DOWN TO 99.0 CORE WITH COOLING BLANKET..SAO2 IMPROVED TO 97%..AM H/H= 6.6/19.8..ICU PA UPDATED--FOR TYPE & SCREEN AND TO TRANSFUSE 1 UNIT PRBC..TO START DAILY PROTONIX IV Original Note: CARE ASSUMED 23:15...REMAINS INTUBATED/VCV VENT SUPPORT....RR 28-32 ON AC SETTINGS...SAO2 92-93%...CONTINUED PROPOFOL 50 MCG/KG/MIN & FENTANYL 200 MCG/HR & PRECIDEX 1.5 MCG/KG/HR..EMERGES FROM SEDATION WITH SEVERE AGITATION/ATTEMPTING TO SIT UP AND PULL ON LINES....PRN PROPOFOL PER SEP..ICU PA AWARE..TO CINUE TO UTILIZE PRN PROPOFOL AND TO ATTEMPT TO AVOID PARALYTICS...OG-TUBE FEEDS 20 CC/HR...350ml BILIOUS FEED ASPIRATE OBTAINED..FEEDS PLACED ON HOLD...T-MAX UP TO 103.5...TYLENOL LIQUIED PREVIOUSLY GIVEN APPROX 8PM..?ABSORBTION...TORADOL 15MG IV GIVEN PER PA FOR TEMP W/O EFFECT..PLACED ON WRAP AROUND COOLING BLANKET PER PA...CURRENTLY TEMP= 101.9 CORE AND TRENDING DOWNWARD...FEEDS REMAIN OFF--ADITIONAL 180ml BILIOUS ASPIRATE OBTAINED
[2023-02-03 05:03] LABS: VBG Base Excess 4.3 mmol/L; VBG HCO3 27 mmol/L (22-26); VBG pCO2 34 mmHg; VBG pO2 43 mmHg
[2023-02-03 05:18] LABS: MANUAL DIFF FLAG NO
[2023-02-03 05:21] LABS: Basophils Percent Auto 0.2 % (0-2); Imm Gran Abs Auto 0.22 X10*3/uL (0.00-0.03); Imm Gran Pct Auto 1.6 % (0.0-0.4); Lymphocytes Absolute Auto 1.4 X10*3/uL (1.2-4.9); Lymphocytes Percent Auto 10.3 % (20-40); Mean Corpuscular HGB Conc 33.3 g/dl (31.0-36.0); Mean Corpuscular Hemoglobin 27.3 pg (27.0-33.0); Mean Corpuscular Volume 81.8 fL (80.0-98.0); Mean Platelet Volume 12.1 fL (9.4-12.4); Monocytes Absolute Auto 0.5 X10*3/uL (0.1-1.2); Monocytes Percent Auto 3.8 % (2-11); Neutrophils Absolute Auto 11.7 x10*3/uL (2.0-8.3); Neutrophils Percent Auto 84.1 % (45-73); Red Blood Count 2.42 X10*6/uL (4.60-5.80); Red Cell Distribution Width 15.9 % (11.0-16.0); White Blood Count 13.9 X10*3/uL (4.8-10.8)
[2023-02-03 05:23] LABS: Hematocrit 19.8 % (42.0-52.0); Hemoglobin 6.6 g/dl (14.0-18.0); Platelet Count 99 X10*3/uL (160-400)
[2023-02-03 05:24] LABS: Venous Blood Gas Refer to POC result
[2023-02-03 05:40] LABS: Alanine Aminotransferase 45 U/L (0-40); Albumin Level 3.6 g/dL (3.5-5.0); Alkaline Phosphatase 107 U/L (39-117); Anion Gap 14 (12-20); Aspartate Amino Transferase 110 U/L (5-37); Bilirubin Total 2.1 mg/dL (0.0-1.0); Blood Urea Nitrogen 57 mg/dL (9-16); Calcium 8.7 mg/dL (8.4-10.2); Carbon Dioxide 25 mmol/L (22-29); Chloride 115 mmol/L (96-108); Creatinine Clr Calc Pharmacy 70.2; Estimated Glomerular Filt Rate > 60; Glucose Random 103 mg/dL (60-115); Magnesium 2.4 mg/dL (1.6-2.6); Phosphorus 3.4 mg/dL (2.7-4.5); Potassium 3.5 mmol/L (3.3-5.1); Sodium 150 mmol/L (135-145); Total Protein 6.1 g/dL (6.5-8.0)
--- NOTE | 2023-02-03 13:45 | PM.CCPN ---
Subjective Subjective Date of Service: 02/03/23 Interval History: 27-year-old gentleman admitted on 01/29/2023 with initial complaints of malaise and fever Secondary to staphylococcal bacteremia. On ER evaluation hypotensive with concern for sepsis with suboptimal response to initial IV fluid resuscitation requiring colloidal support. Also with polysubstance abuse/withdrawal. Admitted to intensive care unit and started broad-spectrum antibiotics. Further hospital course significant for MRSA endocarditis with large tricuspid vegetation, septic pulmonary emboli, MRSA pneumonia with cavitation, acute hypoxic respiratory failure requiring intubation on 02/01/2023. Erick on 02/02/2023 is negative for left-sided valvular vegetation. Extubated uneventfully on 02/03/2023. No events overnight. Critical Care Time (minutes): 45 Physical Exam Vital Signs: Vital Signs: Last Vital Signs Temp 101.7 F H 02/03/23 13:00 Pulse 109 H 02/03/23 13:00 Resp 29 H 02/03/23 13:29 BP 119/79 02/03/23 13:00 Pulse Ox 91 L 02/03/23 13:00 O2 Del Method Nasal Cannula 02/03/23 13:00 O2 Flow Rate 6 02/03/23 13:00 FiO2 40 02/03/23 09:00 BMI result Body Mass Index 25.3 Const: General: no acute distress, alert, awake and anxious Eyes: Sclerae: sclerae normal EOM: EOMs intact bilaterally Neck: Neck: Yes no lymphadenopathy, Yes trachea midline and Yes supple Resp: Effort & Inspection: normal respiratory effort and no respiratory distress Auscultation: crackles (Bilateral) Cardio: Rate: tachycardic Rhythm: regular rhythm Heart sounds: no gallops, no murmurs and no rubs GI: Palpation (GI): Soft to palpation and Other GI palpation findings present ( Nontender) Auscultation: normal bowel sounds Extrem: General: No clubbing, No cyanosis and Yes edema (1+ bilateral) Objective Data Labs 02/03/23 12:11 02/03/23 12:11 Labs: Laboratory Results - last 24 hr 02/02/23 02/03/23 02/03/23 18:56 04:54 04:57 WBC RBC Hgb Hct MCV MCH MCHC RDW Plt Count MPV Immature Gran % (Auto) Neut % (Auto) Lymph % (Auto) [place] % (Auto) Eos % (Auto) Baso % (Auto) Lymph # (Auto) [place] # (Auto) Eos # (Auto) Baso # (Auto) Abs Immat Gran (auto) Absolute Neuts (auto) Absolute Nucleated RBC Nucleated RBC % (auto) Smear Path Review VBG pH 7.50 H VBG pCO2 34 VBG pO2 43 VBG HCO3 27 H VBG O2 Saturation 66.0 VBG Base Excess 4.3 Sodium 150 H Potassium 3.5 Chloride 115 H Carbon Dioxide 25 Anion Gap 14 BUN 57 H Creatinine 1.30 Estim Creat Clear Calc 70.2 Estimated GFR > 60 Random Glucose 103 Calcium 8.7 Phosphorus 3.4 Magnesium 2.4 Total Bilirubin 2.1 H AST 110 H ALT 45 H Alkaline Phosphatase 107 Total Protein 6.1 L Albumin 3.6 Vancomycin Trough 16.6 Blood Type Antibody Screen Crossmatch 02/03/23 02/03/23 02/03/23 04:57 06:34 12:11 WBC 13.9 H RBC 2.42 L Hgb 6.6 L* 7.6 L Hct 19.8 L* 22.5 L MCV 81.8 MCH 27.3 MCHC 33.3 RDW 15.9 Plt Count 99 L D MPV 12.1 Immature Gran % (Auto) 1.6 H Neut % (Auto) 84.1 H Lymph % (Auto) 10.3 L [place] % (Auto) 3.8 Eos % (Auto) 0.0 Baso % (Auto) 0.2 Lymph # (Auto) 1.4 [place] # (Auto) 0.5 Eos # (Auto) 0.0 Baso # (Auto) 0.0 Abs Immat Gran (auto) 0.22 H Absolute Neuts (auto) 11.7 H Absolute Nucleated RBC 0.000 Nucleated RBC % (auto) 0.0 Smear Path Review SEE NOTE VBG pH VBG pCO2 VBG pO2 VBG HCO3 VBG O2 Saturation VBG Base Excess Sodium Potassium Chloride Carbon Dioxide Anion Gap BUN Creatinine Estim Creat Clear Calc Estimated GFR Random Glucose Calcium Phosphorus Magnesium Total Bilirubin AST ALT Alkaline Phosphatase Total Protein Albumin Vancomycin Trough Blood Type A Positive Antibody Screen NEGATIVE Crossmatch See Detail 02/03/23 12:11 WBC RBC Hgb Hct MCV MCH MCHC RDW Plt Count MPV Immature Gran % (Auto) Neut % (Auto) Lymph % (Auto) [place] % (Auto) Eos % (Auto) Baso % (Auto) Lymph # (Auto) [place] # (Auto) Eos # (Auto) Baso # (Auto) Abs Immat Gran (auto) Absolute Neuts (auto) Absolute Nucleated RBC Nucleated RBC % (auto) Smear Path Review VBG pH VBG pCO2 VBG pO2 VBG HCO3 VBG O2 Saturation VBG Base Excess Sodium 150 H Potassium 3.7 Chloride 118 H Carbon Dioxide 23 Anion Gap 13 BUN 50 H Creatinine 0.97 Estim Creat Clear Calc 94.0 Estimated GFR > 60 Random Glucose 77 Calcium 8.4 Phosphorus Magnesium Total Bilirubin AST ALT Alkaline Phosphatase Total Protein Albumin Vancomycin Trough Blood Type Antibody Screen Crossmatch Microbiology Microbiology Results: Microbiology 01/30/23 10:47 Blood - Venous Blood Culture - Final Methicillin Res Staph Aureus 01/30/23 10:48 Blood - Venous Blood Culture - Final Methicillin Res Staph Aureus 01/29/23 07:32 Blood - Venous Blood Culture - Final Staphylococcus aureus 01/29/23 07:22 Blood - Venous Blood Culture - Final Staphylococcus aureus 01/29/23 Unknown Urine clean catch - Urine wright top Urine Culture - Final No growth. Progress Note: A&P Assessment and plan (1) MRSA pneumonia: Status: Acute (2) MRSA bacteremia: Status: Acute (3) Tricuspid valve vegetation: Status: Acute (4) Endocarditis: Status: Acute (5) Acute respiratory failure with hypoxia: Status: Acute (6) Polysubstance abuse: Status: Acute Plan Assessment: 27-year-old gentleman admitted with sepsis likely secondary to bacteremia with possible endocarditis further complicated by polysubstance abuse and acute renal failure. Plan: Neuro: Polysubstance abuse and withdrawal. Cardiac: Septic shock, resolved, titrated off pressors. MRSA endocarditis with tricuspid vegetation and septic emboli. Cardiology service care appreciated. Planned for ERICK. Pulmonary: Subsegmental embolus not requiring anticoagulation. MRSA pneumonia with cavitation resulting in acute hypoxic respiratory failure. Extubated 02/03/2023. Continue to titrate off supplemental oxygen as tolerated. Renal: Acute renal failure secondary to sepsis, improving. Non oliguric. Continue to monitor renal indices and urine output. Endo: No acute issues. GI: No acute issues. ID: Sepsis, MRSA bacteremia, endocarditis. Continue vancomycin. Heme/Onc: Thrombocytopenia secondary to sepsis, improving. Psych: No acute issues. Miscellaneous: No acute issues. Prophylaxis: Heparin Diet: Regular Critical care time spent: 45 minutes Quality Stroke Does the patient have a stroke diagnosis?: No VTE Prior VTE?: No VTE Risk Level:: Medical - moderate - high VTE Device Contraindication: N/A - Device Ordered VTE Drug Contraindication: N/A - Med Ordered
[2023-02-03] MEDS: HYDROmorphone HCl 2 MG/ML VIAL IVPUSH ×3 (14:49→22:33)
--- NOTE | 2023-02-03 15:32 | MHC.RECOVRN ---
Addendum entered by Christine Grande RN 02/03/23 16:56: This marine underwriter checked on pt, pt moaning, wailing when this marine underwriter entered the room, facial grimacing pt reports meds did not do anything/help. Pt reports diffuse body pain. Reviewed plan with patient, patient to receive 55mg MTD dose tomorrow a.m. Pt states prior to missing doses of MTD and being tappered to 40mg for missed doses, was stable on 80mg MTD. Original Note: This marine underwriter met with patient after addiction consult was placed. Upon entering room, patient moaning, facial grimacing, pt reports diffuse body pain, anxiety, visibly diaphoretic. Pt reports its difficult to discern withdrawal as feels terrible all over, pt reports feeling overwhelmed almost , feels like could wail with pain . Discussed findings with Provider MENDOZA Huizar ordered 10mg MTD.
[2023-02-03] MEDS: ondansetron HCL 4 MG/2 ML VIAL IVPUSH ×2 (15:45→21:59)
[2023-02-03] MEDS: Lidocaine 4 % Patch ADH..PATCH 1 PATCH TRANSDERMA (16:35)
--- NOTE | 2023-02-03 16:50 | PC.NURSE ---
Restless, moaning aloud, anxious, c/o lt upper abdominal pain , abdomen is semi firm , per [employer] report pt has 4 loose BM's today. Seen by addiction medicine nurse, additional dose methadone ordered today, lorazepam prn , clonidine. Lidocaine patch ordered by Hospitalist . Pt is c/o lt flank pain and requested to apply lidocaine to lt flank. KUB was done , pt is back to his room 462, still very restless ,moaning ,stated that he doesnt' feel better after all the medications he received
--- NOTE | 2023-02-03 19:20 | PC.NURSE ---
Assumed care at 07:00. Patient was initially on maximal sedation with gtts of Fentanyl, Propofol, and Precedex, but still having breakthrough agitation, requiring IVP propofol. Patient on ventilator, ETT at 25 cm, AC settings on ventilator. Patient was successfully extubated at 09:40 to 2 LPM, sedation turned off, with fentanyl gtt left running at 50% dose briefly, passed bedside swallow eval, then weaned off as patient was given PO methadone. Patient also started regular diet and tolerated it, but then developed LUQ pain. SR on tele with prolonged QTc. Patient continued to complain of pain, generalized pain, then headache, LUQ abdominal pain, chest pain with assessment limited by patient's unwillingness to answer questions, MD aware and no EKG at this time. Patient was administered 2 x 1 mg doses of dilaudid IVP with good effect, as well as a new 2 mg Q4 hr PRN dilaudid order before his transfer to the [facility] floor. Patient complained of new left upper quadrant pain upon transfer, this was medicated with 2 MG IVP dilaudid, and in nursing report to receiving RN and charge loader, explained to receiving RN with receiving RN following up. After extubation, patient was very thirsty, and given water as indicated. Patient also with behavioral issues, yelling, wailing, outburts. MD aware.
[2023-02-03 19:30] LABS: Vancomycin Random 11.8 mcg/mL (15-20)
--- NOTE | 2023-02-03 19:49 | HE.PHANOTE ---
RE: VANCO Patients level came back at 11.8 this evening. Patients renal function did worsen, Scr at 1.30 from 1.17. Rxinsight suggest 1250 mg Q12H is supra therapeutic. Suspecting due to renal function. Will keep at 1000 mg Q12H and get random 02/04 @1900. Predicted AUC 522 mg/L/hr
--- NOTE | 2023-02-03 20:07 | PC.NURSE ---
Dr Lainez was notified about KUB results , no intervention at this time
--- NOTE | 2023-02-03 20:09 | PC.NURSE ---
abdomen distended , hypoactive BS , had loose stool, not pasing flatus , c/o lt upper abdominal pain and lt flank pain , medicated with dilauded IV, DR Carter was notified . Will keep pt NPO
[2023-02-04] VITALS (9 sets, daily range): BP systolic 119–131; BP diastolic 59–77; PULSE 92–100; RESP 16–20; TEMP 37.1–39.4; O2SAT 93–98; BMI 25.5
[2023-02-04] MEDS: HYDROmorphone HCl 2 MG/ML VIAL IVPUSH ×5 (02:33→22:10)
[2023-02-04 07:40] LABS: Hematocrit 22.9 % (42.0-52.0); Hemoglobin 7.9 g/dl (14.0-18.0); Mean Corpuscular HGB Conc 34.5 g/dl (31.0-36.0); Mean Corpuscular Hemoglobin 27.7 pg (27.0-33.0); Mean Corpuscular Volume 80.4 fL (80.0-98.0); PLT CLUMP 1; Red Blood Count 2.85 X10*6/uL (4.60-5.80); Red Cell Distribution Width 15.8 % (11.0-16.0)
[2023-02-04 08:13] LABS: Platelet Count 143 X10*3/uL (160-400); White Blood Count 18.9 X10*3/uL (4.8-10.8)
[2023-02-04 08:44] LABS: Anion Gap 17 (12-20); Blood Urea Nitrogen 32 mg/dL (9-16); Calcium 9.1 mg/dL (8.4-10.2); Carbon Dioxide 18 mmol/L (22-29); Chloride 118 mmol/L (96-108); Creatinine Clr Calc Pharmacy 128.5; Estimated Glomerular Filt Rate > 60; Glucose Fasting 70 mg/dL (60-99); Potassium 4.7 mmol/L (3.3-5.1); Sodium 148 mmol/L (135-145)
[2023-02-04] MEDS: Lidocaine 4 % Patch ADH..PATCH 1 PATCH TRANSDERMA (08:44)
--- NOTE | 2023-02-04 10:26 | MHC.CM.PN ---
Per ROUNDS discussion, Patient just down to 4th floor from ICU and Patient is not yet medically cleared for dc.STR pending PT eval is the tentative plan and CM will follow.
--- NOTE | 2023-02-04 10:27 | HO.PM.IMPN ---
Subjective Subjective Date of Service: 02/04/23 Interval History: thristy Physical Exam Vital Signs: Vital Signs: Last Vital Signs Temp 99.9 F 02/04/23 07:32 Pulse 97 02/04/23 07:32 Resp 20 02/04/23 07:32 BP 122/62 02/04/23 07:32 Pulse Ox 98 02/04/23 07:32 O2 Del Method Nasal Cannula 02/04/23 07:32 O2 Flow Rate 2 02/04/23 07:32 FiO2 40 02/03/23 09:00 BMI result Body Mass Index 25.5 ill appearing, diaphoretic, alert oriented times 3, crackles bilateral, murmur, Objective Data Active Medications Acetaminophen (Acetaminophen 325 Mg Tablet) 650 mg PO Q6H PRN PRN Reason: Mild pain or fever Last Admin: 02/03/23 13:44 Dose: 650 mg Documented By: PARKER Albuterol Sulfate (Albuterol Sulfate (0.083%) 2.5 Mg/3 Ml Vial.Neb) 2.5 mg INHALE RQ4H PRN PRN Reason: Wheezing Last Admin: 02/02/23 21:39 Dose: 2.5 mg Documented By: JUSTINO Clonidine HCl (Clonidine Hcl 0.1 Mg Tablet) 0.1 mg PO TID ODESSA; Protocol Last Admin: 02/04/23 08:44 Dose: 0.1 mg Documented By: MELVIN Hydromorphone HCl (Hydromorphone Hcl 2 Mg/Ml Vial) 2 mg IVPUSH Q4H PRN; Protocol PRN Reason: Pain, Moderate(Pain Scale 4-6) Last Admin: 02/04/23 07:36 Dose: 2 mg Documented By: MELVIN Vancomycin HCl 1,000 mg/ (Sodium Chloride) 270 mls @ 270 mls/hr IV Q12H ODESSA Last Infusion: 02/04/23 10:10 Dose: 0 mls/hr Documented By: MELVIN Lidocaine (Lidocaine 4 % Patch Adh..Patch) 1 patch TRANSDERMA DAILY [facility]; Protocol Last Admin: 02/04/23 08:44 Dose: 1 patch Documented By: MELVIN Lorazepam (Lorazepam 1 Mg Tablet) 1 mg PO Q6H PRN PRN Reason: anxiety/restlessness Last Admin: 02/03/23 21:59 Dose: 1 mg Documented By: ADONIS Methadone HCl (Methadone Hcl 20 Mg/2 Ml Oral.Conc) 55 mg PO DAILY [facility] Last Admin: 02/04/23 08:45 Dose: 55 mg Documented By: MELVIN Ondansetron HCl (Ondansetron Hcl 4 Mg/2 Ml Vial) 4 mg IVPUSH Q6H PRN PRN Reason: Nausea Last Admin: 02/03/23 21:59 Dose: 4 mg Documented By: ADONIS Pantoprazole Sodium (Pantoprazole Sodium 40 Mg/10 Ml Vial) 40 mg IVPUSH DAILY@0630 [facility] Last Admin: 02/04/23 06:17 Dose: 40 mg Documented By: SAM Pharmacy Consult (Consult Rx Vancomycin Dosing) 1 each MISCELLANE DAILY PRN PRN Reason: Consult order Labs 02/04/23 07:16 02/04/23 07:16 Labs: Laboratory Results - last 24 hr 02/03/23 02/03/23 02/03/23 04:57 04:57 12:11 MCV MCH MCHC RDW Plt Count MPV Absolute Nucleated RBC Nucleated RBC % (auto) Smear Path Review SEE NOTE Anion Gap 14 13 Estim Creat Clear Calc 70.2 94.0 Estimated GFR > 60 > 60 Random Glucose 103 77 Fasting Glucose Calcium 8.7 8.4 Phosphorus 3.4 Magnesium 2.4 Total Bilirubin 2.1 H AST 110 H ALT 45 H Alkaline Phosphatase 107 Total Protein 6.1 L Albumin 3.6 Random Vancomycin 02/03/23 02/04/23 02/04/23 19:04 07:16 07:16 MCV 80.4 MCH 27.7 MCHC 34.5 RDW 15.8 Plt Count 143 L D MPV Not Reportable Absolute Nucleated RBC 0.000 Nucleated RBC % (auto) 0.0 Smear Path Review Anion Gap 17 Estim Creat Clear Calc 128.5 Estimated GFR > 60 Random Glucose Fasting Glucose 70 Calcium 9.1 D Phosphorus Magnesium Total Bilirubin AST ALT Alkaline Phosphatase Total Protein Albumin Random Vancomycin 11.8 L Assessment and Plan (1) MRSA pneumonia: Status: Acute Plan 27M polysubstance dependence presented on 01/29/23 with malaise and fever. found to be in septic shock due to MRSA bacteremia with large tricuspid vegetation, required pressor support, course complciated by opiate withdrawal, acute hypoxic respiratory failure requiring intubation, extubated 7/6/23 and downgraded to medical floor Acute hypoxic respiratory failure, septic shock due to MRSA tricuspid valve endocarditis with bacteremia and septic pulmonary emboli in a patient who uses IV drugs Continue vancomycin, follow-up cultures, follow-up id eval Wean O2 as tolerated Opiate dependence with withdrawal Addiction team following Continue opiate supplement Acute kidney injury Resolved Hypernatremia Encourage free fluids Monitor Anemia of inflammation Monitor Ileus Clear liquids, encourage ambulation dvt prophylaxis - lovenox full code reason for continued hospitalization: awaiting culture clearance Time Spent With Patient Time: Total time managing care of this patient today ____ minutes. Quality Stroke Does the patient have a stroke diagnosis?: No VTE Prior VTE?: No VTE Risk Level:: Medical - moderate - high VTE Device Contraindication: N/A - Device Ordered VTE Drug Contraindication: N/A - Med Ordered
--- NOTE | 2023-02-04 11:13 | MHC.CLN ---
F/U PT TRANSFERRED TO MEDICAL FLOOR FROM ICU EXTUBATED 02/03/23 DIET ADVANCED TO CLEARS TODAY RECOMMEND ADDING ENSURE CLEAR TO INCREASE PO SUPP TO PROVIDE 720KCALS, 24G PROTEIN MONITOR PO INTAKE CLOSELY
[2023-02-04] MEDS: Enoxaparin Sodium 40 MG/0.4 ML SYRINGE SUBCUT (11:21)
--- NOTE | 2023-02-04 12:11 | PM.PNCARD ---
Subjective Subjective Date of Service: 02/04/23 Interval history: He is now extubated. Has been transferred from ICU to the floor. Has some pleuritic-type chest pains and he states his chest hurts when he is breathing but otherwise seems to be okay. Overall, much more stable now than before. Review of Systems Review of Systems Yes all other systems are reviewed and are negative Constitutional: Reports as per HPI and Reports no additional constitutional complaints Eyes: Reports as per HPI and Denies no additional eye complaints Denies system reviewed and no additional complaints, except as documented and Reports as per HPI Cardiovascular: Reports as per HPI, Reports no additional cardiovascular complaints, Denies acrocyanosis, Denies cool extremities, Denies chest pain, Denies leg edema, Denies lightheadedness, Denies palpitations and Denies dyspnea Respiratory: Reports as per HPI, Denies no additional respiratory complaints, Reports pain on inspiration and Denies dyspnea Gastrointestinal: Reports as per HPI and Denies no additional gastrointestinal complaints Genitourinary: Reports no additional male genitourinary complaints and Reports as per HPI Musculoskeletal: Reports no additional musculoskeletal complaints and Reports as per HPI Skin/Breast: Reports system reviewed and no additional complaints, except as docu Reports system reviewed and no additional complaints, except as documented and Reports as per HPI Psychiatric: Reports no additional psychiatric complaints and Reports as per HPI Endocrine: Reports no additional endocrine complaints, Reports as per HPI and Denies palpitations Hematologic/Lymphatic: Reports no additional hematologic/lymphatic complaints and Reports as per HPI Allergic/Immunologic: Reports no additional allergic/immunologic complaints and Reports as per HPI Physical Exam Vital Signs: Last Vital Signs Temp 98.8 F 02/04/23 11:31 Pulse 97 02/04/23 11:31 Resp 20 02/04/23 11:31 BP 119/59 L 02/04/23 11:31 Pulse Ox 94 02/04/23 11:31 O2 Del Method Nasal Cannula 02/04/23 11:31 O2 Flow Rate 2 02/04/23 11:31 FiO2 40 02/03/23 09:00 BMI result Body Mass Index 25.5 Const General: comfortable and no acute distress Orientation/consciousness: patient oriented x3 HEENT Other: Unremarkable Head: Yes normal to inspection Neck Neck: Yes normal visual inspection Chest Chest palpation & inspection: normal inspection of the chest Resp Auscultation: clear to auscultation bilaterally Cardio Palpation: normal PMI Heart sounds: S1 normal heart sound present, S2 normal heart sound present, no gallops, Murmur heart sound present systolic II/ and at the left sternal border and no rubs GI Palpation (GI): Soft to palpation Back/Spine/Pelvis Other: unremarkable Skin General skin exam: no rashes or lesions noted Neuro General: patient oriented x3 Extrem General: Yes normal to inspection Psych Mental Status: mental status grossly normal Objective Labs and Meds 02/04/23 07:16 02/04/23 07:16 Lab results: Laboratory Results - last 24 hr 02/03/23 02/03/23 02/03/23 04:57 12:11 12:11 WBC RBC Hgb 7.6 L Hct 22.5 L MCV MCH MCHC RDW Plt Count MPV Absolute Nucleated RBC Nucleated RBC % (auto) Sodium 150 H 150 H Potassium 3.5 3.7 Chloride 115 H 118 H Carbon Dioxide 25 23 Anion Gap 14 13 BUN 57 H 50 H Creatinine 1.30 0.97 Estim Creat Clear Calc 70.2 94.0 Estimated GFR > 60 > 60 Random Glucose 103 77 Fasting Glucose Calcium 8.7 8.4 Phosphorus 3.4 Magnesium 2.4 Total Bilirubin 2.1 H AST 110 H ALT 45 H Alkaline Phosphatase 107 Total Protein 6.1 L Albumin 3.6 Random Vancomycin 02/03/23 02/04/23 02/04/23 19:04 07:16 07:16 WBC 18.9 H RBC 2.85 L Hgb 7.9 L Hct 22.9 L MCV 80.4 MCH 27.7 MCHC 34.5 RDW 15.8 Plt Count 143 L D MPV Not Reportable Absolute Nucleated RBC 0.000 Nucleated RBC % (auto) 0.0 Sodium 148 H Potassium 4.7 D Chloride 118 H Carbon Dioxide 18 L Anion Gap 17 BUN 32 H Creatinine 0.71 Estim Creat Clear Calc 128.5 Estimated GFR > 60 Random Glucose Fasting Glucose 70 Calcium 9.1 D Phosphorus Magnesium Total Bilirubin AST ALT Alkaline Phosphatase Total Protein Albumin Random Vancomycin 11.8 L Imaging Radiologist's impression: Impressions KUB X-Ray 02/03/23 16:11 IMPRESSION: Air-filled slightly distended stomach and colon probably representing an ileus. Central location of bowel loops are questionable for ascites. No ascites seen on prior CT scan 01/29/2023. Increasing nodular opacities at the lung bases from recent exams. Progress Note: A&P Assessment and plan (1) MRSA bacteremia: Status: Acute (2) Endocarditis: Status: Acute (3) Polysubstance abuse: Status: Acute Plan Patient had a transesophageal echocardiogram in the ICU while he was intubated. Additionally, repeat transthoracic echocardiogram today. Overall, he has tricuspid valve vegetation/endocarditis. Initially, we thought he had severe tricuspid regurgitation but believe is no more than moderate. There is no evidence of other complications like perforation the valve or abscess. There is no evidence of right heart dysfunction. Hemodynamically he is fairly stable. Last set of blood cultures positive from the 2nd for MRSA. Culture from today still pending. In the chest CTA, suspicion for septic emboli. Concern for pulmonary arterial hypertension. Lab data reviewed. He still has leukocytosis, some anemia. Thrombocytopenia is improved. Tox screen positive for opiates, fentanyl, cocaine. Overall, continue to treat with antibiotics aggressively. No indication for cardiac surgical intervention at this time. Discussed with . Time Spent With Patient Time: Total time managing care of this patient today ____ minutes. Progress Note: Quality Stroke Does the patient have a stroke diagnosis?: No Procedures Date of Service Date of Service: 02/04/23
--- NOTE | 2023-02-04 13:45 | HO.ADDICTPRO ---
Subjective Subjective Date of Service: 02/04/23 Reason For Visit: TV endocarditis Interim History: Patient is a 27 year old male with OUD currently medically admitted with endocarditis and septic emboli. Transferred to telemetry unit on 02/03 from ICU. Started on methadone 40mg QD by filter press operator. Seen by pillowcase turner on 02/03 and noted to be diaphoretic, anxious, restless and c/o overall pain and anxiety. Additional 10mg methadone ordered and administered. Clonidine TID scheduled and PRN lorazepam ordered. Patient seen this morning in follow up. Laying in bed, awake, alert, pleasant. When asked regarding withdrawal sx, patient states he is unable to decipher if he is feeling withdrawal or just overall terrible . He reports he was recently engaged in treatment for OUD with YASMANY Finch. OTP--dose was at 80mg, but due to missed appts., dose was decreased to 40mg. He reports using btwn 1-2 bundles of heroin/fentanyl IV QD prior to admission. Interview ended by this song writer as patient appearing SOB and increasingly uncomfortable with talking. Review of Systems Acute medical concerns: Yes Review of Systems Constitutional: Reports as per HPI Mental Status Exam Mental Status Exam Patient Appearance: Fatigued Patient Orientation: Person, Place, Time and Situation Level of Consciousness: Awake Mood Description: Anxious Affect Description: Anxious Diagnostics Vital Signs (24Hr): Vital Signs - 24 hr 02/03/23 14:49 02/03/23 14:57 02/03/23 15:02 Temperature 102.6 F H 98.4 F Pulse Rate 113 H Respiratory Rate 23 H 20 Blood Pressure 134/79 Pulse Oximetry 94 Oxygen Delivery Method Nasal Cannula Oxygen Flow Rate 2 02/03/23 15:53 02/03/23 17:00 02/03/23 19:37 Temperature 100.6 F H 99.2 F Pulse Rate 107 H 102 H 86 Respiratory Rate 28 H 24 H Blood Pressure 134/74 123/66 Pulse Oximetry 92 96 Oxygen Delivery Method Nasal Cannula Nasal Cannula Oxygen Flow Rate 3 96 02/03/23 23:41 02/04/23 03:33 02/04/23 07:32 Temperature 99.4 F 100.5 F H 99.9 F Pulse Rate 92 93 97 Respiratory Rate 20 18 20 Blood Pressure 131/68 129/67 122/62 Pulse Oximetry 96 97 98 Oxygen Delivery Method Nasal Cannula Nasal Cannula Nasal Cannula Oxygen Flow Rate 3 4 2 02/04/23 11:31 Temperature 98.8 F Pulse Rate 97 Respiratory Rate 20 Blood Pressure 119/59 L Pulse Oximetry 94 Oxygen Delivery Method Nasal Cannula Oxygen Flow Rate 2 BMI result Body Mass Index 25.5 Labs 02/04/23 07:16 02/04/23 07:16 Labs: Laboratory Results - last 48 hr 02/02/23 02/03/23 02/03/23 18:56 04:54 04:57 WBC RBC Hgb Hct MCV MCH MCHC RDW Plt Count MPV Immature Gran % (Auto) Neut % (Auto) Lymph % (Auto) [place] % (Auto) Eos % (Auto) Baso % (Auto) Lymph # (Auto) [place] # (Auto) Eos # (Auto) Baso # (Auto) Abs Immat Gran (auto) Absolute Neuts (auto) Absolute Nucleated RBC Nucleated RBC % (auto) Smear Path Review VBG pH 7.50 H VBG pCO2 34 VBG pO2 43 VBG HCO3 27 H VBG O2 Saturation 66.0 VBG Base Excess 4.3 Sodium 150 H Potassium 3.5 Chloride 115 H Carbon Dioxide 25 Anion Gap 14 BUN 57 H Creatinine 1.30 Estim Creat Clear Calc 70.2 Estimated GFR > 60 Random Glucose 103 Fasting Glucose Calcium 8.7 Phosphorus 3.4 Magnesium 2.4 Total Bilirubin 2.1 H AST 110 H ALT 45 H Alkaline Phosphatase 107 Total Protein 6.1 L Albumin 3.6 Vancomycin Trough 16.6 Random Vancomycin Blood Type Antibody Screen Crossmatch 02/03/23 02/03/23 02/03/23 04:57 06:34 12:11 WBC 13.9 H RBC 2.42 L Hgb 6.6 L* 7.6 L Hct 19.8 L* 22.5 L MCV 81.8 MCH 27.3 MCHC 33.3 RDW 15.9 Plt Count 99 L D MPV 12.1 Immature Gran % (Auto) 1.6 H Neut % (Auto) 84.1 H Lymph % (Auto) 10.3 L [place] % (Auto) 3.8 Eos % (Auto) 0.0 Baso % (Auto) 0.2 Lymph # (Auto) 1.4 [place] # (Auto) 0.5 Eos # (Auto) 0.0 Baso # (Auto) 0.0 Abs Immat Gran (auto) 0.22 H Absolute Neuts (auto) 11.7 H Absolute Nucleated RBC 0.000 Nucleated RBC % (auto) 0.0 Smear Path Review SEE NOTE VBG pH VBG pCO2 VBG pO2 VBG HCO3 VBG O2 Saturation VBG Base Excess Sodium Potassium Chloride Carbon Dioxide Anion Gap BUN Creatinine Estim Creat Clear Calc Estimated GFR Random Glucose Fasting Glucose Calcium Phosphorus Magnesium Total Bilirubin AST ALT Alkaline Phosphatase Total Protein Albumin Vancomycin Trough Random Vancomycin Blood Type A Positive Antibody Screen NEGATIVE Crossmatch See Detail 02/03/23 02/03/23 02/04/23 12:11 19:04 07:16 WBC 18.9 H RBC 2.85 L Hgb 7.9 L Hct 22.9 L MCV 80.4 MCH 27.7 MCHC 34.5 RDW 15.8 Plt Count 143 L D MPV Not Reportable Immature Gran % (Auto) Neut % (Auto) Lymph % (Auto) [place] % (Auto) Eos % (Auto) Baso % (Auto) Lymph # (Auto) [place] # (Auto) Eos # (Auto) Baso # (Auto) Abs Immat Gran (auto) Absolute Neuts (auto) Absolute Nucleated RBC 0.000 Nucleated RBC % (auto) 0.0 Smear Path Review VBG pH VBG pCO2 VBG pO2 VBG HCO3 VBG O2 Saturation VBG Base Excess Sodium 150 H Potassium 3.7 Chloride 118 H Carbon Dioxide 23 Anion Gap 13 BUN 50 H Creatinine 0.97 Estim Creat Clear Calc 94.0 Estimated GFR > 60 Random Glucose 77 Fasting Glucose Calcium 8.4 Phosphorus Magnesium Total Bilirubin AST ALT Alkaline Phosphatase Total Protein Albumin Vancomycin Trough Random Vancomycin 11.8 L Blood Type Antibody Screen Crossmatch 02/04/23 07:16 WBC RBC Hgb Hct MCV MCH MCHC RDW Plt Count MPV Immature Gran % (Auto) Neut % (Auto) Lymph % (Auto) [place] % (Auto) Eos % (Auto) Baso % (Auto) Lymph # (Auto) [place] # (Auto) Eos # (Auto) Baso # (Auto) Abs Immat Gran (auto) Absolute Neuts (auto) Absolute Nucleated RBC Nucleated RBC % (auto) Smear Path Review VBG pH VBG pCO2 VBG pO2 VBG HCO3 VBG O2 Saturation VBG Base Excess Sodium 148 H Potassium 4.7 D Chloride 118 H Carbon Dioxide 18 L Anion Gap 17 BUN 32 H Creatinine 0.71 Estim Creat Clear Calc 128.5 Estimated GFR > 60 Random Glucose Fasting Glucose 70 Calcium 9.1 D Phosphorus Magnesium Total Bilirubin AST ALT Alkaline Phosphatase Total Protein Albumin Vancomycin Trough Random Vancomycin Blood Type Antibody Screen Crossmatch Imaging Radiology Impressions: ITS Impressions Chest X-Ray 01/29/23 07:47 IMPRESSION: Multifocal regions of disease which may be related to multifocal pneumonitis. Abdomen/Pelvis CT 01/29/23 08:33 IMPRESSION: 1. Appendix not clearly visualized. However, no inflammatory changes in the right lower quadrant. 2. Numerous patchy and nodular opacities noted throughout the partially visualized right and left lung. Possible cavitation of one of the small left basilar nodular opacities. The appearance is nonspecific. This most likely reflect an infectious or inflammatory process. The overall appearance raises the question of septic emboli neoplasm cannot be excluded but is thought to be much less likely. Fleischner guidelines were followed. Pulmonary Perfusion Imaging 01/29/23 11:00 IMPRESSION: Matched perfusion and chest x-ray findings. Findings are indeterminate. However there are peripheral filling defects in both superior segment lower lobe. Findings are suspicious for PE. Chest CTA 01/30/23 10:38 IMPRESSION: 1. A short segment subsegmental clot is newly identified in the left lower lobe. No large central or segmental pulmonary emboli. Technically limited exam. Recommend bilateral leg ultrasound. 2. Multiple ill-defined progressive pulmonary nodules, at least one with cavitation. Leading differential considerations include necrotizing vasculitis such as Taqueria's granulomatosis or septic emboli. Recommend immediate vasculitis workup. Recommend blood cultures and echocardiography. Lymphoma/leukemia is an additional consideration. This severe rapidly progressive diffuse lung disease is almost certainly the cause of the patient's symptoms and elevated d-dimer. 3. Pulmonary arterial hypertension. Evidence of increased right heart pressures. Recommend echocardiography. 4. New bilateral multifocal consolidation primarily seen posteriorly. New bilateral right greater than left effusions. Aspiration pneumonia or hemorrhage are considerations. 5. Hepatosplenomegaly. VTE: positive Chest X-Ray 02/01/23 05:03 IMPRESSION: * Left internal jugular triple lumen catheter terminates in the mid SVC. * Worsening bilateral multifocal patchy airspace opacities. Head CT 02/01/23 11:57 IMPRESSION: No acute intracranial hemorrhage or territorial infarction. No acute findings. Chest X-Ray 02/01/23 17:26 IMPRESSION: 1. Endotracheal tube 4 cm above the edilberto. 2. Left IJ catheter tip at caval atrial junction. 3. Nasogastric tube in stomach. 4. Persistent extensive bilateral airspace opacities. Chest X-Ray 02/02/23 11:52 IMPRESSION: Enteric catheter seen traversing to the stomach. Some improvement in bilateral interstitial and airspace disease since yesterday's study. KUB X-Ray 02/03/23 16:11 IMPRESSION: Air-filled slightly distended stomach and colon probably representing an ileus. Central location of bowel loops are questionable for ascites. No ascites seen on prior CT scan 01/29/2023. Increasing nodular opacities at the lung bases from recent exams. Medications Medications Current Medications Acetaminophen (Acetaminophen 325 Mg Tablet) 650 mg PO Q6H PRN PRN Reason: Mild pain or fever Last Admin: 02/03/23 13:44 Dose: 650 mg Albuterol Sulfate (Albuterol Sulfate (0.083%) 2.5 Mg/3 Ml Vial.Neb) 2.5 mg INHALE RQ4H PRN PRN Reason: Wheezing Last Admin: 02/02/23 21:39 Dose: 2.5 mg Clonidine HCl (Clonidine Hcl 0.1 Mg Tablet) 0.1 mg PO TID [facility]; Protocol Last Admin: 02/04/23 08:44 Dose: 0.1 mg Enoxaparin Sodium (Enoxaparin Sodium 40 Mg/0.4 Ml Syringe) 40 mg SUBCUT Q24H [facility] Last Admin: 02/04/23 11:21 Dose: 40 mg Hydromorphone HCl (Hydromorphone Hcl 2 Mg/Ml Vial) 2 mg IVPUSH Q4H PRN; Protocol PRN Reason: Pain, Moderate(Pain Scale 4-6) Last Admin: 02/04/23 07:36 Dose: 2 mg Vancomycin HCl 1,000 mg/ (Sodium Chloride) 270 mls @ 270 mls/hr IV Q12H O[facility] Last Infusion: 02/04/23 10:10 Dose: Infused Lidocaine (Lidocaine 4 % Patch Adh..Patch) 1 patch TRANSDERMA DAILY [facility]; Protocol Last Admin: 02/04/23 08:44 Dose: 1 patch Lorazepam (Lorazepam 1 Mg Tablet) 1 mg PO Q6H PRN PRN Reason: anxiety/restlessness Last Admin: 02/03/23 21:59 Dose: 1 mg Methadone HCl (Methadone Hcl 20 Mg/2 Ml Oral.Conc) 55 mg PO DAILY [facility] Last Admin: 02/04/23 08:45 Dose: 55 mg Ondansetron HCl (Ondansetron Hcl 4 Mg/2 Ml Vial) 4 mg IVPUSH Q6H PRN PRN Reason: Nausea Last Admin: 02/03/23 21:59 Dose: 4 mg Pharmacy Consult (Consult Rx Vancomycin Dosing) 1 each MISCELLANE DAILY PRN PRN Reason: Consult order Allergies Allergies Allergy/AdvReac Type Severity Reaction Status Date / Time tree nut [TREE NUT] Allergy Unknown ANAPHYLAXIS Verified 11/06/22 01:11 Assessment & Plan Assessment & Plan (1) Opioid use disorder: Status: Acute Code(s): F11.90 - Opioid use, unspecified, uncomplicated Assessment and Plan: methadone 55mg today increase to 60mg tomorrow and hold here over the wkend will eventually change clonidine to PRN pillowcase turner will check in over the wkend Total time managing care of this patient today ____ minutes.
--- NOTE | 2023-02-04 16:06 | W.PM.IDCN ---
History of Present Illness Data of Consult Service Date: 02/04/23 Requesting physician: Miguel Lainez Primary Care Provider: DO CHICHI Manrique Reason for consult: MRSA bacteremia He presents with fever for a week and fatigue. He has MRSA bacteremia on 01/30. He has 3.5 cm vegetation on tricuspid valve and not felt to be operable per Cardiology. He has unknown HIV or Hepatitis C status. He injects IV drugs. Review of Systems Review of Systems: Yes all other systems are reviewed and are negative PMFSH Family History Family history: reviewed and not pertinent Social History Social History Household Members: Friend(s) Housing: Apartment Do you presently have visiting nurse or other home services: No Patient Tobacco Use Status: Current everyday Tobacco user Tobacco use type: Cigarette Cigarette Packs Per Day: 1 Cigarettes Per Day: 20.0 Smoked in Last 30 Days: Yes e-Cigarette/Vaping Use: Currently Using Patient Interested in Nicotine Replacement: Yes Patient Given Instructions on How to Stop Smoking: Yes Date Education Initiated: 01/29/23 Second Hand Smoke Exposure: Yes Use of substances other than those prescribed or required for medical reasons: Yes Substance Use Type: Crack/Cocaine, IV Drugs and Opiates Substance Use Frequency: Daily Last Used Substance: Just Prior to Admission Currently Displaying Signs/Symptoms of Drug Intoxication Withdrawal: No Any prior treatment program specific to substance use: Yes Have you been hit, kicked, punched, or otherwise hurt by someone within the past year? If so, by whom?: No Do you feel safe in your current relationship?: No Current Relationship Is there a partner from a previous relationship who is making you feel unsafe now?: No Are you made to feel afraid or neglected: No Spiritual Healthcare Practices: unable to respond Advance Directives: No Advance Directives Information Provided: Yes Advance Directives on File: No Recently lost weight without trying: Unsure Nutrition Risks: Dental problems and Difficulty chewing Poor oral hygiene: Yes service: No Meds Allergies Allergy/AdvReac Type Severity Reaction Status Date / Time tree nut [TREE NUT] Allergy Unknown ANAPHYLAXIS Verified 11/06/22 01:11 Active Medications: Current Medications Acetaminophen (Acetaminophen 325 Mg Tablet) 650 mg PO Q6H PRN PRN Reason: Mild pain or fever Last Admin: 02/03/23 13:44 Dose: 650 mg Albuterol Sulfate (Albuterol Sulfate (0.083%) 2.5 Mg/3 Ml Vial.Neb) 2.5 mg INHALE RQ4H PRN PRN Reason: Wheezing Last Admin: 02/02/23 21:39 Dose: 2.5 mg Clonidine HCl (Clonidine Hcl 0.1 Mg Tablet) 0.1 mg PO TID [facility]; Protocol Last Admin: 02/04/23 14:11 Dose: 0.1 mg Enoxaparin Sodium (Enoxaparin Sodium 40 Mg/0.4 Ml Syringe) 40 mg SUBCUT Q24H [facility] Last Admin: 02/04/23 11:21 Dose: 40 mg Hydromorphone HCl (Hydromorphone Hcl 2 Mg/Ml Vial) 2 mg IVPUSH Q4H PRN; Protocol PRN Reason: Pain, Moderate(Pain Scale 4-6) Last Admin: 02/04/23 14:11 Dose: 2 mg Vancomycin HCl 1,000 mg/ (Sodium Chloride) 270 mls @ 270 mls/hr IV Q12H [facility] Last Infusion: 02/04/23 10:10 Dose: Infused Lidocaine (Lidocaine 4 % Patch Adh..Patch) 1 patch TRANSDERMA DAILY [facility]; Protocol Last Admin: 02/04/23 08:44 Dose: 1 patch Lorazepam (Lorazepam 1 Mg Tablet) 1 mg PO Q6H PRN PRN Reason: anxiety/restlessness Last Admin: 02/03/23 21:59 Dose: 1 mg Methadone HCl (Methadone Hcl 20 Mg/2 Ml Oral.Conc) 55 mg PO DAILY [facility] Last Admin: 02/04/23 08:45 Dose: 55 mg Ondansetron HCl (Ondansetron Hcl 4 Mg/2 Ml Vial) 4 mg IVPUSH Q6H PRN PRN Reason: Nausea Last Admin: 02/03/23 21:59 Dose: 4 mg Pharmacy Consult (Consult Rx Vancomycin Dosing) 1 each MISCELLANE DAILY PRN PRN Reason: Consult order Home Medications Medication Instructions Recorded Confirmed Last Taken Type mirtazapine 15 mg tablet 15 mg PO BEDTIME 01/29/23 01/29/23 Unknown History Physical Exam Vital Signs: Vital Signs: Last Vital Signs Temp 99.5 F 02/04/23 15:36 Pulse 92 02/04/23 15:36 Resp 20 02/04/23 15:36 BP 127/68 02/04/23 15:36 Pulse Ox 98 02/04/23 15:36 O2 Del Method Nasal Cannula 02/04/23 15:36 O2 Flow Rate 2 02/04/23 15:36 FiO2 96 02/04/23 15:36 BMI result Body Mass Index 25.5 Const: General: cooperative HEENT: Head: Yes normal to inspection Face and sinus: Yes normal facial exam Mouth: Normal oral and palatal mucosa present Teeth and gingiva: dentition normal Eyes: General: appearance normal, both eyes and all related structures Pupils: Equal, round and reactive pupils present Resp: Effort & Inspection: normal respiratory effort Cardio: Other: 08/06 JAEL Rate: regular rate Rhythm: regular rhythm GI: Palpation (GI): Soft to palpation and nontender : Other: Chou catheter General: Yes no CVA tenderness Back/Spine/Pelvis: Back: no CVA tenderness Skin: General skin exam: no rashes or lesions noted Neuro: General: moves all extremities Cranial nerves: Yes Equal, round and reactive pupils present Extrem: General: Yes normal to inspection Psych: Appearance: grossly normal Results Labs 02/04/23 07:16 02/04/23 07:16 Labs: Short CBC 02/04/23 Range/Units 07:16 WBC 18.9 H (4.8-10.8) X10*3/uL Hgb 7.9 L (14.0-18.0) g/dl Hct 22.9 L (42.0-52.0) % Plt Count 143 L D (160-400) X10*3/uL BMP 02/04/23 07:16 Sodium 148 H Potassium 4.7 D Chloride 118 H Carbon Dioxide 18 L BUN 32 H Creatinine 0.71 Calcium 9.1 D Microbiology Microbiology Results: Microbiology 01/30/23 10:47 Blood - Venous Blood Culture - Final Methicillin Res Staph Aureus 01/30/23 10:48 Blood - Venous Blood Culture - Final Methicillin Res Staph Aureus 01/29/23 07:32 Blood - Venous Blood Culture - Final Staphylococcus aureus 01/29/23 07:22 Blood - Venous Blood Culture - Final Staphylococcus aureus 01/29/23 Unknown Urine clean catch - Urine wright top Urine Culture - Final No growth. Assessment and Plan (1) Opioid use disorder: Status: Acute (2) MRSA pneumonia: Status: Acute (3) Tricuspid valve vegetation: Status: Acute He has MRSA endocarditis. He is very somnolent now and not giving much history. This is due to IVDA. There is concern over septic emboli. (4) Endocarditis: Status: Acute Plan Continue Vancomycin likely six weeks end March 12 goal trough 15-20. Weekly creatinine and Vancomycin trough. Check HIV and Hepatitis C. Time Spent With Patient Time: Total time managing care of this patient today ____ minutes.
[2023-02-04 19:31] LABS: Creatinine Clr Calc Pharmacy 147.2; Estimated Glomerular Filt Rate > 60; Vancomycin Random 8.4 mcg/mL (15-20)
--- NOTE | 2023-02-04 19:49 | HE.PHANOTE ---
RE: YOSEF Patients level came back this evening at 8.4. This is suspected to be due to patients renal function greatly improving. Scr was 1.30 yesterday to 0.62 this evening. Was between 1500 mg Q12H or 1000 Q8H. 1500mg is about 20 mg/kg and had higher possibility of toxicity. therefore went with 1000 mg Q8H. due to great improvement to renal function, I will proceed with slight caution and get a random after two doses to see if patient is able to tolerate Q8H frequency. Next level due for 02/05 @1100. Predicted AUC at this time is 458 mg/l/hr.
[2023-02-04] MEDS: Acetaminophen 1,000 MG/100 ML PIGGYBACK 400 MG IV (21:48)
--- NOTE | 2023-02-04 22:21 | PC.NURSE ---
Pt temp at 18:50 was 103 F oral Pt sweaty but only complaint was ongoing abdominal pain which we are medicating him for. Removed heavy blankets, gave pt ice packs. Admin PRN tylenol PO 650mg at 19:14 Recheck temp at 20:46 was 101.3 F - notified of update. Blood cultures also came back gram pos cocci Recheck temp at 21:24 - 99.3 F ordered one dose 1000mg tylenol IV- admin at 2204. Will recheck temp at 2300 vital signs.
[2023-02-05] VITALS (11 sets, daily range): BP systolic 101–153; BP diastolic 51–113; PULSE 81–127; RESP 16–24; TEMP 36.6–39.6; O2SAT 90–97; BMI 27.1
[2023-02-05] MEDS: HYDROmorphone HCl 2 MG/ML VIAL IVPUSH ×4 (02:31→21:49)
[2023-02-05] MEDS: oxyCODONE HCl Immed Release 5 MG TABLET PO ×2 (05:02→20:31)
--- NOTE | 2023-02-05 07:31 | PC.NURSE ---
Assumed care for patient 02/04 @ 8600. Patient febrile this morning 103.2 po. Patient stating I'm cold and refusing ice packs. Maxed on tylenol when attempted to scan. Covering Dr. Carter notified, orders for 600mg ibuprofen given. Handoff report given 2388.
[2023-02-05] MEDS: Lidocaine 4 % Patch ADH..PATCH 1 PATCH TRANSDERMA ×2 (08:07→16:04)
[2023-02-05] MEDS: DAPTOmycin 575 MG in 0.9 % Sodium Chloride 50 ML 100 MG IV (09:16)
--- NOTE | 2023-02-05 09:18 | HO.PM.IMPN ---
Subjective Subjective Date of Service: 02/05/23 Interval History: febrile Physical Exam Vital Signs: Vital Signs: Last Vital Signs Temp 102.3 F H 02/05/23 07:21 Pulse 113 H 02/05/23 07:21 Resp 20 02/05/23 07:21 BP 131/73 02/05/23 07:21 Pulse Ox 96 02/05/23 07:21 O2 Del Method Nasal Cannula 02/05/23 07:21 O2 Flow Rate 2 02/05/23 07:21 FiO2 96 02/04/23 15:36 BMI result Body Mass Index 27.1 Const: General: cooperative HEENT: Head: Yes normal to inspection Face and sinus: Yes normal facial exam Mouth: Normal oral and palatal mucosa present Teeth and gingiva: dentition normal Eyes: General: appearance normal, both eyes and all related structures Pupils: Equal, round and reactive pupils present Resp: Effort & Inspection: normal respiratory effort Cardio: Other: 08/06 JAEL Rate: regular rate Rhythm: regular rhythm GI: Palpation (GI): Soft to palpation and nontender : Other: Chou catheter General: Yes no CVA tenderness Back/Spine/Pelvis: Back: no CVA tenderness Skin: General skin exam: no rashes or lesions noted Neuro: General: moves all extremities Cranial nerves: Yes Equal, round and reactive pupils present Extrem: General: Yes normal to inspection Psych: Appearance: grossly normal Objective Data Active Medications Acetaminophen (Acetaminophen 325 Mg Tablet) 650 mg PO Q6H PRN PRN Reason: Mild pain or fever Last Admin: 02/04/23 19:14 Dose: 650 mg Documented By: MARILIN Albuterol Sulfate (Albuterol Sulfate (0.083%) 2.5 Mg/3 Ml Vial.Neb) 2.5 mg INHALE RQ4H PRN PRN Reason: Wheezing Last Admin: 02/02/23 21:39 Dose: 2.5 mg Documented By: JUSTINO Clonidine HCl (Clonidine Hcl 0.1 Mg Tablet) 0.1 mg PO TID [facility]; Protocol Last Admin: 02/05/23 08:07 Dose: 0.1 mg Documented By: GAMALIEL Enoxaparin Sodium (Enoxaparin Sodium 40 Mg/0.4 Ml Syringe) 40 mg SUBCUT Q24H [facility] Last Admin: 02/04/23 11:21 Dose: 40 mg Documented By: MELVIN Hydromorphone HCl (Hydromorphone Hcl 2 Mg/Ml Vial) 2 mg IVPUSH Q4H PRN; Protocol PRN Reason: Pain, Moderate(Pain Scale 4-6) Last Admin: 02/05/23 07:27 Dose: 2 mg Documented By: SONJA Daptomycin 575 mg/ Sodium (Chloride) 61.5 mls @ 100 mls/hr IV Q24H [facility] Last Admin: 02/05/23 09:16 Dose: 100 mls/hr Documented By: GAMALIEL Lidocaine (Lidocaine 4 % Patch Adh..Patch) 1 patch TRANSDERMA DAILY [facility]; Protocol Last Admin: 02/05/23 08:07 Dose: 1 patch Documented By: GAMALIEL Lorazepam (Lorazepam 1 Mg Tablet) 1 mg PO Q6H PRN PRN Reason: anxiety/restlessness Last Admin: 02/03/23 21:59 Dose: 1 mg Documented By: ADONIS Methadone HCl (Methadone Hcl 20 Mg/2 Ml Oral.Conc) 55 mg PO DAILY [facility] Last Admin: 02/05/23 08:11 Dose: 55 mg Documented By: GAMALIEL Ondansetron HCl (Ondansetron Hcl 4 Mg/2 Ml Vial) 4 mg IVPUSH Q6H PRN PRN Reason: Nausea Last Admin: 02/03/23 21:59 Dose: 4 mg Documented By: ADONIS Oxycodone HCl (Oxycodone Hcl Immed Release 5 Mg Tablet) 5 mg PO Q6H PRN PRN Reason: Pain, Moderate(Pain Scale 4-6) Last Admin: 02/05/23 05:02 Dose: 5 mg Documented By: SONJA Labs 02/05/23 06:18 02/05/23 06:18 Labs: Laboratory Results - last 24 hr 02/04/23 02/04/23 02/05/23 19:09 19:09 06:18 MCV MCH MCHC RDW Plt Count MPV Absolute Nucleated RBC Nucleated RBC % (auto) Anion Gap 14 Estim Creat Clear Calc 147.2 154.4 Estimated GFR > 60 > 60 Fasting Glucose 86 Calcium 8.4 D Random Vancomycin 8.4 L 02/05/23 06:18 MCV 82.1 MCH 27.5 MCHC 33.5 RDW 16.3 H Plt Count 285 D MPV 10.9 Absolute Nucleated RBC 0.000 Nucleated RBC % (auto) 0.0 Anion Gap Estim Creat Clear Calc Estimated GFR Fasting Glucose Calcium Random Vancomycin Microbiology Microbiology Results: Microbiology 02/04/23 07:16 Blood Culture - Preliminary Blood - Venous Gram positive cocci 02/04/23 07:16 Blood Culture - Preliminary Blood - Venous Gram positive cocci Assessment and Plan (1) MRSA pneumonia: Status: Acute Plan 27M polysubstance dependence presented on 01/29/23 with malaise and fever. 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 in a patient who uses IV drugs still septic, still with bactremia will change to dapto follow up cultures Opiate dependence with withdrawal Addiction team following Continue opiate supplement Acute kidney injury Resolved Hypernatremia Encourage free fluids resolved Anemia of inflammation Monitor Ileus advance to solids dvt prophylaxis - lovenox full code reason for continued hospitalization: awaiting culture clearance Time Spent With Patient Time: Total time managing care of this patient today ____ minutes. Quality Stroke Does the patient have a stroke diagnosis?: No VTE Prior VTE?: No VTE Risk Level:: Medical - moderate - high VTE Device Contraindication: N/A - Device Ordered VTE Drug Contraindication: N/A - Med Ordered
[2023-02-05] MEDS: Enoxaparin Sodium 40 MG/0.4 ML SYRINGE SUBCUT (09:59)
--- NOTE | 2023-02-05 12:09 | MHC.RECOVRN ---
Met with pt in 462 to provide support and assess withdrawal. Pt sitting in bed, awake, alert, easily engages in conversation. Familiar with t/w from other facilities. Pt reports feeling scared in regards to current health condition. States things went downhill fast. Pt has recently been in group home x 1 year and had also been [facility] from [facility] earlier this year. Pt had been released from Section at the end of November and recurrence with opioids and cocaine happened soon thereafter. Pt has been using heroin, 1-1.5 bundles daily as well as cocaine, INH and IV. Pt grateful for care at [facility] and feels overall comfortable. Denies other questions or concerns for t/w. Will continue to follow.
--- NOTE | 2023-02-05 18:08 | PC.NURSE ---
pt had oral temp 100.5, HR 120s-140, BP 153/110, 90% 2L, RR 24. pt c/o coldness, warm blankets and warm packs given. Gave Tylenol and Ativan. notifed. cont to monitor.
[2023-02-05] MEDS: Ibuprofen 600 MG TABLET PO (20:30)
[2023-02-06] VITALS (13 sets, daily range): BP systolic 90–182; BP diastolic 51–92; PULSE 93–147; RESP 16–98; TEMP 35.9–39.6; O2SAT 94–98; BMI 26.4
[2023-02-06] MEDS: Acetaminophen 325 MG TABLET 975 MG PO ×4 (01:45→22:11)
[2023-02-06] MEDS: HYDROmorphone HCl 2 MG/ML VIAL IVPUSH ×4 (01:45→22:09)
[2023-02-06] MEDS: Ibuprofen 600 MG TABLET PO ×3 (05:13→22:04)
[2023-02-06] MEDS: oxyCODONE HCl Immed Release 5 MG TABLET PO ×3 (05:13→23:59)
[2023-02-06 06:54] LABS: Anion Gap 11 (12-20); Calcium 8.1 mg/dL (8.4-10.2); Carbon Dioxide 22 mmol/L (22-29); Chloride 107 mmol/L (96-108); Glucose Fasting 74 mg/dL (60-99); Potassium 3.7 mmol/L (3.3-5.1); Sodium 136 mmol/L (135-145)
[2023-02-06 06:55] LABS: Hematocrit 22.7 % (42.0-52.0); Hemoglobin 7.5 g/dl (14.0-18.0); Mean Corpuscular Hemoglobin 27.7 pg (27.0-33.0); Mean Corpuscular Volume 83.8 fL (80.0-98.0); Mean Platelet Volume 11.3 fL (9.4-12.4); Platelet Count 159 X10*3/uL (160-400); Red Blood Count 2.71 X10*6/uL (4.60-5.80); Red Cell Distribution Width 16.3 % (11.0-16.0); White Blood Count 14.5 X10*3/uL (4.8-10.8)
[2023-02-06 07:09] LABS: Blood Urea Nitrogen 23 mg/dL (9-16); Creatinine Clr Calc Pharmacy 142.6; Estimated Glomerular Filt Rate > 60
--- NOTE | 2023-02-06 08:03 | HE.PHANOTE ---
daptomycin vs vancomycin There are no notes in but Micki confirmed with Dr. Lainez on 02/[address] Hernandez sent him a message stating to change to daptomycin 8 mg/kg because 6 days treatment vanco w/ no improvement was too long.
[2023-02-06] MEDS: Lidocaine 4 % Patch ADH..PATCH 1 PATCH TRANSDERMA ×2 (08:07→08:08)
[2023-02-06] MEDS: DAPTOmycin 575 MG in 0.9 % Sodium Chloride 50 ML 100 MG IV (08:14)
[2023-02-06] MEDS: Enoxaparin Sodium 40 MG/0.4 ML SYRINGE SUBCUT (09:56)
--- NOTE | 2023-02-06 10:27 | HO.PM.IMPN ---
Subjective Subjective Date of Service: 02/06/23 Interval History: some improvmenet Physical Exam Vital Signs: Vital Signs: Last Vital Signs Temp 97.5 F 02/06/23 09:45 Pulse 97 02/06/23 07:50 Resp 18 02/06/23 07:50 BP 116/62 02/06/23 07:50 Pulse Ox 98 02/06/23 07:50 O2 Del Method Nasal Cannula 02/06/23 07:50 O2 Flow Rate 2 02/06/23 07:50 FiO2 96 02/04/23 15:36 BMI result Body Mass Index 26.4 Const: General: cooperative HEENT: Head: Yes normal to inspection Face and sinus: Yes normal facial exam Mouth: Normal oral and palatal mucosa present Teeth and gingiva: dentition normal Eyes: General: appearance normal, both eyes and all related structures Pupils: Equal, round and reactive pupils present Resp: Effort & Inspection: normal respiratory effort Cardio: Other: 08/06 JAEL Rate: regular rate Rhythm: regular rhythm GI: Palpation (GI): Soft to palpation and nontender : Other: Chou catheter General: Yes no CVA tenderness Back/Spine/Pelvis: Back: no CVA tenderness Skin: General skin exam: no rashes or lesions noted Neuro: General: moves all extremities Cranial nerves: Yes Equal, round and reactive pupils present Extrem: General: Yes normal to inspection Psych: Appearance: grossly normal Objective Data Active Medications Acetaminophen (Acetaminophen 325 Mg Tablet) 975 mg PO Q6H PRN PRN Reason: Mild pain or fever Last Admin: 02/06/23 08:08 Dose: 975 mg Documented By: GAMALIEL Albuterol Sulfate (Albuterol Sulfate (0.083%) 2.5 Mg/3 Ml Vial.Neb) 2.5 mg INHALE RQ4H PRN PRN Reason: Wheezing Last Admin: 02/02/23 21:39 Dose: 2.5 mg Documented By: JUSTINO Clonidine HCl (Clonidine Hcl 0.1 Mg Tablet) 0.1 mg PO TID [facility]; Protocol Last Admin: 02/06/23 08:06 Dose: 0.1 mg Documented By: GAMALIEL Enoxaparin Sodium (Enoxaparin Sodium 40 Mg/0.4 Ml Syringe) 40 mg SUBCUT Q24H [facility] Last Admin: 02/06/23 09:56 Dose: 40 mg Documented By: GAMALIEL Hydromorphone HCl (Hydromorphone Hcl 2 Mg/Ml Vial) 2 mg IVPUSH Q4H PRN; Protocol PRN Reason: Pain, Moderate(Pain Scale 4-6) Last Admin: 02/06/23 08:09 Dose: 2 mg Documented By: GAMALIEL Daptomycin 575 mg/ Sodium (Chloride) 61.5 mls @ 100 mls/hr IV Q24H [facility] Last Infusion: 02/06/23 08:51 Dose: 0 mls/hr Documented By: GAMALIEL Ibuprofen (Ibuprofen 600 Mg Tablet) 600 mg PO Q8H PRN PRN Reason: Fever >100.4 Last Admin: 02/06/23 05:13 Dose: 600 mg Documented By: SONJA Lidocaine (Lidocaine 4 % Patch Adh..Patch) 1 patch TRANSDERMA DAILY [facility]; Protocol Last Admin: 02/06/23 08:07 Dose: 1 patch Documented By: GAMALIEL Lidocaine (Lidocaine 4 % Patch Adh..Patch) 1 patch TRANSDERMA DAILY [facility]; Protocol Last Admin: 02/06/23 08:08 Dose: 1 patch Documented By: GAMALIEL Lorazepam (Lorazepam 1 Mg Tablet) 1 mg PO Q6H PRN PRN Reason: anxiety/restlessness Last Admin: 02/06/23 09:54 Dose: 1 mg Documented By: GAMALIEL Methadone HCl (Methadone Hcl 20 Mg/2 Ml Oral.Conc) 60 mg PO DAILY [facility] Ondansetron HCl (Ondansetron Hcl 4 Mg/2 Ml Vial) 4 mg IVPUSH Q6H PRN PRN Reason: Nausea Last Admin: 02/03/23 21:59 Dose: 4 mg Documented By: ADONIS Oxycodone HCl (Oxycodone Hcl Immed Release 5 Mg Tablet) 5 mg PO Q6H PRN PRN Reason: Pain, Moderate(Pain Scale 4-6) Last Admin: 02/06/23 05:13 Dose: 5 mg Documented By: SONJA Labs 02/06/23 06:22 02/06/23 06:22 Labs: Laboratory Results - last 24 hr 02/04/23 02/06/23 02/06/23 16:30 06:22 06:22 MCV 83.8 MCH 27.7 MCHC 33.0 RDW 16.3 H Plt Count 159 L D MPV 11.3 Absolute Nucleated RBC 0.000 Nucleated RBC % (auto) 0.0 Anion Gap 11 L Estim Creat Clear Calc 142.6 Estimated GFR > 60 Fasting Glucose 74 Calcium 8.1 L Hepatitis C Ab (EIA) Reactive H Microbiology Microbiology Results: Microbiology 02/04/23 07:16 Blood Culture - Preliminary Blood - Venous Gram positive cocci 02/04/23 07:16 Blood Culture - Preliminary Blood - Venous Gram positive cocci Assessment and Plan (1) MRSA pneumonia: Status: Acute Plan 27M polysubstance dependence presented on 01/29/23 with malaise and fever. 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 in a patient who uses IV drugs dapto follow up cultures Opiate dependence with withdrawal Addiction team following Continue opiate supplement Acute kidney injury Resolved Hypernatremia Encourage free fluids resolved Anemia of inflammation Monitor Ileus advanced to solids dvt prophylaxis - lovenox full code reason for continued hospitalization: awaiting culture clearance Time Spent With Patient Time: Total time managing care of this patient today ____ minutes. Quality Stroke Does the patient have a stroke diagnosis?: No VTE Prior VTE?: No VTE Risk Level:: Medical - moderate - high VTE Device Contraindication: N/A - Device Ordered VTE Drug Contraindication: N/A - Med Ordered
--- NOTE | 2023-02-06 10:57 | PM.PNCARD ---
Subjective Subjective Date of Service: 02/06/23 Interval history: He states he is feeling much better than before. Last fever was last night. Review of Systems Review of Systems Yes all other systems are reviewed and are negative Constitutional: Reports as per HPI and Reports no additional constitutional complaints Eyes: Reports as per HPI and Denies no additional eye complaints Denies system reviewed and no additional complaints, except as documented and Reports as per HPI Cardiovascular: Reports as per HPI, Reports no additional cardiovascular complaints, Denies acrocyanosis, Denies cool extremities, Denies chest pain, Denies leg edema, Denies lightheadedness, Denies palpitations and Denies dyspnea Respiratory: Reports as per HPI, Denies no additional respiratory complaints and Denies dyspnea Gastrointestinal: Reports as per HPI and Denies no additional gastrointestinal complaints Genitourinary: Reports no additional male genitourinary complaints and Reports as per HPI Musculoskeletal: Reports no additional musculoskeletal complaints and Reports as per HPI Skin/Breast: Reports system reviewed and no additional complaints, except as docu Reports system reviewed and no additional complaints, except as documented and Reports as per HPI Psychiatric: Reports no additional psychiatric complaints and Reports as per HPI Endocrine: Reports no additional endocrine complaints, Reports as per HPI and Denies palpitations Hematologic/Lymphatic: Reports no additional hematologic/lymphatic complaints and Reports as per HPI Allergic/Immunologic: Reports no additional allergic/immunologic complaints and Reports as per HPI Physical Exam Vital Signs: Last Vital Signs Temp 97.5 F 02/06/23 09:45 Pulse 97 02/06/23 07:50 Resp 18 02/06/23 07:50 BP 116/62 02/06/23 07:50 Pulse Ox 98 02/06/23 07:50 O2 Del Method Nasal Cannula 02/06/23 07:50 O2 Flow Rate 2 02/06/23 07:50 FiO2 96 02/04/23 15:36 BMI result Body Mass Index 26.4 Const General: comfortable and no acute distress Orientation/consciousness: patient oriented x3 HEENT Other: Unremarkable Head: Yes normal to inspection Neck Neck: Yes normal visual inspection Chest Chest palpation & inspection: normal inspection of the chest Resp Auscultation: clear to auscultation bilaterally Cardio Palpation: normal PMI Heart sounds: S1 normal heart sound present, S2 normal heart sound present, no gallops, no murmurs and no rubs GI Palpation (GI): Soft to palpation Back/Spine/Pelvis Other: unremarkable Skin General skin exam: no rashes or lesions noted Neuro General: patient oriented x3 Extrem General: Yes normal to inspection Psych Mental Status: mental status grossly normal Objective Labs and Meds 02/06/23 06:22 02/06/23 06:22 Lab results: Laboratory Results - last 24 hr 02/04/23 02/06/23 02/06/23 16:30 06:22 06:22 WBC 14.5 H RBC 2.71 L Hgb 7.5 L Hct 22.7 L MCV 83.8 MCH 27.7 MCHC 33.0 RDW 16.3 H Plt Count 159 L D MPV 11.3 Absolute Nucleated RBC 0.000 Nucleated RBC % (auto) 0.0 Sodium 136 Potassium 3.7 Chloride 107 Carbon Dioxide 22 Anion Gap 11 L BUN 23 H Creatinine 0.64 Estim Creat Clear Calc 142.6 Estimated GFR > 60 Fasting Glucose 74 Calcium 8.1 L Hepatitis C Ab (EIA) Reactive H Progress Note: A&P Assessment and plan (1) MRSA bacteremia: Status: Acute (2) Endocarditis: Status: Acute (3) Polysubstance abuse: Status: Acute Plan Patient had a transesophageal echocardiogram in the ICU while he was intubated. Additionally, repeat transthoracic echocardiogram tuesday. Overall, he has tricuspid valve vegetation/endocarditis. Initially, we thought he had severe tricuspid regurgitation but believe is no more than moderate. There is no evidence of other complications like perforation the valve or abscess. There is no evidence of right heart dysfunction. Hemodynamically he is fairly stable. In the chest CTA, suspicion for septic emboli. Concern for pulmonary arterial hypertension. Tox screen positive for opiates, fentanyl, cocaine. It seems that the vancomycin levels were subtherapeutic per discussion with the hospitalist. This apparently being changed to daptomycin. Will continue to follow blood cultures. As the antibiotic levels were subtherapeutic, do not believe this is truly antibiotic failure. If in case the blood cultures still remain positive in spite of adequate antibiotics, then will need to repeat echocardiogram/chest CT. In that case, may need to entertain cardiac surgery evaluation. This of course based on patient's plan for future including abstaining from drugs completely. I had discussed with him about the same. In the past, he states that he was shoplifting to pay for drugs. And that he is willing to consider lifestyle changes. Discussed with Dr. Lainez. Time Spent With Patient Time: Total time managing care of this patient today 45 minutes. This includes time spent in review of chart, laboratory data, imaging studies, review of telemetry, counseling patient, discussion with hospitalist, RN, documentation, coordination of care. Progress Note: Quality Stroke Does the patient have a stroke diagnosis?: No Procedures Date of Service Date of Service: 02/06/23
[2023-02-07] VITALS (12 sets, daily range): BP systolic 91–116; BP diastolic 50–60; PULSE 94–120; RESP 18–24; TEMP 36.5–37.4; O2SAT 94–98; BMI 28.9
[2023-02-07] MEDS: HYDROmorphone HCl 2 MG/ML VIAL IVPUSH ×3 (05:24→21:04)
--- NOTE | 2023-02-07 07:24 | PC.NURSE ---
02/06/232144 This RN called into patient's room . Patient's oral temp 103.3, BP 182/92 , HR 146. Patient yelling and unable to sit still, stating that he can't stop shivering and it feels like he is withdrawing. Dr. Carter notified, Patient given Ibuprofen, Ativan 2mg po, scheduled Clonidine, and Tylenol 975mg given as early dose per hospitalist. EKG ordered which read Sinus tach. Ativan 1 mg IV and Tylenol IV ordered and administered . 2/2 blood cultures reported positive for gr + cocci. Hospitalist notified, Daptomycin previously ordered. Patient's T 98.4, BP 92/53 , HR 94, resting comfortably at present. Will continue to monitor and report any changes.
[2023-02-07] MEDS: Lidocaine 4 % Patch ADH..PATCH 1 PATCH TRANSDERMA ×2 (07:44)
[2023-02-07] MEDS: methADONE HCl 20 MG/2 ML ORAL.CONC 60 MG PO (07:44)
[2023-02-07] MEDS: DAPTOmycin 575 MG in 0.9 % Sodium Chloride 50 ML 100 MG IV (07:55)
[2023-02-07] MEDS: Ibuprofen 600 MG TABLET PO ×2 (09:14→17:23)
[2023-02-07] MEDS: oxyCODONE HCl Immed Release 5 MG TABLET PO ×2 (09:15→17:24)
--- NOTE | 2023-02-07 10:31 | MHC.CM.PN ---
EMR reviewed and per MD rounds, pt remains acute with blood cultures pending, no plan for D/C at this time. [facility] following on [facility]. CM will continue to follow.
[2023-02-07] MEDS: Enoxaparin Sodium 40 MG/0.4 ML SYRINGE SUBCUT (10:51)
--- NOTE | 2023-02-07 10:51 | HO.PM.IMPN ---
Subjective Subjective Date of Service: 02/07/23 Interval History: overall feeling a bit better, still with fevers Physical Exam Vital Signs: Vital Signs: Last Vital Signs Temp 98.2 F 02/07/23 10:43 Pulse 102 H 02/07/23 10:43 Resp 20 02/07/23 10:43 BP 92/50 L 02/07/23 10:43 Pulse Ox 97 02/07/23 07:13 O2 Del Method Room Air 02/07/23 07:13 O2 Flow Rate 2 02/07/23 03:35 FiO2 96 02/04/23 15:36 BMI result Body Mass Index 28.9 Const: General: comfortable and no acute distress Orientation/consciousness: patient oriented x3 HEENT: Other: Unremarkable Head: Yes normal to inspection Neck: Neck: Yes normal visual inspection Chest: Chest palpation & inspection: normal inspection of the chest Resp: Auscultation: clear to auscultation bilaterally Cardio: Palpation: normal PMI Heart sounds: S1 normal heart sound present, S2 normal heart sound present, no gallops, no murmurs and no rubs GI: Palpation (GI): Soft to palpation Back/Spine/Pelvis: Other: unremarkable Skin: General skin exam: no rashes or lesions noted Neuro: General: patient oriented x3 Extrem: General: Yes normal to inspection Psych: Mental Status: mental status grossly normal Objective Data Active Medications Acetaminophen (Acetaminophen 325 Mg Tablet) 975 mg PO Q6H PRN PRN Reason: Mild pain or fever Last Admin: 02/06/23 22:11 Dose: 975 mg Documented By: DAGOBERTO Albuterol Sulfate (Albuterol Sulfate (0.083%) 2.5 Mg/3 Ml Vial.Neb) 2.5 mg INHALE RQ4H PRN PRN Reason: Wheezing Last Admin: 02/02/23 21:39 Dose: 2.5 mg Documented By: JUSTINO Clonidine HCl (Clonidine Hcl 0.1 Mg Tablet) 0.1 mg PO TID [facility]; Protocol Last Admin: 02/07/23 07:59 Dose: Not Given Documented By: GAMALIEL Non-Admin Reason: Physician Held Med Enoxaparin Sodium (Enoxaparin Sodium 40 Mg/0.4 Ml Syringe) 40 mg SUBCUT Q24H [facility] Last Admin: 02/06/23 09:56 Dose: 40 mg Documented By: GAMALIEL Hydromorphone HCl (Hydromorphone Hcl 2 Mg/Ml Vial) 2 mg IVPUSH Q4H PRN; Protocol PRN Reason: Pain, Moderate(Pain Scale 4-6) Last Admin: 02/07/23 05:24 Dose: 2 mg Documented By: DAGOBERTO Daptomycin 575 mg/ Sodium (Chloride) 61.5 mls @ 100 mls/hr IV Q24H [facility] Last Infusion: 02/07/23 08:32 Dose: 0 mls/hr Documented By: GAMALIEL Ibuprofen (Ibuprofen 600 Mg Tablet) 600 mg PO Q8H PRN PRN Reason: Fever >100.4 Last Admin: 02/07/23 09:14 Dose: 600 mg Documented By: GAMALIEL Lidocaine (Lidocaine 4 % Patch Adh..Patch) 1 patch TRANSDERMA DAILY [facility]; Protocol Last Admin: 02/07/23 07:44 Dose: 1 patch Documented By: GAMALIEL Lidocaine (Lidocaine 4 % Patch Adh..Patch) 1 patch TRANSDERMA DAILY [facility]; Protocol Last Admin: 02/07/23 07:44 Dose: 1 patch Documented By: GAMALIEL Lorazepam (Lorazepam 1 Mg Tablet) 1 mg PO Q6H PRN PRN Reason: anxiety/restlessness Last Admin: 02/06/23 09:54 Dose: 1 mg Documented By: GAMALIEL Methadone HCl (Methadone Hcl 20 Mg/2 Ml Oral.Conc) 60 mg PO DAILY [facility] Last Admin: 02/07/23 07:44 Dose: 60 mg Documented By: GAMALIEL Ondansetron HCl (Ondansetron Hcl 4 Mg/2 Ml Vial) 4 mg IVPUSH Q6H PRN PRN Reason: Nausea Last Admin: 02/03/23 21:59 Dose: 4 mg Documented By: ADONIS Oxycodone HCl (Oxycodone Hcl Immed Release 5 Mg Tablet) 5 mg PO Q6H PRN PRN Reason: Pain, Moderate(Pain Scale 4-6) Last Admin: 02/07/23 09:15 Dose: 5 mg Documented By: GAMALIEL Labs 02/07/23 06:29 02/07/23 06:29 Labs: Laboratory Results - last 24 hr 02/04/23 02/07/2323 16:30 06:29 06:29 MCV 84.3 MCH 27.2 MCHC 32.3 RDW 16.7 H Plt Count 317 D MPV 10.8 Absolute Nucleated RBC 0.000 Nucleated RBC % (auto) 0.0 Anion Gap 11 L Estim Creat Clear Calc 135.8 Estimated GFR > 60 Fasting Glucose 76 Calcium 8.0 L HIV 1&2 Ab/P24 Ag 4thGn Nonreactive Blood Type Antibody Screen Crossmatch 02/07/23 07:48 MCV MCH MCHC RDW Plt Count MPV Absolute Nucleated RBC Nucleated RBC % (auto) Anion Gap Estim Creat Clear Calc Estimated GFR Fasting Glucose Calcium HIV 1&2 Ab/P24 Ag 4thGn Blood Type A Positive Antibody Screen NEGATIVE Crossmatch See Detail Microbiology Microbiology Results: Microbiology 02/04/23 07:16 Blood Culture - Final Blood - Venous Methicillin Res Staph Aureus 02/04/23 07:16 Blood Culture - Final Blood - Venous Methicillin Res Staph Aureus 02/06/23 06:22 Blood Culture - Preliminary Blood - Venous Prelim: GPC Gram Stain only 02/06/23 06:22 Blood Culture - Preliminary Blood - Venous Prelim: GPC Gram Stain only Assessment and Plan (1) MRSA pneumonia: Status: Acute Plan 27M polysubstance dependence presented on 01/29/23 with malaise and fever. 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 in a patient who uses IV drugs dapto follow up cultures, positive againa, repeat 02/08/23 Opiate dependence with withdrawal Addiction team following Continue opiate supplement Acute kidney injury Resolved Hypernatremia Encourage free fluids resolved Anemia of inflammation Monitor Ileus advanced to solids dvt prophylaxis - lovenox full code reason for continued hospitalization: awaiting culture clearance Time Spent With Patient Time: Total time managing care of this patient today ____ minutes. Quality Stroke Does the patient have a stroke diagnosis?: No VTE Prior VTE?: No VTE Risk Level:: Medical - moderate - high VTE Device Contraindication: N/A - Device Ordered VTE Drug Contraindication: N/A - Med Ordered
--- NOTE | 2023-02-07 11:07 | PM.PNCARD ---
Subjective Subjective Date of Service: 02/07/23 Principal diagnosis: Tricuspid valve endocarditis Interval history: Patient with still positive blood cultures. Complains of lack of sleep due to pain. Currently says pain is better with methadone. Not a very good historian. Blood cultures seem to be growing Gram-positive cocci. Review of Systems Constitutional: Reports malaise Respiratory: Reports pain on inspiration and Reports pain with cough Gastrointestinal: Reports no additional gastrointestinal complaints Allergic/Immunologic: Reports no additional allergic/immunologic complaints Physical Exam Vital Signs: Last Vital Signs Temp 97.7 F 02/07/23 11:04 Pulse 102 H 02/07/23 11:04 Resp 20 02/07/23 11:04 BP 93/55 L 02/07/23 11:04 Pulse Ox 94 02/07/23 11:04 O2 Del Method Room Air 02/07/23 11:04 O2 Flow Rate 2 02/07/23 03:35 FiO2 96 02/04/23 15:36 BMI result Body Mass Index 28.9 Const General: comfortable and no acute distress Orientation/consciousness: patient oriented x3 HEENT Other: Unremarkable Head: Yes normal to inspection Neck Neck: Yes normal visual inspection Chest Chest palpation & inspection: normal inspection of the chest Resp Auscultation: clear to auscultation bilaterally Cardio Palpation: normal PMI Heart sounds: S1 normal heart sound present, S2 normal heart sound present, no gallops, no murmurs and no rubs GI Palpation (GI): Soft to palpation Back/Spine/Pelvis Other: unremarkable Skin General skin exam: no rashes or lesions noted Neuro General: patient oriented x3 Extrem General: Yes normal to inspection Psych Mental Status: mental status grossly normal Objective Labs and Meds 02/07/23 06:29 02/07/23 06:29 Lab results: Laboratory Results - last 24 hr 02/04/23 02/07/23 02/07/23 16:30 06:29 06:29 WBC 15.2 H RBC 2.35 L Hgb 6.4 L* Hct 19.8 L* MCV 84.3 MCH 27.2 MCHC 32.3 RDW 16.7 H Plt Count 317 D MPV 10.8 Absolute Nucleated RBC 0.000 Nucleated RBC % (auto) 0.0 Sodium 136 Potassium 3.7 Chloride 106 Carbon Dioxide 23 Anion Gap 11 L BUN 29 H Creatinine 0.75 Estim Creat Clear Calc 135.8 Estimated GFR > 60 Fasting Glucose 76 Calcium 8.0 L HIV 1&2 Ab/P24 Ag 4thGn Nonreactive Blood Type Antibody Screen Crossmatch 02/07/23 07:48 WBC RBC Hgb Hct MCV MCH MCHC RDW Plt Count MPV Absolute Nucleated RBC Nucleated RBC % (auto) Sodium Potassium Chloride Carbon Dioxide Anion Gap BUN Creatinine Estim Creat Clear Calc Estimated GFR Fasting Glucose Calcium HIV 1&2 Ab/P24 Ag 4thGn Blood Type A Positive Antibody Screen NEGATIVE Crossmatch See Detail Progress Note: A&P Assessment and plan (1) Tricuspid valve vegetation: Status: Acute Assessment and Plan: Tricuspid valve endocarditis with large vegetation on the tricuspid valve with moderate tricuspid regurgitation related to IV drug abuse. Patient still remains with leukocytosis and tachycardia. He has embolic complication with septic pulmonary embolism. Continue aggressively IV antibiotics. Discussed with him about the risk of IV drug abuse. He said he understands and wants to pursue detoxification. If he remains persistently bacteremic will require evaluation with Cardiothoracic surgery. High risk for surgical intervention as well. Will continue to follow with you Time Spent With Patient Time: Total time managing care of this patient today ____ minutes. Progress Note: Quality Stroke Does the patient have a stroke diagnosis?: No Procedures Date of Service Date of Service: 02/07/23
--- NOTE | 2023-02-07 13:53 | MHC.CLN ---
F/U PO INTAKE VARIABLE BETWEEN 25-75% DIET RX ADVANCED TO REGULAR-APPROPRIATE RECOMMEND ADDING ENSURE BID TO INCREASE KCALS SUPP TO PROVIDE 700KCALS, 40G PROTEIN MONITOR PO INTAKE CLOSELY
[2023-02-07] MEDS: LORazepam 1 MG TABLET PO (18:05)
[2023-02-08] VITALS (9 sets, daily range): BP systolic 95–120; BP diastolic 51–66; PULSE 99–134; RESP 17–20; TEMP 36.7–39.4; O2SAT 92–98; BMI 27.5
[2023-02-08] MEDS: ondansetron HCL 4 MG/2 ML VIAL IVPUSH (03:34)
[2023-02-08] MEDS: HYDROmorphone HCl 2 MG/ML VIAL IVPUSH ×2 (03:43→08:08)
[2023-02-08] MEDS: Ibuprofen 600 MG TABLET PO (03:44)
[2023-02-08] MEDS: Lidocaine 4 % Patch ADH..PATCH 1 PATCH TRANSDERMA ×3 (05:52→08:18)
[2023-02-08 06:58] LABS: Hematocrit 22.5 % (42.0-52.0); Hemoglobin 7.4 g/dl (14.0-18.0); Mean Corpuscular HGB Conc 32.9 g/dl (31.0-36.0); Mean Corpuscular Hemoglobin 28.2 pg (27.0-33.0); Mean Corpuscular Volume 85.9 fL (80.0-98.0); Mean Platelet Volume 10.6 fL (9.4-12.4); Platelet Count 372 X10*3/uL (160-400); Red Blood Count 2.62 X10*6/uL (4.60-5.80); Red Cell Distribution Width 17.2 % (11.0-16.0); White Blood Count 12.7 X10*3/uL (4.8-10.8)
[2023-02-08 07:18] LABS: Anion Gap 14 (12-20); Blood Urea Nitrogen 18 mg/dL (9-16); Carbon Dioxide 20 mmol/L (22-29); Chloride 104 mmol/L (96-108); Creatinine Clr Calc Pharmacy 140.1; Estimated Glomerular Filt Rate > 60; Glucose Fasting 122 mg/dL (60-99); Potassium 3.5 mmol/L (3.3-5.1); Sodium 134 mmol/L (135-145)
[2023-02-08] MEDS: DAPTOmycin 575 MG in 0.9 % Sodium Chloride 50 ML 100 MG IV (08:00)
[2023-02-08] MEDS: methADONE HCl 20 MG/2 ML ORAL.CONC 60 MG PO (08:00)
[2023-02-08] MEDS: cloNIDine HCL 0.1 MG TABLET PO ×2 (08:01→21:45)
--- NOTE | 2023-02-08 09:37 | HO.PM.IMPN ---
Subjective Subjective Date of Service: 02/08/23 Interval History: still with fevers Physical Exam Vital Signs: Vital Signs: Last Vital Signs Temp 98.6 F 02/08/23 07:45 Pulse 106 H 02/08/23 07:45 Resp 20 02/08/23 07:45 BP 115/60 02/08/23 07:45 Pulse Ox 98 02/08/23 07:45 O2 Del Method Room Air 02/08/23 07:45 O2 Flow Rate 2 02/07/23 03:35 FiO2 96 02/04/23 15:36 BMI result Body Mass Index 27.5 Const: General: comfortable and no acute distress Orientation/consciousness: patient oriented x3 HEENT: Other: Unremarkable Head: Yes normal to inspection Neck: Neck: Yes normal visual inspection Chest: Chest palpation & inspection: normal inspection of the chest Resp: Auscultation: clear to auscultation bilaterally Cardio: Palpation: normal PMI Heart sounds: S1 normal heart sound present, S2 normal heart sound present, no gallops, no murmurs and no rubs GI: Palpation (GI): Soft to palpation Back/Spine/Pelvis: Other: unremarkable Skin: General skin exam: no rashes or lesions noted Neuro: General: patient oriented x3 Extrem: General: Yes normal to inspection Psych: Mental Status: mental status grossly normal Objective Data Active Medications Acetaminophen (Acetaminophen 325 Mg Tablet) 975 mg PO Q6H PRN PRN Reason: Mild pain or fever Last Admin: 02/06/23 22:11 Dose: 975 mg Documented By: DAGOBERTO Clonidine HCl (Clonidine Hcl 0.1 Mg Tablet) 0.1 mg PO BID [facility]; Protocol Last Admin: 02/08/23 08:01 Dose: 0.1 mg Documented By: VONNIE Enoxaparin Sodium (Enoxaparin Sodium 40 Mg/0.4 Ml Syringe) 40 mg SUBCUT Q24H [facility] Last Admin: 02/07/23 10:51 Dose: 40 mg Documented By: GAMALIEL Hydromorphone HCl (Hydromorphone Hcl 2 Mg/Ml Vial) 2 mg IVPUSH Q4H PRN; Protocol PRN Reason: Pain, Moderate(Pain Scale 4-6) Last Admin: 02/08/23 08:08 Dose: 2 mg Documented By: VONNIE Daptomycin 575 mg/ Sodium (Chloride) 61.5 mls @ 100 mls/hr IV Q24H [facility] Last Admin: 02/08/23 08:00 Dose: 100 mls/hr Documented By: VONNIE Ibuprofen (Ibuprofen 600 Mg Tablet) 600 mg PO Q8H PRN PRN Reason: Fever >100.4 Last Admin: 02/08/23 03:44 Dose: 600 mg Documented By: AAMIR Lidocaine (Lidocaine 4 % Patch Adh..Patch) 1 patch TRANSDERMA DAILY [facility]; Protocol Last Admin: 02/08/23 08:01 Dose: 1 patch Documented By: VONNIE Lidocaine (Lidocaine 4 % Patch Adh..Patch) 1 patch TRANSDERMA DAILY [facility]; Protocol Last Admin: 02/08/23 08:18 Dose: 1 patch Documented By: VONNIE Lorazepam (Lorazepam 1 Mg Tablet) 1 mg PO BID PRN PRN Reason: anxiety/restlessness Last Admin: 02/07/23 18:05 Dose: 1 mg Documented By: GAMALIEL Methadone HCl (Methadone Hcl 20 Mg/2 Ml Oral.Conc) 60 mg PO DAILY [facility] Last Admin: 02/08/23 08:00 Dose: 60 mg Documented By: VONNIE Ondansetron HCl (Ondansetron Hcl 4 Mg/2 Ml Vial) 4 mg IVPUSH Q6H PRN PRN Reason: Nausea Last Admin: 02/08/23 03:34 Dose: 4 mg Documented By: AAMIR Oxycodone HCl (Oxycodone Hcl Immed Release 5 Mg Tablet) 5 mg PO Q6H PRN PRN Reason: Pain, Moderate(Pain Scale 4-6) Last Admin: 02/07/23 17:24 Dose: 5 mg Documented By: GAMALIEL Labs 02/08/23 05:47 02/08/23 05:47 Labs: Laboratory Results - last 24 hr 02/07/23 02/08/23 02/08/23 07:48 05:47 05:47 MCV 85.9 MCH 28.2 MCHC 32.9 RDW 17.2 H Plt Count 372 MPV 10.6 Absolute Nucleated RBC 0.000 Nucleated RBC % (auto) 0.0 Anion Gap 14 Estim Creat Clear Calc 140.1 Estimated GFR > 60 Fasting Glucose 122 H Calcium 8.0 L Blood Type A Positive Antibody Screen NEGATIVE Crossmatch See Detail Microbiology Microbiology Results: Microbiology 02/06/23 06:22 Blood Culture - Preliminary Blood - Venous Gram positive cocci 02/06/23 06:22 Blood Culture - Preliminary Blood - Venous Gram positive cocci 02/04/23 07:16 Blood Culture - Final Blood - Venous Methicillin Res Staph Aureus 02/04/23 07:16 Blood Culture - Final Blood - Venous Methicillin Res Staph Aureus Assessment and Plan (1) MRSA pneumonia: Status: Acute Plan 27M polysubstance dependence presented on 01/29/23 with malaise and fever. 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 in a patient who uses IV drugs dapto, follow cpk weekly follow up cultures, last positive 02/06/23, if repeat 02/08/23 still positive will need to consider transfer for cardiac surgery Opiate dependence with withdrawal Addiction team following Continue opiate supplement Acute kidney injury Resolved Hypernatremia resolved Anemia of inflammation transfused 1 unit prb 02/07/23 hgb improved appropriately Monitor Ileus resolved dvt prophylaxis - lovenox full code reason for continued hospitalization: awaiting culture clearance Time Spent With Patient Time: Total time managing care of this patient today ____ minutes. Quality Stroke Does the patient have a stroke diagnosis?: No VTE Prior VTE?: No VTE Risk Level:: Medical - moderate - high VTE Device Contraindication: N/A - Device Ordered VTE Drug Contraindication: N/A - Med Ordered
--- NOTE | 2023-02-08 09:51 | HO.ADDICTPRO ---
Subjective Subjective Date of Service: 02/08/23 Reason For Visit: TV endocarditis Interim History: Patient seen in follow up Methadone dose currently at 60mg QD. 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 Asked about this, he reports not sleeping at night and post methadone dosing is when he can power nap . Patient requesting methadone dose continue to be increased. Did not appear diaphoretic, restless or in any discomfort. Review of Systems Constitutional: Reports as per HPI and Reports no additional constitutional complaints Mental Status Exam Mental Status Exam Patient Appearance: Appropriate Level of Consciousness: Drowsy Patient Behavior: Cooperative Diagnostics Vital Signs (24Hr): Vital Signs - 24 hr 02/07/23 10:43 02/07/23 11:01 02/07/23 11:04 Temperature 98.2 F 97.7 F 97.7 F Pulse Rate 102 H 102 H 102 H Respiratory Rate 20 20 20 Blood Pressure 92/50 L 93/55 L 93/55 L Pulse Oximetry 94 Oxygen Delivery Method Room Air 02/07/23 14:57 02/07/23 15:42 02/07/23 20:00 Temperature 99.1 F 99.4 F 98.7 F Pulse Rate 104 H 113 H 120 H Respiratory Rate 20 20 24 H Blood Pressure 97/51 L 116/56 L 110/60 Pulse Oximetry 94 94 Oxygen Delivery Method Room Air Room Air 02/07/23 20:10 02/07/23 20:55 02/07/23 23:50 Temperature 98.8 F Pulse Rate 120 H 108 H Respiratory Rate 18 Blood Pressure 96/52 L 91/56 L Pulse Oximetry 94 Oxygen Delivery Method Room Air 02/08/23 03:40 02/08/23 03:42 02/08/23 05:01 Temperature 102.9 F H 100.6 F H Pulse Rate 134 H Respiratory Rate 18 Blood Pressure 120/54 L Pulse Oximetry 96 Oxygen Delivery Method Room Air 02/08/23 07:41 02/08/23 07:45 Temperature 98.6 F 98.6 F Pulse Rate 106 H 106 H Respiratory Rate 20 20 Blood Pressure 115/60 115/60 Pulse Oximetry 97 98 Oxygen Delivery Method Room Air Room Air BMI result Body Mass Index 27.5 Labs 02/08/23 05:47 02/08/23 05:47 Labs: Laboratory Results - last 48 hr 02/04/23 02/04/23 02/07/23 16:30 16:30 06:29 WBC 15.2 H RBC 2.35 L Hgb 6.4 L* Hct 19.8 L* MCV 84.3 MCH 27.2 MCHC 32.3 RDW 16.7 H Plt Count 317 D MPV 10.8 Absolute Nucleated RBC 0.000 Nucleated RBC % (auto) 0.0 Sodium Potassium Chloride Carbon Dioxide Anion Gap BUN Creatinine Estim Creat Clear Calc Estimated GFR Fasting Glucose Calcium Hepatitis C Ab (EIA) Reactive H HIV 1&2 Ab/P24 Ag 4thGn Nonreactive Blood Type Antibody Screen Crossmatch 02/07/23 02/07/23 02/08/23 06:29 07:48 05:47 WBC 12.7 H RBC 2.62 L Hgb 7.4 L Hct 22.5 L MCV 85.9 MCH 28.2 MCHC 32.9 RDW 17.2 H Plt Count 372 MPV 10.6 Absolute Nucleated RBC 0.000 Nucleated RBC % (auto) 0.0 Sodium 136 Potassium 3.7 Chloride 106 Carbon Dioxide 23 Anion Gap 11 L BUN 29 H Creatinine 0.75 Estim Creat Clear Calc 135.8 Estimated GFR > 60 Fasting Glucose 76 Calcium 8.0 L Hepatitis C Ab (EIA) HIV 1&2 Ab/P24 Ag 4thGn Blood Type A Positive Antibody Screen NEGATIVE Crossmatch See Detail 02/08/23 05:47 WBC RBC Hgb Hct MCV MCH MCHC RDW Plt Count MPV Absolute Nucleated RBC Nucleated RBC % (auto) Sodium 134 L Potassium 3.5 Chloride 104 Carbon Dioxide 20 L Anion Gap 14 BUN 18 H Creatinine 0.71 Estim Creat Clear Calc 140.1 Estimated GFR > 60 Fasting Glucose 122 H Calcium 8.0 L Hepatitis C Ab (EIA) HIV 1&2 Ab/P24 Ag 4thGn Blood Type Antibody Screen Crossmatch Imaging Radiology Impressions: ITS Impressions Chest X-Ray 01/29/23 07:47 IMPRESSION: Multifocal regions of disease which may be related to multifocal pneumonitis. Abdomen/Pelvis CT 01/29/23 08:33 IMPRESSION: 1. Appendix not clearly visualized. However, no inflammatory changes in the right lower quadrant. 2. Numerous patchy and nodular opacities noted throughout the partially visualized right and left lung. Possible cavitation of one of the small left basilar nodular opacities. The appearance is nonspecific. This most likely reflect an infectious or inflammatory process. The overall appearance raises the question of septic emboli neoplasm cannot be excluded but is thought to be much less likely. Fleischner guidelines were followed. Pulmonary Perfusion Imaging 01/29/23 11:00 IMPRESSION: Matched perfusion and chest x-ray findings. Findings are indeterminate. However there are peripheral filling defects in both superior segment lower lobe. Findings are suspicious for PE. Chest CTA 01/30/23 10:38 IMPRESSION: 1. A short segment subsegmental clot is newly identified in the left lower lobe. No large central or segmental pulmonary emboli. Technically limited exam. Recommend bilateral leg ultrasound. 2. Multiple ill-defined progressive pulmonary nodules, at least one with cavitation. Leading differential considerations include necrotizing vasculitis such as Taqueria's granulomatosis or septic emboli. Recommend immediate vasculitis workup. Recommend blood cultures and echocardiography. Lymphoma/leukemia is an additional consideration. This severe rapidly progressive diffuse lung disease is almost certainly the cause of the patient's symptoms and elevated d-dimer. 3. Pulmonary arterial hypertension. Evidence of increased right heart pressures. Recommend echocardiography. 4. New bilateral multifocal consolidation primarily seen posteriorly. New bilateral right greater than left effusions. Aspiration pneumonia or hemorrhage are considerations. 5. Hepatosplenomegaly. VTE: positive Chest X-Ray 02/01/23 05:03 IMPRESSION: * Left internal jugular triple lumen catheter terminates in the mid SVC. * Worsening bilateral multifocal patchy airspace opacities. Head CT 02/01/23 11:57 IMPRESSION: No acute intracranial hemorrhage or territorial infarction. No acute findings. Chest X-Ray 02/01/23 17:26 IMPRESSION: 1. Endotracheal tube 4 cm above the edilberto. 2. Left IJ catheter tip at caval atrial junction. 3. Nasogastric tube in stomach. 4. Persistent extensive bilateral airspace opacities. Chest X-Ray 02/02/23 11:52 IMPRESSION: Enteric catheter seen traversing to the stomach. Some improvement in bilateral interstitial and airspace disease since yesterday's study. KUB X-Ray 02/03/23 16:11 IMPRESSION: Air-filled slightly distended stomach and colon probably representing an ileus. Central location of bowel loops are questionable for ascites. No ascites seen on prior CT scan 01/29/2023. Increasing nodular opacities at the lung bases from recent exams. Medications Medications Current Medications Acetaminophen (Acetaminophen 325 Mg Tablet) 975 mg PO Q6H PRN PRN Reason: Mild pain or fever Last Admin: 02/06/23 22:11 Dose: 975 mg Clonidine HCl (Clonidine Hcl 0.1 Mg Tablet) 0.1 mg PO BEDTIME [facility]; Protocol Enoxaparin Sodium (Enoxaparin Sodium 40 Mg/0.4 Ml Syringe) 40 mg SUBCUT Q24H ODES[facility] Last Admin: 02/07/23 10:51 Dose: 40 mg Hydromorphone HCl (Hydromorphone Hcl 2 Mg/Ml Vial) 2 mg IVPUSH Q4H PRN; Protocol PRN Reason: Pain, Moderate(Pain Scale 4-6) Last Admin: 02/08/23 08:08 Dose: 2 mg Daptomycin 575 mg/ Sodium (Chloride) 61.5 mls @ 100 mls/hr IV Q24H [facility] Last Admin: 02/08/23 08:00 Dose: 100 mls/hr Ibuprofen (Ibuprofen 600 Mg Tablet) 600 mg PO Q8H PRN PRN Reason: Fever >100.4 Last Admin: 02/08/23 03:44 Dose: 600 mg Lidocaine (Lidocaine 4 % Patch Adh..Patch) 1 patch TRANSDERMA DAILY [facility]; Protocol Last Admin: 02/08/23 08:01 Dose: 1 patch Lidocaine (Lidocaine 4 % Patch Adh..Patch) 1 patch TRANSDERMA DAILY [facility]; Protocol Last Admin: 02/08/23 08:18 Dose: 1 patch Lorazepam (Lorazepam 1 Mg Tablet) 1 mg PO BID PRN PRN Reason: anxiety/restlessness Last Admin: 02/07/23 18:05 Dose: 1 mg Methadone HCl (Methadone Hcl 20 Mg/2 Ml Oral.Conc) 60 mg PO DAILY [facility] Last Admin: 02/08/23 08:00 Dose: 60 mg Ondansetron HCl (Ondansetron Hcl 4 Mg/2 Ml Vial) 4 mg IVPUSH Q6H PRN PRN Reason: Nausea Last Admin: 02/08/23 03:34 Dose: 4 mg Oxycodone HCl (Oxycodone Hcl Immed Release 5 Mg Tablet) 5 mg PO Q6H PRN PRN Reason: Pain, Moderate(Pain Scale 4-6) Last Admin: 02/07/23 17:24 Dose: 5 mg Allergies Allergies Allergy/AdvReac Type Severity Reaction Status Date / Time tree nut [TREE NUT] Allergy Unknown ANAPHYLAXIS Verified 11/06/22 01:11 Assessment & Plan Assessment & Plan (1) Opioid use disorder: Status: Acute Code(s): F11.90 - Opioid use, unspecified, uncomplicated Assessment and Plan: continue methadone at 60mg clonidine admin time changed to HS only--this may have been contributing to drowsiness this morning lorazepam has been changed to BID PRN--has been recieving it sporadically. Will d/c before the end of the week Total time managing care of this patient today __25__ minutes.
--- NOTE | 2023-02-08 10:03 | P.PNCA_ITS ---
Subjective Subjective Date of Service: 02/08/23 Principal diagnosis: Tricuspid valve endocarditis Interval history: Patient continues to have febrile episodes. Had another set of blood cultures drawn today. Remains with tachycardia. Seems to be more comfortable today. Review of Systems Constitutional: Reports chills, Reports fever(s) and Reports malaise Cardiovascular: Reports no additional cardiovascular complaints Respiratory: Reports pain on inspiration Musculoskeletal: Reports no additional musculoskeletal complaints Reports system reviewed and no additional complaints, except as documented Psychiatric: Reports no additional psychiatric complaints Physical Exam Vital Signs: Last Vital Signs Temp 98.6 F 02/08/23 07:45 Pulse 106 H 02/08/23 07:45 Resp 20 02/08/23 07:45 BP 115/60 02/08/23 07:45 Pulse Ox 98 02/08/23 07:45 O2 Del Method Room Air 02/08/23 07:45 O2 Flow Rate 2 02/07/23 03:35 FiO2 96 02/04/23 15:36 BMI result Body Mass Index 27.5 Const General: comfortable and no acute distress Orientation/consciousness: patient oriented x3 HEENT Other: Unremarkable Head: Yes normal to inspection Neck Neck: Yes normal visual inspection Chest Chest palpation & inspection: normal inspection of the chest Resp Auscultation: clear to auscultation bilaterally Cardio Palpation: normal PMI Heart sounds: S1 normal heart sound present, S2 normal heart sound present, no gallops, no murmurs and no rubs GI Palpation (GI): Soft to palpation Back/Spine/Pelvis Other: unremarkable Skin General skin exam: no rashes or lesions noted Neuro General: patient oriented x3 Extrem General: Yes normal to inspection Psych Mental Status: mental status grossly normal Objective Labs and Meds 02/08/23 05:47 02/08/23 05:47 Lab results: Laboratory Results - last 24 hr 02/07/23 02/08/23 02/08/23 07:48 05:47 05:47 WBC 12.7 H RBC 2.62 L Hgb 7.4 L Hct 22.5 L MCV 85.9 MCH 28.2 MCHC 32.9 RDW 17.2 H Plt Count 372 MPV 10.6 Absolute Nucleated RBC 0.000 Nucleated RBC % (auto) 0.0 Sodium 134 L Potassium 3.5 Chloride 104 Carbon Dioxide 20 L Anion Gap 14 BUN 18 H Creatinine 0.71 Estim Creat Clear Calc 140.1 Estimated GFR > 60 Fasting Glucose 122 H Calcium 8.0 L Blood Type A Positive Antibody Screen NEGATIVE Crossmatch See Detail Progress Note: A&P Assessment and plan (1) Tricuspid valve vegetation: Status: Acute Assessment and Plan: Tricuspid valve endocarditis with septic emboli to the lung with persistent fever and positive bacteremia since the 1 done 2 days ago. Repeat blood cultures have been drawn today on patient's request. Patient is currently on a ppropriate antibiotic therapy. Has moderate tricuspid regurgitation. Will discuss with Cardiothoracic surgery today to review the images and most likely may need to consider tricuspid valve surgery for remains persistently bacteremic and febrile. Unfortunately higher risk for recurrent infection if he does not stop is high risk. Her IV drug abuse. This was discussed with him. He is very motivated not to pursue this lifestyle. Continue supportive management for pain control. Consider evaluation by Behavioral therapy Will continue to follow with you in 2 days Time Spent With Patient Time: Total time managing care of this patient today ____ minutes. Progress Note: Quality Stroke Does the patient have a stroke diagnosis?: No Procedures Date of Service Date of Service: 02/08/23
[2023-02-08] MEDS: Enoxaparin Sodium 40 MG/0.4 ML SYRINGE SUBCUT (10:37)
[2023-02-08] MEDS: oxyCODONE HCl Immed Release 5 MG TABLET PO (15:32)
[2023-02-08] MEDS: LORazepam 1 MG TABLET PO (15:39)
[2023-02-08] MEDS: HYDROmorphone HCl 1 MG/ML SYRINGE IVPUSH ×2 (16:21→21:44)
[2023-02-09] VITALS (9 sets, daily range): BP systolic 100–123; BP diastolic 56–66; PULSE 105–120; RESP 14–20; TEMP 36.8–38.8; O2SAT 92–97
[2023-02-09] MEDS: Ibuprofen 600 MG TABLET PO (00:21)
[2023-02-09] MEDS: HYDROmorphone HCl 1 MG/ML SYRINGE IVPUSH ×3 (01:50→16:27)
--- NOTE | 2023-02-09 05:07 | PC.NURSE ---
Patient started reporting 9/10 bilateral pain in their lungs when inhaling. Patient is alert and oriented x4. Vitals were taken HR:105, BP: 100/61 RR: 16 and O2 96% at 2L NC. MD notifed and no further orders placed.
--- NOTE | 2023-02-09 05:42 | PM.EVENT ---
Event Note Date of Service: 02/09/23 Event Note: Patient with complaints of worsening shortness of breath, bilateral chest pain on deep inspiration. Will obtain CT angiogram PE study Time Spent With Patient Time: Total time managing care of this patient today ____ minutes.
[2023-02-09] MEDS: methADONE HCl 20 MG/2 ML ORAL.CONC 60 MG PO (05:43)
--- NOTE | 2023-02-09 06:36 | PC.NURSE ---
Patient still is having complaints of 9/10 lung pain when inhaling. Still on 2L nasal cannula and o2 96%. Reports feeling relief from their scheduled methadone. MD notified and ordered to administer methadone at 05:43. MD ordered chest CT. Patient is alert and oriented x4 and consent was obtained.
[2023-02-09 07:10] LABS: Hematocrit 22.4 % (42.0-52.0); Hemoglobin 7.3 g/dl (14.0-18.0); Mean Corpuscular HGB Conc 32.6 g/dl (31.0-36.0); Mean Corpuscular Hemoglobin 28.2 pg (27.0-33.0); Mean Corpuscular Volume 86.5 fL (80.0-98.0); Mean Platelet Volume 9.8 fL (9.4-12.4); Platelet Count 438 X10*3/uL (160-400); Red Blood Count 2.59 X10*6/uL (4.60-5.80); Red Cell Distribution Width 17.4 % (11.0-16.0); White Blood Count 11.2 X10*3/uL (4.8-10.8)
[2023-02-09 07:34] LABS: Anion Gap 13 (12-20); Blood Urea Nitrogen 11 mg/dL (9-16); Calcium 8.6 mg/dL (8.4-10.2); Carbon Dioxide 23 mmol/L (22-29); Chloride 104 mmol/L (96-108); Creatinine Clr Calc Pharmacy 165.8; Estimated Glomerular Filt Rate > 60; Glucose Fasting 89 mg/dL (60-99); Potassium 3.9 mmol/L (3.3-5.1); Sodium 136 mmol/L (135-145)
[2023-02-09] MEDS: DAPTOmycin 575 MG in 0.9 % Sodium Chloride 50 ML 100 MG IV (09:05)
[2023-02-09] MEDS: Lidocaine 4 % Patch ADH..PATCH 1 PATCH TRANSDERMA (09:05)
[2023-02-09] MEDS: LORazepam 1 MG TABLET PO (09:17)
--- NOTE | 2023-02-09 09:32 | P.PNCA_ITS ---
Subjective Subjective Date of Service: 02/09/23 Principal diagnosis: Tricuspid valve endocarditis Interval history: Patient had some chest pain and shortness of air with overnight. Could not tolerate CT scan of the chest. Most likely recurrent septic emboli. Remains febrile and his repeat cultures yesterday are again positive for g positive cocci. Getting appropriate antibiotic therapy. Review of Systems Constitutional: Reports fever(s), Reports malaise and Reports weakness Cardiovascular: Denies lightheadedness, Denies palpitations and Denies orthopnea Respiratory: Reports pain on inspiration and Reports pain with cough Gastrointestinal: Reports no additional gastrointestinal complaints Reports weakness Endocrine: Denies palpitations Physical Exam Vital Signs: Last Vital Signs Temp 98.5 F 02/09/23 08:14 Pulse 105 H 02/09/23 08:14 Resp 20 02/09/23 09:18 BP 103/65 02/09/23 08:14 Pulse Ox 96 02/09/23 08:14 O2 Del Method Nasal Cannula 02/09/23 08:14 O2 Flow Rate 2 02/09/23 08:14 FiO2 96 02/04/23 15:36 BMI result Body Mass Index 27.5 Const General: cooperative, alert, awake, in distress mild and other (Pain) and ill appearing Neck Neck: Yes trachea midline, Yes supple and Yes no JVD Resp Effort & Inspection: decreased respiratory effort Auscultation: diminished lung sounds Cardio Rate: tachycardic Rhythm: regular rhythm Heart sounds: S1 normal heart sound present, S2 normal heart sound present, no click, no gallops and Murmur heart sound present systolic GI Auscultation: normal bowel sounds Skin General skin exam: no rashes or lesions noted Neuro General: no focal motor deficits Objective Labs and Meds 02/09/23 06:54 02/09/23 06:54 Lab results: Laboratory Results - last 24 hr 02/09/23 02/09/23 06:54 06:54 WBC 11.2 H RBC 2.59 L Hgb 7.3 L Hct 22.4 L MCV 86.5 MCH 28.2 MCHC 32.6 RDW 17.4 H Plt Count 438 H MPV 9.8 Absolute Nucleated RBC 0.000 Nucleated RBC % (auto) 0.0 Sodium 136 Potassium 3.9 Chloride 104 Carbon Dioxide 23 Anion Gap 13 BUN 11 Creatinine 0.60 Estim Creat Clear Calc 165.8 Estimated GFR > 60 Fasting Glucose 89 Calcium 8.6 D Progress Note: A&P Assessment and plan (1) Infective endocarditis of tricuspid valve: Status: Acute Assessment and Plan: 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 Requires surgical evaluation and treatment. He has a large vegetation on the tricuspid valve with moderate tricuspid regurgitation. Most likely require bioprosthetic valve replacement. High risk for recurrent endocarditis if he does not changed. AVR. This was discussed with him. Consider Behavioral therapy consultation. Continue aggressive medical management and pain control as well as supportive therapy. Continue aggressive IV antibiotic therapy. Patient to be transferred to [facility]. Time Spent With Patient Time: Total time managing care of this patient today ____ minutes. Progress Note: Quality Stroke Does the patient have a stroke diagnosis?: No Procedures Date of Service Date of Service: 02/09/23
[2023-02-09] MEDS: oxyCODONE HCl Immed Release 5 MG TABLET PO (11:13)
[2023-02-09] MEDS: Enoxaparin Sodium 40 MG/0.4 ML SYRINGE SUBCUT (11:15)
--- NOTE | 2023-02-09 11:28 | MHC.CM.PN ---
EMR reviewed and per MD rounds, pt to be medically transferred to [facility]. CM will continue to follow.
--- NOTE | 2023-02-09 11:34 | P.DS_ITS ---
DS: Providers Provider Date of Service: 02/09/23 Date of admission: 01/29/23 15:14 Primary care physician: Rody Aguirre DO Consults: 01/31/23 10:08 Consult to Cardiology Routine [place]ing [place] [facility] [place] [facility] Reason for consultation: Endocarditis with valvular vegetation Has provider been notified: No 01/31/23 14:44 Consult for Sitter Routine Reason for consultation: patient safety Has provider been notified: No 02/03/23 13:55 Consult to Care Team Routine Comment: Reason for consultation: addiction 02/04/23 09:18 Consult to Infectious Diseases Routine Consulting Provider[place] [facility] [place] Reason for consultation: ivda endocarditis, large TV vegetation, mrsa DS: Diagnosis Discharge Diagnosis (1) Infective endocarditis of tricuspid valve: Status: Acute (2) MRSA bacteremia: Status: Acute (3) MRSA pneumonia: Status: Acute (4) Tricuspid valve vegetation: Status: Acute (5) Acute respiratory failure with hypoxia: Status: Acute (6) Toxic encephalopathy: Status: Acute (7) Polysubstance abuse: Status: Acute (8) Sepsis: Status: Acute (9) Acute septic pulmonary embolus: Status: Acute (10) MEHDI (acute kidney injury): Status: Acute (11) Acidosis, lactic: Status: Acute (12) Hypotension: Status: Acute DS: Summary Hospital Course Hospital Course: Admission note HPI from ICU ?27-year-old gentleman admitted on 01/29/2023 with initial complaints of malaise and fever.? On ER evaluation hypertensive with concern for sepsis with suboptimal response to initial IV fluid resuscitation requiring colloidal support.? Also is polysubstance abuse/withdrawal.? Admitted to intensive care unit and started broad-spectrum antibiotics. Hospital course A 27-year-old gentleman admitted on 01/29/2023 with initial complaints of malaise and fever? Secondary to staphylococcal bacteremia.? On ER evaluation hypotensive with concern for sepsis with suboptimal response to initial IV fluid resuscitation requiring colloidal support.? Also with polysubstance abuse/withdrawal.? Admitted to intensive care unit and started broad-spectrum antibiotics. Further hospital course significant for MRSA endocarditis with large tricuspid vegetation, septic pulmonary emboli, MRSA pneumonia with cavitation, acute hypoxic respiratory failure requiring intubation on 02/01/2023.? ABBIE on 02/02/2023 is negative for left-sided valvular vegetation.? Extubated uneventfully on 02/03/2023. Evaluated by ID who recommended Daptomycin. All repeated blood cultures continued to be positive. last of 02/08. the patient continue to spike fever and report difficulties breathing while on 2-3L of oxygen. refused to repeat CTA. case discussed with [facility] cardiac surgery by bumper machine operator with a plan to transfer to [facility] for surgical intervention. Evaluated by addicition team for opiate dependence.started on Methadone 60 mg ddaily. Acute kidney injury resolved. Hypernatremia resolved. Recieved 1 unit of blood for worsening symptomatic anemia. stable above 7. Time Spent with Patient Time attestation: Total time managing care of this patient today ____ minutes. Discharge coordination time: Greater than 30 minutes Quality: Safe Use of Opioids Does Pt have an Active Cancer Diagnosis on the Problem List?: No Quality: Stroke Does the patient have a stroke diagnosis?: No Physical Exam Vital Signs: Vital Signs: Last Vital Signs Temp 100.6 F H 02/09/23 11:05 Pulse 112 H 02/09/23 11:05 Resp 20 02/09/23 11:05 BP 113/66 02/09/23 11:05 Pulse Ox 97 02/09/23 11:05 O2 Del Method Nasal Cannula 02/09/23 11:05 O2 Flow Rate 2 02/09/23 11:05 FiO2 96 02/04/23 15:36 BMI result Body Mass Index 27.5 Const: Other: Constitutional : Awake with stimuli, looks ill, mildly distressed Neck : Normal inspection, Supple Cardiovascular : RRR, tachycardia, no JVP, no lower extremity edema Respiratory : fair bilateral air entry, basal fine crackles, wheezes or rhonchi Gastrointestinal: soft, lax, Normal bowel sounds, Non tender Skin : Warm, Dry Neurological : Alert with stimulation & oriented x3, No focal deficit but overall weakness DS: Data Data Completed and Pending Labs on day of discharge: Laboratory Results - last 24 hr 02/09/23 02/09/23 06:54 06:54 WBC 11.2 H RBC 2.59 L Hgb 7.3 L Hct 22.4 L MCV 86.5 MCH 28.2 MCHC 32.6 RDW 17.4 H Plt Count 438 H MPV 9.8 Absolute Nucleated RBC 0.000 Nucleated RBC % (auto) 0.0 Sodium 136 Potassium 3.9 Chloride 104 Carbon Dioxide 23 Anion Gap 13 BUN 11 Creatinine 0.60 Estim Creat Clear Calc 165.8 Estimated GFR > 60 Fasting Glucose 89 Calcium 8.6 D Preliminary micro results at discharge 02/08/23 05:48 Blood Culture - Preliminary Blood - Venous Gram positive cocci 02/08/23 05:47 Blood Culture - Preliminary Blood - Venous Prelim: GPC Gram Stain only Imaging Chest x-ray: Radiologist's impression: ITS Impressions Chest X-Ray 01/29/23 07:47 IMPRESSION: Multifocal regions of disease which may be related to multifocal pneumonitis. Abdomen/Pelvis CT 01/29/23 08:33 IMPRESSION: 1. Appendix not clearly visualized. However, no inflammatory changes in the right lower quadrant. 2. Numerous patchy and nodular opacities noted throughout the partially visualized right and left lung. Possible cavitation of one of the small left basilar nodular opacities. The appearance is nonspecific. This most likely reflect an infectious or inflammatory process. The overall appearance raises the question of septic emboli neoplasm cannot be excluded but is thought to be much less likely. Fleischner guidelines were followed. Pulmonary Perfusion Imaging 01/29/23 11:00 IMPRESSION: Matched perfusion and chest x-ray findings. Findings are indeterminate. However there are peripheral filling defects in both superior segment lower lobe. Findings are suspicious for PE. Chest CTA 01/30/23 10:38 IMPRESSION: 1. A short segment subsegmental clot is newly identified in the left lower lobe. No large central or segmental pulmonary emboli. Technically limited exam. Recommend bilateral leg ultrasound. 2. Multiple ill-defined progressive pulmonary nodules, at least one with cavitation. Leading differential considerations include necrotizing vasculitis such as Taqueria's granulomatosis or septic emboli. Recommend immediate vasculitis workup. Recommend blood cultures and echocardiography. Lymphoma/leukemia is an additional consideration. This severe rapidly progressive diffuse lung disease is almost certainly the cause of the patient's symptoms and elevated d-dimer. 3. Pulmonary arterial hypertension. Evidence of increased right heart pressures. Recommend echocardiography. 4. New bilateral multifocal consolidation primarily seen posteriorly. New bilateral right greater than left effusions. Aspiration pneumonia or hemorrhage are considerations. 5. Hepatosplenomegaly. VTE: positive Chest X-Ray 02/01/23 05:03 IMPRESSION: * Left internal jugular triple lumen catheter terminates in the mid SVC. * Worsening bilateral multifocal patchy airspace opacities. Head CT 02/01/23 11:57 IMPRESSION: No acute intracranial hemorrhage or territorial infarction. No acute findings. Chest X-Ray 02/01/23 17:26 IMPRESSION: 1. Endotracheal tube 4 cm above the edilberto. 2. Left IJ catheter tip at caval atrial junction. 3. Nasogastric tube in stomach. 4. Persistent extensive bilateral airspace opacities. Chest X-Ray 02/02/23 11:52 IMPRESSION: Enteric catheter seen traversing to the stomach. Some improvement in bilateral interstitial and airspace disease since yesterday's study. KUB X-Ray 02/03/23 16:11 IMPRESSION: Air-filled slightly distended stomach and colon probably representing an ileus. Central location of bowel loops are questionable for ascites. No ascites seen on prior CT scan 01/29/2023. Increasing nodular opacities at the lung bases from recent exams. Discharge Plan Discharge Anticipated Discharge Date/Time: 02/09/23 11:31 Patient Disposition: [facility] Discharge Diagnosis: Infective endocarditis Referrals: Rody Aguirre DO [Primary Care Provider] - 1 Week Discharge Medications: New clonidine HCl 0.1 mg Tablet 0.1 mg PO BEDTIME Qty: 1 0RF Protocol: Hold for SBP< HOLD for SBP < : 90 methadone [Methadose] 10 mg/mL Concentrate 60 mg PO DAILY Qty: 1 0RF Rx Instructions: Partial Fill upon patient request. lorazepam 1 mg Tablet 1 mg PO BID PRN (Reason: Anxiety/Restlessness) Qty: 1 0RF ibuprofen 600 mg Tablet 600 mg PO Q8H PRN (Reason: Fever >100.4) Qty: 1 0RF hydromorphone 1 mg/mL Syringe 1 mg IVPUSH Q4H PRN (Reason: moderate pain) Qty: 1 0RF Protocol: Hold for RR < HOLD and contact provider for RR < (bpm): 12 Rx Instructions: Partial Fill upon patient request. Continued mirtazapine 15 mg tablet 15 mg PO BEDTIME Discharge Orders: Discharge Order (Routine); Ordered 02/09/23 Ordered By: Kimberly Ortiz Diet: Advance to usual diet Activity on Discharge: As tolerated Stand Alone Forms: Patient Portal Discharge page Care Plan Goals: Read below Health Concerns: Read below Plan of Treatment: Read below Assessment: Transfer to [facility] for surgical intervention and finish antibiotic treatment.
--- NOTE | 2023-02-09 14:04 | MHC.RECOVRN ---
Met with pt in 462 to check in and provide support prior to transfer to [facility]. Pts mother, step father, and father present. Pt laying in bed, eyes closed, briefly opens when speaking. Pt reports pain when breathing but is manageable when laying still. Pt inquiring about increase in methadone dose, encouraged to speak with provider at [facility]. Pt reports this is a wake up call and is invested in treatment. Pt denies other questions or concerns for t/w.
== END 2023-02-09 16:40 | disposition short-term general hospital (02) | DRG 720 ==
LOC: HO.ED 15:16 → HO.EDOVER 15:31 → HO.ICU 15:34 → HO.IMC 02-03 13:51
PROVIDERS: Internal Medicine; Nurse Practitioner Family; Physician Assistant; Admitting Provider Internal Medicine Pulmonary Disease; Emergency Provider Emergency Medicine Emergency Medical Services; PCP Student in an Organized Health Care Education/Training Program; Visit Provider Student in an Organized Health Care Education/Training Program
DX: A41.02 Sepsis due to Methicillin resistant Staphylococcus aureus (principal); I26.90 Septic pulmonary embolism without acute cor pulmonale; J96.01 Acute respiratory failure with hypoxia; I33.0 Acute and subacute infective endocarditis; R65.21 Severe sepsis with septic shock; G92.9 Unspecified toxic encephalopathy; J15.212 Pneumonia due to Methicillin resistant Staphylococcus aureus; K56.7 Ileus, unspecified; I27.21 Secondary pulmonary arterial hypertension; F17.210 Nicotine dependence, cigarettes, uncomplicated; I07.1 Rheumatic tricuspid insufficiency; D64.9 Anemia, unspecified; F10.239 Alcohol dependence with withdrawal, unspecified; J98.4 Other disorders of lung; E87.0 Hyperosmolality and hypernatremia; N17.9 Acute kidney failure, unspecified; F11.20 Opioid dependence, uncomplicated; Z71.6 Tobacco abuse counseling; Z20.822 Contact with and (suspected) exposure to COVID-19; Z79.899 Other long term (current) drug therapy
CPT/HCPCS: 36415; 70450; 71045; 71046; 71275; 74018; 74177; 78580; 80048; 80053; 80076; 80143; 80179; 80202; 80307; 81001; 81003; 82040; 82272; 82550; 82565; 82803; 83605; 83690; 83735; 83880; 84100; 84484; 85007; 85014; 85018; 85025; 85027; 85379; 85610; 85652; 85730; 86140; 86803; 86850; 86900; 86901; 86923; 87040; 87077; 87086; 87147; 87186; 87205; 87389; 87635; 93005; 93306; 93308; 94002; 94003; 94640; 94799; 99285; A9540; C1758; J0131; J0878; J1170; J1200; J1643; J1650; J1885; J1940; J2060; J2250; J2270; J2405; J2543; J2930; J3010; J3370; P9016; P9047; Q9967

== ENCOUNTER 2023-01-29 15:14 | Outpatient (BNV) | payer OTHER, SELFPAY | END 2023-02-06 22:32 | PROVIDERS: Admitting Provider Internal Medicine Pulmonary Disease; Emergency Provider Emergency Medicine Emergency Medical Services; PCP Student in an Organized Health Care Education/Training Program; Visit Provider Internal Medicine Cardiovascular Disease | DX: I33.0 Acute and subacute infective endocarditis (principal) | CPT/HCPCS: 93010 ==

== ENCOUNTER → 2023-01-29 15:14 | Outpatient (BNV) | payer OTHER, SELFPAY | PROVIDERS: Admitting Provider Internal Medicine Pulmonary Disease; Emergency Provider Emergency Medicine Emergency Medical Services; PCP Student in an Organized Health Care Education/Training Program; Visit Provider Internal Medicine | DX: I33.0 Acute and subacute infective endocarditis (principal); R78.81 Bacteremia; B95.62 Methicillin resistant Staphylococcus aureus infection as the cause of diseases classified elsewhere; J15.212 Pneumonia due to Methicillin resistant Staphylococcus aureus; J96.01 Acute respiratory failure with hypoxia; G92.9 Unspecified toxic encephalopathy; F19.10 Other psychoactive substance abuse, uncomplicated; A41.9 Sepsis, unspecified organism; I26.90 Septic pulmonary embolism without acute cor pulmonale; N17.9 Acute kidney failure, unspecified; E87.20 Acidosis, unspecified; I95.9 Hypotension, unspecified | CPT/HCPCS: 99232; 99233; 99239; 99499 ==

== ENCOUNTER → 2023-01-29 15:14 | Outpatient (BNV) | payer OTHER, SELFPAY | PROVIDERS: Admitting Provider Internal Medicine Pulmonary Disease; Emergency Provider Emergency Medicine Emergency Medical Services; PCP Student in an Organized Health Care Education/Training Program; Visit Provider Nurse Practitioner Psychiatric/Mental Health | DX: F11.90 Opioid use, unspecified, uncomplicated (principal) | CPT/HCPCS: 99232 ==

== ENCOUNTER → 2023-01-29 15:14 | Outpatient (BNV) | payer OTHER, SELFPAY | PROVIDERS: Admitting Provider Internal Medicine Pulmonary Disease; Emergency Provider Emergency Medicine Emergency Medical Services; PCP Student in an Organized Health Care Education/Training Program; Visit Provider Internal Medicine Cardiovascular Disease | DX: I33.0 Acute and subacute infective endocarditis (principal) | CPT/HCPCS: 99223; 99232; 99233 ==